=== PATIENT | female | born 1945 | race Caucasian/White ===

== ENCOUNTER 2019-03-11 14:00 | Outpatient (CLI) | payer MEDICARE, SELFPAY ==
--- NOTE | 2019-03-11 14:13 | MR_ITS ---
WS: [id number] MRI LUMBAR SPINE NONCONTRAST HISTORY: DDD COMPARISON: 08/01/2015 TECHNIQUE: Sagittal and axial multisequence imaging is submitted. Moderate increase in thoracic kyphosis and lumbar lordosis. RIGHT convex curvature of the thoracic sp ine and LEFT convex curvature of the lumbar spine. Chronic degenerative changes in the endplates of T4 and T5. Disc desiccation throughout the lumbar spine most significant at L4-5 and L5-S1. Endplate osteophytes and degenerative changes in the vertebral bodies. No marrow edema. Conus terminates normally at L1-2 disc level. L1-L2: Less than 2 mm retrolisthesis of L1. There is mild asymmetric disc bulging to the LEFT. Mild L EFT foraminal stenosis. Moderate facet arthropathy. L2-L3: Annular disc bulging and mild osteophytic ridging with moderate facet arthropathy. Degenerativ e changes are causing mild central and subarticular recess stenosis. Osteophyte encroaches upon the R IGHT lateral thecal sac from the facet. Mild bilateral foraminal narrowing. L3-L4: Moderate annular disc bulging with marked facet and ligamentum flavum arthropathy. Shallow harry tral disc protrusion. Mild central and LEFT foraminal stenosis. Moderate RIGHT subarticular recess an d foraminal stenosis. L4-L5: Annular disc bulging and a moderate size central disc protrusion and marked facet arthropathy. Deformity of the ventral thecal sac. Mild central, subarticular recess and foraminal narrowing. L5-S1: Mild annular disc bulging. No significant stenosis. Paraspinal soft tissues are negative. MR/MR lumbar spine wo con* [id number] IMPRESSION: 1. Moderate progression of degenerative facet disease and disc disease since . 2. Moderate central disc protrusion at L4-5 has increased since the prior stud y. Degenerative changes result in mild central, subarticular recess and foramin al narrowing at L4-5. 3. Moderate central and subarticular recess stenosis and foraminal stenosis at L2-3. 4. Moderate RIGHT subarticular recess and foraminal stenosis at L3-4 and mild central and LEFT foraminal stenosis at L3-4. 5. S-shaped thoracolumbar scoliosis.
== END 2019-03-11 14:01 | disposition home or self-care (01) ==
LOC: RADWPI 14:07
PROVIDERS: Family Provider Family Medicine; PCP Family Medicine; Visit Provider Nurse Practitioner
DX: M51.36 Other intervertebral disc degeneration, lumbar region (principal); M51.26 Other intervertebral disc displacement, lumbar region; M48.061 Spinal stenosis, lumbar region without neurogenic claudication; M41.86 Other forms of scoliosis, lumbar region
CPT/HCPCS: 72148

== ENCOUNTER 2019-03-17 23:12 | Emergency (ER) | payer MEDICARE, SELFPAY ==
[2019-03-17 23:20] VITALS: BP 202/76; PULSE 78; RESP 16; TEMP 36.4; O2SAT 97; BMI 43.4
[2019-03-17 23:41] VITALS: BP 152/66; PULSE 75; PULSE 81; RESP 16; O2SAT 96; O2SAT 97
--- NOTE | 2019-03-17 23:42 | W.ED.GENADLT ---
HPI - General Adult General: Chief complaint: General Medical Stated complaint: high blood sugar Time Seen by Provider: 03/17/19 23:30 History of Present Illness: HPI narrative: Patient complains of high blood sugars over last few days. Patient has put on some weight since . 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 Patient has machine that checks her blood sugar every 5 minutes that she wears. Patient is feeling better now sugar is down to 300. Was told by Dr. Toledo come into the ER and possibly get some IV fluids. Follow-up with him later. Onset (ago): day(s) Associated symptoms: Deny chest pain, dyspnea, headache(s), nausea, rash or vomiting Review of Systems Narrative: high blood sugar Const: Denies: fever, chills or body aches Eyes: Denies: change in vision or blurry vision ENMT: Denies: throat pain or nasal congestion Card: Denies: chest pain or shortness of breath on exertion Resp: Denies: shortness of breath, productive cough or non-productive cough GI: Denies: abdominal pain, nausea or vomiting Musc: Denies: extremity pain Skin/Breast: Denies: rash Neuro: Denies: headache Psych: Denies: anxiety or depression Laci/Lymph: Denies: easy bruising Physical Exam Const: COMMON NORMALS: no apparent distress, average body habitus and oriented x3 HENMT: COMMON NORMALS: normocephalic HEAD & SCALP: normal to inspection and normocephalic FACE & SINUS: normal facial exam Eye: COMMON NORMALS: conjunctivae normal GENERAL EYE: normal appearance of both eyes CONJUNCTIVA: Yes conjunctivae normal Neck/C-Spine: COMMON NORMALS: no JVD Chest: COMMONS NORMALS: inspection of chest normal Resp: COMMON NORMALS: normal respiratory effort and clear to auscultation bilaterally AUSCULTATION: clear to auscultation bilaterally Cardio: COMMON NORMALS: no JVD, regular rate and regular rhythm RATE: regular rate RHYTHM: regular rhythm GI: COMMON NORMALS: normal to inspection, nondistended, normoactive bowel sounds Extremity: COMMON NORMALS: normal to inspection and full ROM Neuro: COMMON NORMALS: oriented x3 Course Vital Signs: Vital signs: Vital Signs Temperature 97.6 F 03/17/19 23:20 Pulse Rate 75 03/17/19 23:41 Respiratory Rate 16 03/17/19 23:41 Blood Pressure 152/66 03/17/19 23:41 Pulse Oximetry 97 03/17/19 23:41 [facility] - General Adult Lab Data: Labs: Lab Results 03/17/19 03/17/19 Range/Units 23:53 23:53 WBC 7.0 (4.0-10.0) 10^3/ uL RBC 4.72 (4.1-5.3) 10^6/u L Hgb 13.7 (11.5-15.3) g/dL Hct 40.9 (37.0-47.0) % MCV 86.7 (81-99) fL MCH 29.0 (28.0-34.0) pg MCHC 33.5 (30.0-36.0) g/dL RDW 13.2 (12.1-15.1) % Plt Count 189 (130-400) 10^3/c mm MPV 10.4 (7.4-10.4) fL Neut % (Auto) 55.3 % Lymph % (Auto) 30.4 % Ward % (Auto) 10.2 % Eos % (Auto) 3.3 % Baso % (Auto) 0.7 % Neut # (Auto) 3.9 (1.8-7.7) 10^3/u L Lymph # (Auto) 2.1 (0.8-4.8) 10^3/u L Ward # (Auto) 0.7 (0.2-0.9) 10^3/u L Eos # (Auto) 0.2 (0.0-0.8) 10^3/u L Baso # (Auto) 0.1 (0.0-0.1) 10^3/u L Nucleated RBC % (a uto) 0 % Nucleated RBCs # 0.0 /100WBC Sodium 139 (136-145) mmol/L Potassium 3.8 (3.5-5.1) mmol/L Chloride 101 (98-107) mmol/L Carbon Dioxide 23 (22-29) mmol/L Anion Gap 18.8 (5-19) BUN 15 (8-23) mg/dL Creatinine 0.7 (0.5-0.9) mg/dL Glucose 273 H (74-106) mg/dL Calcium 9.9 (8.8-10.2) mg/Dl Total Bilirubin 0.3 (0.15-1.2) mg/dL AST 23 (0-32) U/L ALT 34 H (0-33) U/L Alkaline Phosphata se 54 (35-105) IU/L Total Protein 7.5 (6.6-8.7) g/dL Albumin 4.6 (3.5-5.2) g/dL Globulin 2.9 (1.3-4.6) g/dL Discharge Plan Discharge Prescriptions: No Action enalapril maleate 5 mg tablet 5 mg PO BID RF: 0 insulin lispro [Humalog KwikPen Insulin] 100 unit/mL insulin pen 10 unit SUBCUT TID RF: 0 furosemide [Lasix] 40 mg tablet 40 mg PO QAM PRN (Reason: edema) RF: 0 liothyronine 25 mcg tablet 25 mcg PO ONCE RF: 0 mupirocin 2 % ointment 1 applic TOPICAL TID RF: 0 levothyroxine [Synthroid] 200 mcg tablet 200 mcg PO ONCE RF: 0 Coding Level of Care Code ED Golf Sales Manager for Chg Fwd Exam Problem Focused
[2019-03-17] MEDS: sodium chloride 0.9% 1,000 ML 999 ML IV (23:54)
[2019-03-17 23:58] LABS: Basophils # 0.1 10^3/uL (0.0-0.1); Basophils % 0.7 %; Eosinophils # 0.2 10^3/uL (0.0-0.8); Eosinophils % 3.3 %; Hematocrit 40.9 % (37.0-47.0); Hemoglobin 13.7 g/dL (11.5-15.3); Lymphocytes # 2.1 10^3/uL (0.8-4.8); Lymphocytes % 30.4 %; Mean Corpuscular HGB Conc 33.5 g/dL (30.0-36.0); Mean Corpuscular Volume 86.7 fL (81-99); Mean Platelet Volume 10.4 fL (7.4-10.4); Monocytes # 0.7 10^3/uL (0.2-0.9); Monocytes % 10.2 %; Neutrophils # 3.9 10^3/uL (1.8-7.7); Neutrophils % 55.3 %; Nucleated Red Blood Cells % 0 %; Platelet Count 189 10^3/cmm (130-400); Red Blood Count 4.72 10^6/uL (4.1-5.3); Red Cell Distribution Width 13.2 % (12.1-15.1)
[2019-03-18 00:19] LABS: Alanine Aminotransferase 34 U/L (0-33); Albumin Level 4.6 g/dL (3.5-5.2); Alkaline Phosphatase 54 IU/L (35-105); Anion Gap 18.8 (5-19); Aspartate Amino Transferase 23 U/L (0-32); Blood Urea Nitrogen 15 mg/dL (8-23); Calcium 9.9 mg/Dl (8.8-10.2); Carbon Dioxide 23 mmol/L (22-29); Chloride 101 mmol/L (98-107); Globulin 2.9 g/dL (1.3-4.6); Glucose 273 mg/dL (74-106); Potassium 3.8 mmol/L (3.5-5.1); Sodium 139 mmol/L (136-145); Total Bilirubin 0.3 mg/dL (0.15-1.2); Total Protein 7.5 g/dL (6.6-8.7)
[2019-03-18 01:12] VITALS: BP 143/80; PULSE 70; RESP 15; TEMP 36.1; O2SAT 70
== END 2019-03-18 01:14 | disposition home or self-care (01) ==
PROVIDERS: Emergency Provider Nurse Practitioner Family; Family Provider Family Medicine; PCP Family Medicine
DX: R73.9 Hyperglycemia, unspecified (principal); Z79.4 Long term (current) use of insulin
CPT/HCPCS: 36415; 80053; 85025; 96360; 99282; J7030

== ENCOUNTER 2019-05-13 | Outpatient (RCR) | payer MEDICARE, SELFPAY | END 2019-05-18 | disposition home or self-care (01) | LOC: APT | PROVIDERS: Family Provider Family Medicine; PCP Nurse Practitioner; Referring Provider Nurse Practitioner; Visit Provider Nurse Practitioner | DX: M54.16 Radiculopathy, lumbar region (principal) | CPT/HCPCS: 97110; 97140; 97163 ==

== ENCOUNTER → 2019-05-18 09:19 | Outpatient (BNVA) | payer MEDICARE, SELFPAY | PROVIDERS: Family Provider Family Medicine; PCP Family Medicine; Visit Provider Nurse Practitioner | DX: R05 Cough (principal); E11.9 Type 2 diabetes mellitus without complications; I70.90 Unspecified atherosclerosis | CPT/HCPCS: 71046; 85025 ==

== ENCOUNTER → 2019-07-22 14:44 | Outpatient (BNVA) | payer MEDICARE, SELFPAY | PROVIDERS: Family Provider Family Medicine; PCP Family Medicine; Visit Provider Podiatrist Foot & Ankle Surgery | DX: M79.672 Pain in left foot (principal); M85.872 Other specified disorders of bone density and structure, left ankle and foot; M20.42 Other hammer toe(s) (acquired), left foot; M19.072 Primary osteoarthritis, left ankle and foot; M21.42 Flat foot [pes planus] (acquired), left foot; M77.32 Calcaneal spur, left foot | CPT/HCPCS: 73630 ==

== ENCOUNTER → 2019-08-04 14:22 | Outpatient (BNVA) | payer MEDICARE, SELFPAY | PROVIDERS: Family Provider Family Medicine; PCP Nurse Practitioner; Visit Provider Specialist | DX: F43.10 Post-traumatic stress disorder, unspecified (principal); M48.062 Spinal stenosis, lumbar region with neurogenic claudication; R41.3 Other amnesia | CPT/HCPCS: 99214 ==

== ENCOUNTER 2019-09-16 09:39 | Outpatient (CLI) | payer MEDICARE, SELFPAY ==
--- NOTE | 2019-09-16 13:03 | PFTS_ITS ---
Date of Study:09/16/19 Date of Dictation: MECHANICS: Forced vital capacity (FVC) is normal. Forced expiratory volume in one second (FEV1) is normal. FEV1/FVC is normal. FLOW VOLUME LOOP: Normal except hesitation in the beginning of the forced expiratory maneuver. LUNG VOLUMES: Total lung capacity (TLC) is normal. Residual volume (RV) is normal. DIFFUSING CAPACITY FOR CARBON MONOXIDE: Normal. INTERPRETATION: The pulmonary function tests are normal. Lung volumes are normal. Gas exchange (DLCO) is normal. MTDD
== END 2019-09-16 09:40 | disposition home or self-care (01) ==
LOC: RT 09:45
PROVIDERS: PCP Nurse Practitioner; Visit Provider Internal Medicine Critical Care Medicine
DX: R06.02 Shortness of breath (principal)
CPT/HCPCS: 94010; 94726; 94729

== ENCOUNTER 2019-09-23 11:16 | Outpatient (CLI) | payer MEDICARE, SELFPAY ==
--- NOTE | 2019-09-23 11:38 | MM_ITS ---
WS: [id number] BILATERAL DIGITAL SCREENING MAMMOGRAPHY WITH CAD CLINICAL INFORMATION: HX RT BREAST CA HISTORY: Screening mammogram. No current complaints. COMPARISON: TECHNIQUE: Bilateral CC and MLO views. FINDINGS: Scattered fibroglandular densities bilaterally. Evidence of prior lumpectomy right breast. Skin thick ening with prior treatment-related changes. Surgical clips right axilla. No suspicious focal mass, as ymmetry, calcifications, or architectural distortion. No evidence of malignancy. Incidental punctate calcifications. MM/[place] [id number] IMPRESSION: BI-RADS: 2-Benign FOLLOW UP: 1 Year Follow-up Recommend return to annual diagnostic mammography.
== END 2019-09-23 11:17 | disposition home or self-care (01) ==
LOC: RADSHAW 11:22
PROVIDERS: PCP Nurse Practitioner; Visit Provider Surgery Surgical Oncology
DX: Z85.3 Personal history of malignant neoplasm of breast (principal)
CPT/HCPCS: 77066

== ENCOUNTER 2019-10-27 11:00 | Outpatient (CLI) | payer MEDICARE, SELFPAY | END 2019-10-27 11:01 | disposition home or self-care (01) | LOC: SLEEP 10-28 10:40 | PROVIDERS: PCP Nurse Practitioner; Visit Provider Internal Medicine Critical Care Medicine | DX: R06.02 Shortness of breath (principal) | CPT/HCPCS: 73630; 94762 ==

== ENCOUNTER → 2019-11-10 09:44 | Outpatient (BNVA) | payer MEDICARE, SELFPAY | PROVIDERS: PCP Nurse Practitioner; Visit Provider Nurse Practitioner | DX: E11.65 Type 2 diabetes mellitus with hyperglycemia (principal); E03.8 Other specified hypothyroidism; Z79.4 Long term (current) use of insulin; M35.00 Sjogren syndrome, unspecified | CPT/HCPCS: 80053; 85025; 85651; 86225 ==

== ENCOUNTER → 2019-11-29 10:19 | Outpatient (BNVA) | payer MEDICARE, SELFPAY | PROVIDERS: PCP Nurse Practitioner; Visit Provider Nurse Practitioner | DX: M35.00 Sjogren syndrome, unspecified (principal); E03.9 Hypothyroidism, unspecified | CPT/HCPCS: 80069; 85651; 86038; 86140; 86225; 86235 ==

== ENCOUNTER 2019-12-11 05:39 | Emergency (ER) | payer MEDICARE, SELFPAY ==
[2019-12-11 05:55] VITALS: BP 155/69; PULSE 84; RESP 20; TEMP 36; O2SAT 98; BMI 43.7
--- NOTE | 2019-12-11 06:14 | XRR_ITS ---
PROCEDURE INFORMATION: Exam: XR Left Foot Complete Exam date and time: 12/11/2019 6:16 AM Age: 74 years old Clinical indication: Patient HX: Chronic left foot pain. History of pad and diabetes. TECHNIQUE: Imaging protocol: XR Left foot. Views: 3 or more views. COMPARISON: CR XR foot LT min 3V* [id number] 10/27/2019 9:51 AM FINDINGS: Bones/joints: Degenerative change. Small calcaneal spur. No acute bony injury or malalignment. Soft tissues: Calcification at the Achilles and peroneus tendon attachment sites. When correlating with the previous study, no significant interval changes are present. XR/XR foot LT min 3V* [id number] IMPRESSION: Degenerative change.
[2019-12-11 06:29] LABS: Basophils % 0.7 %; Eosinophils # 0.1 10^3/uL (0.0-0.8); Eosinophils % 2.6 %; Hematocrit 41.6 % (37.0-47.0); Hemoglobin 13.7 g/dL (11.5-15.3); Lymphocytes # 1.5 10^3/uL (0.8-4.8); Lymphocytes % 27.1 %; Mean Corpuscular HGB Conc 32.9 g/dL (30.0-36.0); Mean Platelet Volume 10.7 fL (7.4-10.4); Monocytes # 0.5 10^3/uL (0.2-0.9); Monocytes % 9.4 %; Neutrophils # 3.25 10^3/uL (1.8-7.7); Nucleated Red Blood Cells % 0 %; Platelet Count 172 10^3/cmm (130-400); Red Blood Count 4.57 10^6/uL (4.1-5.3); Red Cell Distribution Width 13.1 % (12.1-15.1); White Blood Count 5.4 10^3/uL (4.0-10.0)
[2019-12-11 07:01] LABS: Alanine Aminotransferase 48 U/L (0-33); Alkaline Phosphatase 44 IU/L (35-105); Anion Gap 15.9 (5-19); Aspartate Amino Transferase 42 U/L (0-32); Blood Urea Nitrogen 14 mg/dL (8-23); Calcium 9.2 mg/dL (8.5-10.5); Carbon Dioxide 23 mmol/L (22-29); Chloride 102 mmol/L (98-107); Creatinine Clr Calc Pharmacy 72.0184; Globulin 2.7 g/dL (1.3-4.6); Glucose 226 mg/dL (65-115); Osmolality Calculated 292 mOsm/kg (285-295); Potassium 3.9 mmol/L (3.5-5.1); Sodium 137 mmol/L (136-145); Total Bilirubin 0.5 mg/dL (0.15-1.2); Total Protein 6.7 g/dL (6.6-8.7)
--- NOTE | 2019-12-11 07:25 | ED_ITS ---
HPI - Extremity Problem General: Chief complaint: Extremity Problem,Nontraumatic Stated complaint: Left Foot Pain/Redness Time Seen by Provider: 12/11/19 06:07 History of Present Illness: HPI Narrative: 74-year-old female presents the emergency room complaining of left foot pain this been ongoing issue. She is opposed to any oral medications for that she has been using a topical diclofenac she is adamant at the outset not wanting to take any oral anti-inflammatories or steroids she says she is allergic to them and they cause anaphylaxis. She has been using topical diclofenac. MD Complaint: extremity pain, extremity swelling and joint pain Onset (ago): year(s) Pain Consistency: constant Location: left Quality: aching Radiation: none Relieving factors: rest Exacerbating factors: walking Associated symptoms: Reports arthralgias; Deny chest pain, fever(s), myalgias, rash or short of breath Review of Systems Const: Denies: fever(s) Card: Denies: chest pain Skin/Breast: Denies: rash PFSH ED PFSH: Medical History Adult onset hypothyroidism Chronic bilateral thoracic back pain Controlled diabetes mellitus with hyperglycemia, with long-term current use of insulin Lumbar disc disease with radiculopathy Sjogren's disease Surgical History History of lumpectomy of right breast History of total bilateral knee replacement Hx of cholecystectomy Hx of vaginal hysterectomy Family History Unknown Adopted [place] in [place] Social History Smoking and tobacco status: never smoked Second hand smoke exposure: No Smoking risk assessment/counseling performed?: No Alcohol intake: never Desire information about alcohol rehabilitation?: No Counseling given: No Desire information about substance/drug rehabilitation?: No Counseling given: No Adopted: Yes Caregiver/support person: No Lives independently: Yes Household members: spouse Marital status: Number of children: 1 service: No Current occupational status: unemployed and retired History of recent travel: No Current gender identity: Female Physical Exam Const: COMMON NORMALS: no acute distress GENERAL APPEARANCE: cooperative an d comfortable ORIENTATION/CONSCIOUSNESS: Yes awake, Yes oriented to person, Yes oriented to place and Yes oriented to time HENMT: COMMON NORMALS: normocephalic, atraumatic and hearing grossly normal bilaterally HEAD & SCALP: normocephalic and atraumatic Neck/C-Spine: COMMON NORMALS: no JVD Lymph: LYMPHATIC: no lymphadenopathy noted and no lymphedema noted Resp: COMMON NORMALS: normal respiratory effort, No retractions, No use of a ccessory muscles and clear to auscultation bilaterally AUSCULTATION: clear to auscultation bilaterally Cardio: COMMON NORMALS: no JVD, regular rate, regular rhythm and No murmurs present (Cardio) RATE: regular rate RHYTHM: regular rhythm GI: COMMON NORMALS: Soft to palpation and No hepatosplenomegaly present AUSCULTATION: Yes normoactive bowel sounds PALPATION: Yes Soft to palpation, No Tenderness to palpation present (GI), No Guarding due to palpation present (GI) and Yes No hepatosplenomegaly present Extremity: COMMON NORMALS: normal to inspection, full ROM, capillary refill normal, no joint enlargement and no calf tenderness NARRATIVE EXTREMITY EXAM: No erythema or deformity of the foot dorsum plantar flex strength 5 of 5 dorsalis pedis posterior tibialis pedis palpable. Neuro: SENSORIUM/ORIENTATION: Yes oriented to person, Yes oriented to place and Yes oriented to time Skin: COMMON NORMALS: no rashes or lesions noted GENERAL SKIN EXAM: no rashes or lesions noted Course Vital Signs: Vital signs: Vital Signs Temperature 96.8 F L 12/11/19 05:55 Pulse Rate 79 12/11/19 08:30 Respiratory Rate 18 12/11/19 08:30 Blood Pressure 145/105 12/11/19 08:30 Pulse Oximetry 95 12/11/19 08:30 MDM - Extremity (Nontraumatic) MDM Narrative: Medical decision making narrative: Reviewed the notes from Dr. Redding. I think she may have some lumbar radiculopathy given her previous imaging. She does have some arthritis of the great toe. I do not know at this point if anything regarding her complaint can be definitively diagnosed in the emergency room beyond what is already been done she has had this complaint for a year. Recommend that she follow-up with her primary care doctor to explore lumbar radiculopathy as a cause of her symptoms including possible further advanced imaging or EMG or referral to neurosurgery if felt appropriate. As far as the direct discomfort in her foot recommend that she follow-up again with Dr. Redding to see if he feels there is anything else that can be done beyond what has been done in the past. Lab Data: Labs: Lab Results 12/11/19 12/11/19 Range/Units 06:24 06:24 WBC 5.4 (4.0-10.0) 10^3/ uL RBC 4.57 (4.1-5.3) 10^6/u L Hgb 13.7 (11.5-15.3) g/dL Hct 41.6 (37.0-47.0) % MCV 91.0 (81-99) fL MCH 30.0 (28.0-34.0) pg MCHC 32.9 (30.0-36.0) g/dL RDW 13.1 (12.1-15.1) % Plt Count 172 (130-400) 10^3/c mm MPV 10.7 H (7.4-10.4) fL Neut % (Auto) 60.0 % Lymph % (Auto) 27.1 % [place] % (Auto) 9.4 % Eos % (Auto) 2.6 % Baso % (Auto) 0.7 % Neut # (Auto) 3.25 (1.8-7.7) 10^3/u L Lymph # (Auto) 1.5 (0.8-4.8) 10^3/u L [place] # (Auto) 0.5 (0.2-0.9) 10^3/u L Eos # (Auto) 0.1 (0.0-0.8) 10^3/u L Baso # (Auto) 0.0 (0.0-0.1) 10^3/u L Nucleated RBC % (a uto) 0 % Nucleated RBCs # 0.0 /100WBC Sodium 137 (136-145) mmol/L Potassium 3.9 (3.5-5.1) mmol/L Chloride 102 (98-107) mmol/L Carbon Dioxide 23 (22-29) mmol/L Anion Gap 15.9 (5-19) BUN 14 (8-23) mg/dL Creatinine 0.8 (0.5-0.9) mg/dL GFR Calculation Not Reportable Glucose 226 H (65-115) mg/dL Calculated Osmolal ity 292 (285-295) mOsm/k g Calcium 9.2 (8.5-10.5) mg/dL Total Bilirubin 0.5 (0.15-1.2) mg/dL AST 42 H (0-32) U/L ALT 48 H (0-33) U/L Alkaline Phosphata se 44 (35-105) IU/L Total Protein 6.7 (6.6-8.7) g/dL Albumin 4.0 (3.5-5.2) g/dL Globulin 2.7 (1.3-4.6) g/dL Discharge Plan Discharge Patient Disposition: Home Clinical Impression: Arthritis of big toe, Lumbar stenosis with neurogenic claudication, Lower extremity edema Condition: Stable Prescriptions: No Action furosemide [Lasix] 40 mg tablet 40 mg PO QAM PRN (Reason: edema) RF: 0 mupirocin 2 % ointment 1 applic TOPICAL TID PRNRF: 0 (DME) nebulizer accessories Kit See Rx Instructions .ROUTE .MEDSUPPLY Qty: 1 RF: 0 liothyronine 25 mcg tablet 25 mcg PO DAILY Qty: 90 RF: 1 enalapril maleate 5 mg tablet 5 mg PO BID Qty: 180 RF: 0 Levemir U-100 Insulin 100 unit/mL solution 80 unit SUBCUT BID Qty: 50 RF: 5 insulin lispro [Humalog KwikPen Insulin] 100 unit/mL insulin pen See Rx Instructions SUBCUT .COMPLEX Qty: 45 RF: 2 levothyroxine [Synthroid] 200 mcg tablet 200 mcg PO DAILY Qty: 90 RF: 0 guaifenesin 400 mg tablet 400 mg PO TID PRNRF: 0 nattokinease PO DAILY RF: 0 levalbuterol HCl [Xopenex] 1.25 mg/3 mL solution for nebulization 2.5 mg INHALATION Q4H PRN (Reason: shortness of breath or wheezing) RF: 0 montelukast 10 mg tablet 10 mg PO DAILY 90 Days Qty: 90 RF: 3 Discharge Orders: Discharge Order (Routine); Ordered 12/11/19 Ordered By: Meng Russ Referrals: Ja Redding DPM [Physician] - (continued L foot pain) Discharge Diet: Usual diet Discharge Activity: Increase activity as tolerated Activity Restrictions/Additional Instructions: Follow up with Dr. Redding as alysha as you are able, return to ER if worsens. Discharge Date/Time: 12/11/19 08:30 Coding Level of Care Code ED [employer] for Allen Llanos
[2019-12-11] MEDS: ketorolac 30 mg/mL INJ IVP (08:01)
[2019-12-11 08:30] VITALS: BP 145/105; PULSE 79; RESP 18; O2SAT 95
== END 2019-12-11 08:30 | disposition home or self-care (01) ==
PROVIDERS: Emergency Provider Family Medicine; PCP Nurse Practitioner
DX: M19.072 Primary osteoarthritis, left ankle and foot (principal); M48.062 Spinal stenosis, lumbar region with neurogenic claudication; R60.0 Localized edema; Z79.4 Long term (current) use of insulin; E11.9 Type 2 diabetes mellitus without complications
CPT/HCPCS: 12345; 73630; 80053; 85025; 96374; 96375; 99282; 99283; J1885

== ENCOUNTER → 2020-03-21 10:03 | Outpatient (BNVA) | payer MEDICARE, SELFPAY | PROVIDERS: PCP Nurse Practitioner; Visit Provider Nurse Practitioner | DX: M19.032 Primary osteoarthritis, left wrist (principal); M25.532 Pain in left wrist | CPT/HCPCS: 73110 ==

== ENCOUNTER → 2020-04-13 08:36 | Outpatient (BNVA) | payer MEDICARE, SELFPAY | PROVIDERS: PCP Nurse Practitioner; Referring Provider Nurse Practitioner; Visit Provider Specialist | DX: M25.532 Pain in left wrist (principal) | CPT/HCPCS: 73110 ==

== ENCOUNTER 2020-05-03 09:10 | Outpatient (RCR) | payer MEDICARE, SELFPAY | END 2020-05-07 23:59 | disposition home or self-care (01) | LOC: SOT 09:10 | PROVIDERS: PCP Nurse Practitioner; Referring Provider Specialist; Visit Provider Specialist | DX: S60.212D Contusion of left wrist, subsequent encounter (principal) | CPT/HCPCS: 97166 ==

== ENCOUNTER 2020-05-08 06:00 | Outpatient (RCR) | payer MEDICARE, SELFPAY | END 2020-06-07 23:59 | disposition home or self-care (01) | LOC: SOT 06:00 | PROVIDERS: PCP Nurse Practitioner; Referring Provider Specialist; Visit Provider Specialist | DX: S60.212D Contusion of left wrist, subsequent encounter (principal); X58.XXXD Exposure to other specified factors, subsequent encounter | CPT/HCPCS: 97035; 97110; 97140 ==

== ENCOUNTER → 2020-06-05 13:38 | Outpatient (BNVA) | payer MEDICARE, SELFPAY | PROVIDERS: PCP Nurse Practitioner; Visit Provider Specialist | DX: M25.532 Pain in left wrist (principal); M19.032 Primary osteoarthritis, left wrist; Z46.89 Encounter for fitting and adjustment of other specified devices | CPT/HCPCS: 73110; L3809 ==

== ENCOUNTER 2020-06-05 15:00 | Outpatient (CLI) | payer MEDICARE, SELFPAY | END 2020-06-05 15:01 | disposition home or self-care (01) | LOC: SPT 15:03 | PROVIDERS: PCP Nurse Practitioner; Visit Provider Orthopaedic Surgery | DX: Z46.89 Encounter for fitting and adjustment of other specified devices (principal); M25.532 Pain in left wrist | CPT/HCPCS: L3809 ==

== ENCOUNTER 2020-06-19 10:21 | Outpatient (CLI) | payer MEDICARE, SELFPAY ==
--- NOTE | 2020-06-19 11:32 | MR_ITS ---
WS: [id number] INDICATION: Left wrist pain TECHNIQUE: MR of the left wrist without gadolinium enhancement. Coronal T1, Coronal PD, coronal STIR, coronal 3-D FSPGR, axial PD, axial T2, sagittal T1, FINDINGS: Palpable marker over the dorsal wrist. Small amount of underlying subcutaneous edema. Edema with partial tear involving the radial collateral ligament. This is deep to the palpable marker. Edema along the adjacent superficial branch of the radial nerve and cephalic vein. Small amount of ed alexis along the extensor pollicis brevis tendon and the abductor pollicis longus tendon. Mild degenerative arthritis radiocarpal joint and DRUJ. No acute fractures. Ulna styloid is normal. N ormal radial styloid. Mild cystic degenerative changes involving the proximal and distal carpal row. Normal scapholunate interval. No evidence of avascular necrosis. Degenerative arthritis first CMC and STT. Proximal metacarpals are normal. Normal extensor compartment tendons. Normal flexor compartment tendons. Normal carpal tunnel. Normal extensor carpi ulnaris. Small amount of edema along the extensor retinaculum. Normal TFCC. MR/MR wrist LT wo con* [id number] IMPRESSION: 1. Edema with partial tear involving the radial collateral ligament along the radial styloid. This is deep to the palpable marker. 2. Soft tissue edema along theExtensor pollicis brevis and abductor pollicis l ongus tendons. 3. Associated edema along the superficial branch of the radial nerve and cepha lic vein. 4. Degenerative arthritis the first CMC and STT. 5. Normal TFCC. 6. Normal scaphoid and lunate.
== END 2020-06-19 10:22 | disposition home or self-care (01) ==
PROVIDERS: PCP Nurse Practitioner; Visit Provider Specialist
DX: M19.032 Primary osteoarthritis, left wrist (principal); R60.0 Localized edema
CPT/HCPCS: 73221

== ENCOUNTER 2020-06-29 12:26 | Outpatient (CLI) | payer MEDICARE, SELFPAY | END 2020-06-29 12:27 | disposition home or self-care (01) | LOC: SPT 12:27 | PROVIDERS: PCP Nurse Practitioner; Visit Provider Specialist | DX: Z46.89 Encounter for fitting and adjustment of other specified devices (principal); S63.502D Unspecified sprain of left wrist, subsequent encounter; X58.XXXD Exposure to other specified factors, subsequent encounter; M65.4 Radial styloid tenosynovitis [de Quervain] | CPT/HCPCS: 97760; L3807 ==

== ENCOUNTER → 2020-07-31 15:46 | Outpatient (BNVA) | payer MEDICARE, SELFPAY | PROVIDERS: PCP Nurse Practitioner; Visit Provider Nurse Practitioner | DX: R30.0 Dysuria (principal); B37.9 Candidiasis, unspecified | CPT/HCPCS: 81000 ==

== ENCOUNTER → 2020-08-08 09:45 | Outpatient (BNVA) | payer MEDICARE, SELFPAY | PROVIDERS: PCP Nurse Practitioner; Visit Provider Specialist | DX: G31.84 Mild cognitive impairment of uncertain or unknown etiology (principal) | CPT/HCPCS: 96116; 99213 ==

== ENCOUNTER → 2020-08-10 11:01 | Outpatient (BNVA) | payer MEDICARE, SELFPAY | PROVIDERS: PCP Nurse Practitioner; Visit Provider Nurse Practitioner | DX: E11.65 Type 2 diabetes mellitus with hyperglycemia (principal); R30.0 Dysuria; Z79.4 Long term (current) use of insulin | CPT/HCPCS: 81003; 87086 ==

== ENCOUNTER → 2020-09-26 09:27 | Outpatient (BNVA) | payer MEDICARE, SELFPAY | PROVIDERS: PCP Nurse Practitioner; Visit Provider Nurse Practitioner | DX: E03.9 Hypothyroidism, unspecified (principal); E11.65 Type 2 diabetes mellitus with hyperglycemia; Z79.4 Long term (current) use of insulin | CPT/HCPCS: 80053; 80061; 82043; 83036; 84439; 84443; 84481; 85025 ==

== ENCOUNTER 2020-10-19 06:00 | Outpatient (RCR) | payer MEDICARE, SELFPAY | END 2020-11-07 23:59 | disposition home or self-care (01) | LOC: SOT 06:00 | PROVIDERS: PCP Nurse Practitioner; Referring Provider Orthopaedic Surgery; Visit Provider Orthopaedic Surgery | DX: M25.532 Pain in left wrist (principal) | CPT/HCPCS: 97035; 97110; 97112; 97166; 97530 ==

== ENCOUNTER → 2020-10-26 11:03 | Outpatient (BNVA) | payer MEDICARE, SELFPAY | PROVIDERS: PCP Nurse Practitioner; Visit Provider Nurse Practitioner Family | DX: Z20.822 Contact with and (suspected) exposure to COVID-19 (principal); Z11.52 Encounter for screening for COVID-19 | CPT/HCPCS: 87635 ==

== ENCOUNTER 2020-11-08 06:00 | Outpatient (RCR) | payer MEDICARE, SELFPAY | END 2020-12-07 23:59 | disposition home or self-care (01) | LOC: SOT 06:00 | PROVIDERS: PCP Nurse Practitioner; Referring Provider Orthopaedic Surgery; Visit Provider Orthopaedic Surgery | DX: M25.532 Pain in left wrist (principal) | CPT/HCPCS: 97110; 97112 ==

== ENCOUNTER → 2020-11-14 12:05 | Outpatient (BNVA) | payer MEDICARE, SELFPAY | PROVIDERS: PCP Nurse Practitioner; Visit Provider Specialist | DX: G31.9 Degenerative disease of nervous system, unspecified (principal) | CPT/HCPCS: 99214 ==

== ENCOUNTER 2020-11-23 08:13 | Outpatient (CLI) | payer MEDICARE, SELFPAY ==
--- NOTE | 2020-11-23 08:27 | CT_ITS ---
WS: [id number] CT HEAD TECHNIQUE: Noncontrast CT of the head obtained from the skullbase to the vertex. CLINICAL INFORMATION: I63.9 - Cerebral infarction, unspecified COMPARISON: CT March 30, 2018 DLP: 992.[address] scans at [facility] use at least one of these dose optimization techniques: automated e xposure control; mA and/or kV adjustment per patient size (includes targeted exams where dose is matc hed to clinical indication); or iterative reconstruction. FINDINGS: No evidence of intracranial hemorrhage or mass effect. Ventricular system and basal cisterns are little nt. Mild small vessel changes with moderate parenchymal volume loss. Cavernous carotid calcification. No extra-axial fluid collections. No evidence of mass or mass effect. Normal dumont-white differentiat ion. Paranasal sinuses and mastoid air cells are well aerated. .Normal visualized soft tissues. CT/CT head wo con* [id number] IMPRESSION: 1. No evidence of intracranial hemorrhage or mass effect. 2. Mild small vessel changes moderate parenchymal volume loss unchanged from p revious. 3. Paranasal sinuses and mastoid air cells are well aerated. 4. Overall no significant changes since March 30, 2018. 5. If concern for ischemia, MRI could be performed for further evaluation.
== END 2020-11-23 08:14 | disposition home or self-care (01) ==
PROVIDERS: PCP Nurse Practitioner; Visit Provider Specialist
DX: I63.9 Cerebral infarction, unspecified (principal)
CPT/HCPCS: 70450

== ENCOUNTER 2020-12-14 10:46 | Outpatient (CLI) | payer MEDICARE, SELFPAY ==
--- NOTE | 2020-12-14 11:00 | USCV_ITS ---
Alisha Hernandez Age: 75 Gender: F : 1945 Exam Date: 12/14/2020 11:23 Ordering Phys: Corrie Husain MD Technologist: KRISTIN [place] [facility] [place]: CAROTID STENOSIS Risk Factors: Previous Vascular Surgery: Right Brachial BP: / Left Brachial BP: / Right Left Velocity (cm/s) Spectral Plaque Velocity (cm/s) Spectral Plaque Syst/Diast Broadening Syst/Diast Broadening 108.00/14.80 Prox CCA 121.20/ 24.90 87.20/ 14.50 Mid CCA 84.90 / 19.80 78.60/ 15.40 Distal CCA 81.60 / 13.20 80.80/ 13.10 Prox ICA 20.90 / 20.90 70.30/ 15.10 Mid ICA 79.40 / 24.30 100.00/26.50 Distal ICA 93.70 / 27.60 125.70 ECA 118.00 0.81 ICA/CCA 0.94 Antegrade Vertebral Antegrade 69.10/ 17.10 cm/s 58.40/ 15.40 cm/s Tri Subclavian Tri 174.0 214.4 0 0 CONCLUSIONS Right ICA stenosis <50%. Mild atheromatous plaque right carotid bulb/ICA. Left ICA stenosis <50%. Mild atheromatous plaque left carotid bulb/ICA. Normal antegrade Doppler flow noted in the right vertebral artery. Normal antegrade Doppler flow noted in the left vertebral artery. Nick Vilchis MD (Electronically Signed) Final Date: 14 December 2020 16:39 S
== END 2020-12-14 10:47 | disposition home or self-care (01) ==
LOC: RAD 10:47
PROVIDERS: PCP Nurse Practitioner; Visit Provider Specialist
DX: I65.23 Occlusion and stenosis of bilateral carotid arteries (principal); R00.2 Palpitations
CPT/HCPCS: 93880

== ENCOUNTER → 2020-12-19 09:04 | Outpatient (BNVA) | payer MEDICARE, SELFPAY | PROVIDERS: PCP Nurse Practitioner; Referring Provider Nurse Practitioner; Visit Provider Internal Medicine | DX: E06.3 Autoimmune thyroiditis (principal); E11.65 Type 2 diabetes mellitus with hyperglycemia; Z79.4 Long term (current) use of insulin | CPT/HCPCS: 99204 ==

== ENCOUNTER → 2020-12-21 10:31 | Outpatient (BNVA) | payer MEDICARE, SELFPAY | PROVIDERS: PCP Nurse Practitioner; Visit Provider Nurse Practitioner | DX: E11.65 Type 2 diabetes mellitus with hyperglycemia (principal); Z79.4 Long term (current) use of insulin; E06.3 Autoimmune thyroiditis; Z23 Encounter for immunization | CPT/HCPCS: 81000; 83036; 84439; 84443; 84480 ==

== ENCOUNTER → 2021-01-09 10:18 | Outpatient (BNVA) | payer MEDICARE, SELFPAY | PROVIDERS: PCP Nurse Practitioner; Visit Provider Internal Medicine | DX: E06.3 Autoimmune thyroiditis (principal); E11.65 Type 2 diabetes mellitus with hyperglycemia; Z79.4 Long term (current) use of insulin | CPT/HCPCS: 84439; 84443; 84480 ==

== ENCOUNTER → 2021-01-31 10:35 | Outpatient (BNVA) | payer MEDICARE, SELFPAY | PROVIDERS: PCP Nurse Practitioner; Visit Provider Internal Medicine | DX: E06.3 Autoimmune thyroiditis (principal); E11.65 Type 2 diabetes mellitus with hyperglycemia; Z79.4 Long term (current) use of insulin | CPT/HCPCS: 99214 ==

== ENCOUNTER → 2021-02-06 11:03 | Outpatient (BNVA) | payer MEDICARE, SELFPAY | PROVIDERS: PCP Nurse Practitioner; Visit Provider Specialist | DX: F25.9 Schizoaffective disorder, unspecified (principal); F43.10 Post-traumatic stress disorder, unspecified | CPT/HCPCS: 99215 ==

== ENCOUNTER → 2021-05-01 09:43 | Outpatient (BNVA) | payer MEDICARE, SELFPAY | PROVIDERS: PCP Nurse Practitioner; Visit Provider Internal Medicine | DX: E06.3 Autoimmune thyroiditis (principal); E11.65 Type 2 diabetes mellitus with hyperglycemia; Z79.4 Long term (current) use of insulin | CPT/HCPCS: 99214 ==

== ENCOUNTER → 2021-06-18 09:17 | Outpatient (BNVA) | payer MEDICARE, OTHER, SELFPAY | PROVIDERS: PCP Nurse Practitioner; Visit Provider Internal Medicine | DX: E06.3 Autoimmune thyroiditis (principal); E11.65 Type 2 diabetes mellitus with hyperglycemia; Z79.4 Long term (current) use of insulin; I10 Essential (primary) hypertension | CPT/HCPCS: 80053; 80061; 84439; 84443 ==

== ENCOUNTER → 2021-07-16 10:43 | Outpatient (BNVA) | payer MEDICARE, OTHER, SELFPAY | PROVIDERS: PCP Nurse Practitioner; Visit Provider Specialist | DX: F44.81 Dissociative identity disorder (principal); I73.9 Peripheral vascular disease, unspecified; M48.062 Spinal stenosis, lumbar region with neurogenic claudication; F43.10 Post-traumatic stress disorder, unspecified | CPT/HCPCS: 99213; 99214 ==

== ENCOUNTER → 2021-07-25 08:24 | Outpatient (BNVA) | payer MEDICARE, OTHER, SELFPAY | PROVIDERS: PCP Nurse Practitioner; Visit Provider Internal Medicine | DX: E06.3 Autoimmune thyroiditis (principal); E11.65 Type 2 diabetes mellitus with hyperglycemia; M35.00 Sjogren syndrome, unspecified; Z79.4 Long term (current) use of insulin | CPT/HCPCS: 83036; 84439; 84443 ==

== ENCOUNTER → 2021-08-17 11:05 | Outpatient (BNVA) | payer MEDICARE, OTHER, SELFPAY | PROVIDERS: PCP Nurse Practitioner; Visit Provider Internal Medicine | DX: E11.65 Type 2 diabetes mellitus with hyperglycemia (principal); E06.3 Autoimmune thyroiditis; Z79.4 Long term (current) use of insulin | CPT/HCPCS: 99214 ==

== ENCOUNTER 2021-09-04 21:59 | Emergency (ER) | payer MEDICARE, SELFPAY ==
[2021-09-04 22:02] VITALS: BP 187/80; PULSE 81; RESP 17; TEMP 36.4; O2SAT 97; BMI 44.2
--- NOTE | 2021-09-04 22:10 | XRR_ITS ---
PROCEDURE INFORMATION: Exam: XR Left Foot Exam date and time: 09/04/2021 10:15 PM Age: 76 years old Clinical indication: Pain; Toes; Patient HX: Swelling and redness to left great toe. Patient has diabetic neuropathy and says she has fractured her toe before. ; Additional info: Injury, great toe injury TECHNIQUE: Imaging protocol: Radiologic exam of the Left foot. Views: 3 or more views. COMPARISON: No relevant prior studies available. FINDINGS: Bones/joints: No bone destruction or periosteal elevation. No fracture. Soft tissues: Normal. XR/XR foot LT min 3V* [id number] IMPRESSION: 1. No evidence of osteomyelitis. 2. No fracture.
--- NOTE | 2021-09-04 22:11 | ED_ITS ---
HPI - Extremity Problem General: Chief complaint: Extremity Injury, Lower Stated complaint: LT Toe pain Time Seen by Provider: 09/04/21 22:11 History of Present Illness: 76-year-old female comes in today with left foot pain. Patient reports that her left great toe has been aching. Patient reports that she has in the past had a fracture took about 3 months before it was decided that that was what was wrong with her foot. Patient denies any recent injury. Patient does have a history of diabetes and neuropathy. Review of Systems General: Reports: 10 or more systems reviewed and unremarkable except in HPI and below Musc: Reports: extremity pain PFSH ED PFSH: Medical History AB (asthmatic bronchitis) Chronic bilateral thoracic back pain Delusional disorder Diabetes mellitus with hyperglycemia, with long-term current use of insulin Essential (primary) hypertension Grief Cyrus's thyroiditis (~06/2020) Lumbar disc disease with radiculopathy Multiple personality disorder Psychiatric care Sjogren's disease Surgical History History of lumpectomy of right breast History of total bilateral knee replacement Hx of cholecystectomy Hx of vaginal hysterectomy Family History Unknown Adopted [place] in [place] Social History Smoking and tobacco status: never smoked Second hand smoke exposure: No Smoking risk assessment/counseling performed?: No Alcohol intake: never Desire information about alcohol rehabilitation?: No Counseling given: No Desire information about substance/drug rehabilitation?: No Counseling given: No Adopted: Yes Caregiver/support person: No Lives independently: Yes Marital status: / Number of children: 1 service: No Current occupational status: unemployed and retired History of recent travel: No Current gender identity: Female Physical Exam Const: COMMON NORMALS: alert HENMT: COMMON NORMALS: normocephalic HEAD & SCALP: normocephalic Neck/C-Spine: COMMON NORMALS: full ROM Resp: COMMON NORMALS: normal respiratory effort Cardio: COMMON NORMALS: regular rate RATE: regular rate Extremity: LEFT LOWER EXTREMITY: Yes foot & digits (No swelling or bruising, prompt capillary refill, decreased nerve sensation) Left foot and digits: Yes inspection, Yes palpation, Yes ROM and Yes neurovascular exam Neuro: SENSORIUM/ORIENTATION: Yes alert Course Vital Signs: Vital signs: Vital Signs Temperature 97.6 F 09/04/21 22:02 Pulse Rate 81 09/04/21 22:02 Respiratory Rate 17 09/04/21 22:02 Blood Pressure 187/80 09/04/21 22:02 Pulse Oximetry 97 09/04/21 22:02 MDM - Extremity (Nontraumatic) Medical Decision Making 76-year-old female comes in today with complaints of left foot pain without injury. On exam there is no obvious swelling or ecchymosis to the foot. Patient does have some tenderness of the MTP joint of the great toe. Differential diagnosis includes osteoarthritis, fracture, diabetic neuropathy. X-ray noted no fracture or acute abnormality. Patient may have some neuropathy versus osteoarthritis foot pain. Recommended patient follow-up with her buffer copper for further evaluation. Patient reported understanding. Lab Data Radiology Impressions Foot X-Ray 09/04/21 22:10 IMPRESSION: 1. No evidence of osteomyelitis. 2. No fracture. Discharge Plan Discharge Patient Disposition: Home Clinical Impression: Foot pain, left Condition: Stable Prescriptions: No Action (DME) Fast form thumb spica See Rx Instructions .Route .MEDSUPPLY Qty: 1 0RF Rx Instructions: As directed (DME) Omnipod Dash Pods (Gen 4) Cartridge See Rx Instructions .Route Qty: 30 3RF Rx Instructions: As directed levothyroxine [Synthroid] 200 mcg tablet 200 mcg PO DAILY Qty: 30 2RF triamcinolone acetonide 0.1 % ointment 1 applic topical TID Qty: 30 0RF Rx Instructions: large area lower legs enalapril maleate 10 mg tablet 10 mg PO DAILY Qty: 30 5RF furosemide [Lasix] 40 mg tablet 40 mg PO QAM PRN (Reason: edema) Qty: 30 5RF levalbuterol HCl [Xopenex] 1.25 mg/3 mL solution for nebulization 1.25 mg INHALATION Q4H PRN (Reason: shortness of breath or wheezing) 30 Days Qty: 300 2RF liothyronine 5 mcg tablet 10 mcg PO DAILY Qty: 180 3RF Rx Instructions: Take two tablets by mouth daily at noon. (DME) Omnipod 5 G6 Pods (Gen 5) Cartridge See Rx Instructions .Route Qty: 30 3RF Rx Instructions: Change every 72 hours. (DME) Omnipod 5 G6 Intro Kit (Gen 5) Cartridge See Rx Instructions .Route Qty: 1 0RF Rx Instructions: As directed Discharge Orders: Discharge ED (Routine); Ordered 09/04/21 Ordered By: Andrae Ramos Referrals: Leila Smith, ROTARY RIG ENGINE OPERATOR-C [Primary Care Provider] - Discharge Diet: Usual diet Discharge Activity: Increase activity as tolerated Patient Instructions: Musculoskeletal Pain (ED) Activity Restrictions/Additional Instructions: Activity as tolerated. Follow-up with primary care for recommendations for pain medication. Elevate foot and monitor for signs of infection. Increase activity as tolerated. Return to ER for new concerns. Coding Level of Care Code ED Paper Products Inspector for Allen Llanos
== END 2021-09-04 22:46 | disposition home or self-care (01) ==
PROVIDERS: Emergency Provider Nurse Practitioner Family; PCP Nurse Practitioner
DX: M79.672 Pain in left foot (principal); E11.9 Type 2 diabetes mellitus without complications; I10 Essential (primary) hypertension
CPT/HCPCS: 73630; 99283

== ENCOUNTER → 2021-09-06 10:27 | Outpatient (BNVA) | payer MEDICARE, SELFPAY | PROVIDERS: PCP Nurse Practitioner; Visit Provider Internal Medicine | DX: E11.65 Type 2 diabetes mellitus with hyperglycemia (principal); G47.33 Obstructive sleep apnea (adult) (pediatric); E06.3 Autoimmune thyroiditis; Z79.4 Long term (current) use of insulin | CPT/HCPCS: 99214 ==

== ENCOUNTER → 2021-09-25 12:31 | Outpatient (BNVA) | payer MEDICARE, SELFPAY | PROVIDERS: PCP Nurse Practitioner; Visit Provider Internal Medicine | DX: E11.65 Type 2 diabetes mellitus with hyperglycemia (principal); E06.3 Autoimmune thyroiditis; G47.33 Obstructive sleep apnea (adult) (pediatric); Z79.4 Long term (current) use of insulin | CPT/HCPCS: 99214 ==

== ENCOUNTER → 2021-10-09 10:08 | Outpatient (BNVA) | payer MEDICARE, SELFPAY | PROVIDERS: PCP Nurse Practitioner; Visit Provider Internal Medicine | DX: E06.3 Autoimmune thyroiditis (principal); M35.00 Sjogren syndrome, unspecified; I10 Essential (primary) hypertension; G47.33 Obstructive sleep apnea (adult) (pediatric); Z79.4 Long term (current) use of insulin; E11.65 Type 2 diabetes mellitus with hyperglycemia | CPT/HCPCS: 99214 ==

== ENCOUNTER 2021-10-24 20:51 | Emergency (ER) | payer MEDICARE, SELFPAY ==
[2021-10-24 21:21] VITALS: BP 140/67; PULSE 79; RESP 18; TEMP 36.8; O2SAT 96; BMI 44.2
--- NOTE | 2021-10-24 21:46 | ED_ITS ---
HPI - URI/Sore Throat General: Chief Complaint: Upper Respiratory Infection Stated Complaint: Sore throat/earache Time Seen by Provider: 10/24/21 21:34 Source: patient Mode of arrival: ambulatory Limitations: no limitations History of Present Illness: Patient is a 76-year-old female presents to ED today with a complaint of ear pressure, head pressure, nasal congestion/rhinorrhea, and sore throat. Patient states she has a history of sinusitis. She states her symptoms started yesterday. She not having any cough, shortness of breath, or difficulty breathing. No fevers. MD elicited complaint: sore throat, rhinorrhea, nasal congestion and sinus pain Onset (ago): day(s) Consistency: constant Severity: moderate Description of mucous: clear Able to tolerate fluids by mouth: Yes Exacerbating factors: changing head position (lying flat) Relieving factors: nothing Associated symptoms: Reports chills, ear or mastoid pain, nasal congestion and sinus pain; Deny abdominal pain, chest pain, diarrhea, fever(s), headache(s), nausea or vomiting Treatments prior to arrival: none Review of Systems Const: Reports: chills; Denies: fever(s), body aches, fatigue or malaise Eyes: Denies: change in vision, blurry vision or photophobia ENMT: Reports: throat pain, odynophagia, ear or mastoid pain, nasal discharge, nasal congestion, post nasal drip and sinus pain; Denies: ear discharge, change in hearing, tinnitus or disequilibrium Card: Denies: chest pain Resp: Denies: dyspnea, productive cough, non-productive cough, wheezing, pain on inspiration, hemoptysis or chest congestion GI: Denies: abdominal pain, nausea, vomiting or diarrhea Musc: Denies: neck pain Skin/Breast: Denies: rash Neuro: Denies: headache(s) or dizziness PFS ED PFSH: Medical History AB (asthmatic bronchitis) Chronic bilateral thoracic back pain Delusional disorder Diabetes mellitus with hyperglycemia, with long-term current use of insulin Essential (primary) hypertension Grief Cyrus's thyroiditis (~06/2020) Lumbar disc disease with radiculopathy Multiple personality disorder Psychiatric care Sjogren's disease Surgical History History of lumpectomy of right breast History of total bilateral knee replacement Hx of cholecystectomy Hx of vaginal hysterectomy Family History Unknown Adopted [place] in [place] Social History Smoking and tobacco status: never smoked Second hand smoke exposure: No Smoking risk assessment/counseling performed?: No Alcohol intake: never Desire information about alcohol rehabilitation?: No Counseling given: No Desire information about substance/drug rehabilitation?: No Counseling given: No Adopted: Yes Caregiver/support person: No Lives independently: Yes Marital status: / Number of children: 1 service: No Current occupational status: unemployed and retired History of recent travel: No Current gender identity: Female Physical Exam Const: COMMON NORMALS: no acute distress, patient oriented x3, no limitations and alert NUTRITIONAL APPEARANCE: obese morbidly obese ORIENTATION/CONSCIOUSNESS: Yes awake, Yes oriented to person, Yes oriented to place and Yes oriented to time HENMT: COMMON NORMALS: normocephalic, atraumatic, hearing grossly normal bilaterally, external ears normal, EAC's normal, TM's normal bilaterally, Normal external nose present, Normal nasal mucous membranes and turbinates present, oropharynx normal and gingiva normal HEAD & SCALP: normal to inspection, normocephalic and atraumatic FACE & SINUS: normal facial exam and sinus tenderness maxillary NOSE: Normal external nose present and Normal nasal mucous membranes and turbinates present EXTERNAL EAR: Yes external ears normal EXTERNAL AUDITORY CANAL: EAC's normal TYMPANIC MEMBRANE: TM's normal bilaterally MOUTH: Normal oral and palatal mucosa present, lip normal and tongue normal THROAT: posterior oropharynx normal, tonsils normal and uvula midline Eye: GENERAL EYE: appearance normal, both eyes and all related structures Neck/C-Spine: COMMON NORMALS: full ROM, no lymphadenopathy and no meningeal signs Resp: COMMON NORMALS: normal respiratory effort and clear to auscultation bilaterally AUSCULTATION: clear to auscultation bilaterally Cardio: COMMON NORMALS: regular rate and regular rhythm RATE: regular rate RHYTHM: regular rhythm Neuro: JOSE GUADALUPE COMA SCALE: document GCS findings Jose Guadalupe coma scale eye opening: Spontaneous [place] coma scale verbal response: Orientated [place] coma scale motor response: Obey commands [place] coma scale total score: 15 COMMON NORMALS: patient oriented x3 and CN's II-XII intact bilaterally SENSORIUM/ORIENTATION: Yes alert, Yes oriented to person, Yes oriented to place and Yes oriented to time MENINGEAL SIGNS: Yes no meningeal signs Skin: COMMON NORMALS: no rashes or lesions noted GENERAL SKIN EXAM: no rashes or lesions noted Course Vital Signs: Vital signs: Vital Signs Temperature 98.3 F 10/24/21 21:21 Pulse Rate 79 10/24/21 21:21 Respiratory Rate 18 10/24/21 21:21 Blood Pressure 140/67 10/24/21 21:21 Pulse Oximetry 96 10/24/21 21:21 MDM - URI/Sore Throat Medical Decision Making Recommend PCP follow up in 3-5 days for non-improvement. Discharge Plan Discharge Patient Disposition: Home Clinical Impression: Upper respiratory infection Qualifiers: URI type: unspecified viral URI Qualified Code(s): J06.9 - Acute upper respiratory infection, unspecified Condition: Stable Prescriptions: New levofloxacin 500 mg tablet 500 mg PO DAILY 5 Days Qty: 5 0RF benzonatate 100 mg capsule 100 mg PO TID PRN (Reason: cough) Qty: 20 0RF No Action (DME) Fast form thumb spica See Rx Instructions .Route .MEDSUPPLY Qty: 1 0RF Rx Instructions: As directed (DME) Omnipod Dash Pods (Gen 4) Cartridge See Rx Instructions .Route Qty: 30 3RF Rx Instructions: As directed triamcinolone acetonide 0.1 % ointment 1 applic topical TID Qty: 30 0RF Rx Instructions: large area lower legs enalapril maleate 10 mg tablet 10 mg PO DAILY Qty: 30 5RF furosemide [Lasix] 40 mg tablet 40 mg PO QAM PRN (Reason: edema) Qty: 30 5RF levalbuterol HCl [Xopenex] 1.25 mg/3 mL solution for nebulization 1.25 mg INHALATION Q4H PRN (Reason: shortness of breath or wheezing) 30 Days Qty: 300 2RF insulin glargine [Lantus U-100 Insulin] 100 unit/mL solution 50 unit SUBCUT DAILY 30 Days Qty: 15 0RF (DME) Omnipod 5 G6 Intro Kit (Gen 5) Cartridge See Rx Instructions .Route Qty: 1 0RF Rx Instructions: As directed insulin lispro [Humalog U-100 Insulin] 100 unit/mL solution See Rx Instructions continuous subcutaneous infusion TID Qty: 10 3RF Rx Instructions: 150 max dose/day via pump. continuous subcutaneous infusion three times daily; change pod every 24-30 hours (DME) Omnipod 5 G6 Pods (Gen 5) Cartridge See Rx Instructions .Route Qty: 30 3RF Rx Instructions: Change every 24 hours. levothyroxine [Synthroid] 200 mcg tablet 200 mcg PO DAILY Qty: 90 3RF liothyronine 5 mcg tablet 10 mcg PO DAILY Qty: 180 3RF Rx Instructions: Take two tablets by mouth daily at noon. Discharge Orders: Discharge ED (Routine); Ordered 10/24/21 Ordered By: Ella Thakur Referrals: Leila Smith, AIRCRAFT ELECTRONICS TECHNICAL OFFICER-C [Primary Care Provider] - Coding Level of Care Code ED Body Technician for Allen Llanos
== END 2021-10-24 23:38 | disposition home or self-care (01) ==
PROVIDERS: Emergency Provider Physician Assistant; PCP Nurse Practitioner
DX: J06.9 Acute upper respiratory infection, unspecified (principal); Z79.4 Long term (current) use of insulin; E11.9 Type 2 diabetes mellitus without complications; I10 Essential (primary) hypertension
CPT/HCPCS: 99283

== ENCOUNTER → 2021-10-30 10:33 | Outpatient (BNVA) | payer MEDICARE, SELFPAY | PROVIDERS: PCP Nurse Practitioner; Visit Provider Nurse Practitioner Family | DX: J22 Unspecified acute lower respiratory infection (principal) | CPT/HCPCS: 71046; 85025 ==

== ENCOUNTER → 2021-12-11 10:17 | Outpatient (BNVA) | payer MEDICARE, SELFPAY | PROVIDERS: PCP Nurse Practitioner; Visit Provider Internal Medicine | DX: E06.3 Autoimmune thyroiditis (principal) | CPT/HCPCS: 84439; 84443 ==

== ENCOUNTER 2021-12-26 12:21 | Outpatient (CLI) | payer MEDICARE, SELFPAY ==
--- NOTE | 2021-12-26 12:50 | CT_ITS ---
WS: [id number] CT NECK TECHNIQUE: Noncontrast CT of the neck with coronal and sagittal reformatted images. CLINICAL INFORMATION: ACUTE UPPER RESP INFECTION, CHRONIC MAXILLARY SINUSITIS COMPARISON: CT neck 9 24,018 DLP: 327.[address] scans at [facility] use at least one of these dose optimization techniques: automated e xposure control; mA and/or kV adjustment per patient size (includes targeted exams where dose is matc hed to clinical indication); or iterative reconstruction. FINDINGS: Partially visualized paranasal sinuses are well aerated. Mastoid air cells are well aerated. Lung api javed are well aerated. Dental artifact degrades images at the tongue base. Normal parapharyngeal fat. Parotid glands are normal. Normal submandibular glands. Tiny calcification/calculus RIGHT submandibul ar gland. No evidence of supraglottic or glottic mass. Normal subglottic airway. Partially visualized thyroid g land appears normal. Advanced anterior hypertrophic changes cervical and thoracic spine. No cervical lymphadenopathy. Partially visualized intracranial contents appear normal. CT/CT neck [place] con [id number] IMPRESSION: 1. No evidence of supraglottic or glottic mass. 2. Normal posterior nasopharynx. Normal parapharyngeal fat. 3. Normal salivary glands. 4. No cervical lymphadenopathy. 5. Partially visualized paranasal sinuses are well aerated. Frontal sinuses no t included on this examination. Mastoid air cells are well aerated. 6. Advanced anterior hypertrophic changes cervical and thoracic spine.
== END 2021-12-26 12:22 | disposition home or self-care (01) ==
PROVIDERS: PCP Nurse Practitioner; Visit Provider Specialist
DX: J06.9 Acute upper respiratory infection, unspecified (principal); J32.0 Chronic maxillary sinusitis
CPT/HCPCS: 70490

== ENCOUNTER → 2022-01-28 11:04 | Outpatient (BNVA) | payer MEDICARE, SELFPAY | PROVIDERS: PCP Nurse Practitioner; Visit Provider Internal Medicine | DX: E11.65 Type 2 diabetes mellitus with hyperglycemia (principal); E06.3 Autoimmune thyroiditis; G47.33 Obstructive sleep apnea (adult) (pediatric); Z79.4 Long term (current) use of insulin | CPT/HCPCS: 99214 ==

== ENCOUNTER → 2022-02-25 09:33 | Outpatient (BNVA) | payer MEDICARE, SELFPAY | PROVIDERS: PCP Nurse Practitioner; Visit Provider Specialist | DX: F44.81 Dissociative identity disorder (principal); G31.84 Mild cognitive impairment of uncertain or unknown etiology; M48.062 Spinal stenosis, lumbar region with neurogenic claudication; F43.10 Post-traumatic stress disorder, unspecified | CPT/HCPCS: 99213 ==

== ENCOUNTER → 2022-03-25 11:12 | Outpatient (BNVA) | payer MEDICARE, SELFPAY | PROVIDERS: PCP Nurse Practitioner; Visit Provider Podiatrist Foot & Ankle Surgery | DX: S91.202A Unspecified open wound of left great toe with damage to nail, initial encounter (principal); X58.XXXA Exposure to other specified factors, initial encounter; R56.9 Unspecified convulsions | CPT/HCPCS: 95812; 95816; 99213 ==

== ENCOUNTER → 2022-04-02 10:59 | Outpatient (BNVA) | payer MEDICARE, SELFPAY | PROVIDERS: PCP Nurse Practitioner; Visit Provider Nurse Practitioner Family | DX: Z20.822 Contact with and (suspected) exposure to COVID-19 (principal); R56.9 Unspecified convulsions; R51.9 Headache, unspecified; Z86.73 Personal history of transient ischemic attack (TIA), and cerebral infarction without residual deficits; F22 Delusional disorders; F25.9 Schizoaffective disorder, unspecified | CPT/HCPCS: 87426 ==

== ENCOUNTER 2022-04-06 10:47 | Emergency (ER) | payer MEDICARE, SELFPAY ==
[2022-04-06 10:58] VITALS: BP 149/70; PULSE 87; RESP 19; TEMP 36.9; O2SAT 96; BMI 45.3
--- NOTE | 2022-04-06 11:02 | XRR_ITS ---
PROCEDURE INFORMATION: Exam: XR Chest Exam date and time: 04/06/2022 11:09 AM Age: 76 years old Clinical indication: Shortness of breath; Additional info: SOB TECHNIQUE: Imaging protocol: Radiologic exam of the chest. Views: 1 view. COMPARISON: CR XR chest 2V* [id number] 10/30/2021 10:33 AM FINDINGS: Lungs: Unremarkable. No consolidation. Pleural spaces: No pleural effusions. No pneumothorax. Heart/Mediastinum: Cardiac silhouette appears borderline enlarged on this portable chest, unchanged. There is persistent right cardiophrenic angle opacity unchanged believed to represent incidental up cardial fat pad. Bones/joints: Unremarkable for age. XR/XR chest 1V portable [id number] IMPRESSION: Stable chest. No active disease.
--- NOTE | 2022-04-06 11:03 | W.ED.SOB ---
HPI - SOB/Dyspnea General: Chief Complaint: Shortness of Breath/Dyspnea Stated Complaint: SOB,congestion Time Seen by Provider: 04/06/22 10:59 Source: patient Mode of arrival: ambulatory Limitations: no limitations History of Present Illness: HPI Narrative: 76-year-old female states over the last 4 days she has been having nasal congestion for like she getting sinus infection as she has had some cough with slight dyspnea. States she does wear CPAP at night but has not worn it the last 4 days because she has not had any power. She denies any chest pain denies any fever she denies any worsening proving factors she is in no distress here. Associated symptoms: Deny abdominal pain, chest pain, fever(s), nausea or vomiting Review of Systems Const: Denies: fever(s), chills, body aches or change in appetite Eyes: Denies: blurry vision or eye discomfort ENMT: Reports: nasal congestion Card: Denies: chest pain Resp: Reports: dyspnea GI: Denies: abdominal pain, nausea, vomiting or diarrhea : Denies: dysuria Musc: Denies: neck pain or back pain Skin/Breast: Denies: rash Neuro: Denies: headache(s) Psych: Denies: depression Laci/Lymph: Denies: easy bruising All/Imm: Denies: urticaria PFSH ED PFSH: Medical History AB (asthmatic bronchitis) Chronic bilateral thoracic back pain Delusional disorder Diabetes mellitus with hyperglycemia, with long-term current use of insulin Essential (primary) hypertension Grief Cyrus's thyroiditis (~06/2020) Lumbar disc disease with radiculopathy Multiple personality disorder Psychiatric care Sjogren's disease Surgical History History of lumpectomy of right breast History of total bilateral knee replacement Hx of cholecystectomy Hx of vaginal hysterectomy Family History Unknown Adopted [place] in [place] Social History Smoking and tobacco status: never smoked Second hand smoke exposure: No Smoking risk assessment/counseling performed?: No Alcohol intake: never Desire information about alcohol rehabilitation?: No Counseling given: No Desire information about substance/drug rehabilitation?: No Counseling given: No Adopted: Yes Caregiver/support person: No Lives independently: Yes Marital status: / Number of children: 1 service: No Current occupational status: unemployed and retired History of recent travel: No Current gender identity: Female Physical Exam Const: COMMON NORMALS: no acute distress, patient oriented x3 and healthy appearing HENMT: COMMON NORMALS: normocephalic and atraumatic HEAD & SCALP: normocephalic and atraumatic Eye: COMMON NORMALS: Equal, round and reactive pupils present and EOMs intact bilaterally PUPIL: Yes Equal, round and reactive pupils present Neck/C-Spine: COMMON NORMALS: full ROM and supple Chest: COMMONS NORMALS: normal inspection of the chest and normal palpation of entire chest wall Resp: COMMON NORMALS: normal respiratory effort, No retractions, No use of accessory muscles and clear to auscultation bilaterally AUSCULTATION: clear to auscultation bilaterally Cardio: COMMON NORMALS: regular rate, regular rhythm and No murmurs present (Cardio) RATE: regular rate RHYTHM: regular rhythm GI: COMMON NORMALS: Normal to inspection, nondistended, normoactive bowel sounds present, Soft to palpation, non-tender and no masses PALPATION: Yes Soft to palpation Extremity: COMMON NORMALS: normal to inspection and full ROM Neuro: COMMON NORMALS: patient oriented x3, moves all extremities and no focal motor deficits Psych: COMMON NORMALS: mental status grossly normal, Normal thought process present and cooperative THOUGHT PROCESS: Normal thought process present Skin: COMMON NORMALS: no rashes or lesions noted and no wounds GENERAL SKIN EXAM: no rashes or lesions noted Course Vital Signs: Vital signs: Vital Signs Temperature 98.4 F 04/06/22 10:58 Pulse Rate 82 04/06/22 12:36 Respiratory Rate 16 04/06/22 12:36 Blood Pressure 149/70 04/06/22 10:58 Pulse Oximetry 96 04/06/22 12:36 Oxygen Delivery Me thod 04/06/22 12:31 MDM - SOB/Dyspnea Medical Decision Making Patient presents here with nasal congestion and some sinus pain slight cough likely sinusitis we will place her on doxycycline she is stable for discharge blood work x-ray here normal she is to follow-up with PCP and return if worsening. Lab Data 04/06/22 11:59 04/06/22 11:59 Labs/Radiology: Radiology Impressions Chest X-Ray 04/06/22 11:02 IMPRESSION: Stable chest. No active disease. Laboratory Results WBC 8.3 10^3/uL (4.0-10.0) 04/06/22 11:59 RBC 4.69 10^6/uL (4.1-5.3) 04/06/22 11:59 Hgb 13.9 g/dL (11.5-15.3) 04/06/22 11:59 Hct 42.7 % (37.0-47.0) 04/06/22 11:59 MCV 91.0 fl (81-99) 04/06/22 11:59 MCH 29.6 pg (28.0-34.0) 04/06/22 11:59 MCHC 32.6 g/dL (30.0-36.0) 04/06/22 11:59 RDW 13.2 % (12.1-15.1) 04/06/22 11:59 Plt Count 198 10^3/cmm (130-400) 04/06/22 11:59 MPV 10.5 fL (7.4-10.4) H 04/06/22 11:59 Neut % (Auto) 61.3 % 04/06/22 11:59 Lymph % (Auto) 26.1 % 04/06/22 11:59 [place] % (Auto) 8.0 % 04/06/22 11:59 Eos % (Auto) 3.4 % 04/06/22 11:59 Baso % (Auto) 1.0 % 04/06/22 11:59 Neut # (Auto) 5.09 10^3/uL (1.8-7.7) 04/06/22 11:59 Lymph # (Auto) 2.2 10^3/uL (0.8-4.8) 04/06/22 11:59 [place] # (Auto) 0.7 10^3/uL (0.2-0.9) 04/06/22 11:59 Eos # (Auto) 0.3 10^3/uL (0.0-0.8) 04/06/22 11:59 Baso # (Auto) 0.1 10^3/uL (0.0-0.1) 04/06/22 11:59 Nucleated RBC % (auto) 0 % 04/06/22 11:59 Nucleated RBCs # 0.0 /100WBC 04/06/22 11:59 Sodium 137 mmol/L (136-145) 04/06/22 11:59 Chloride 102 mmol/L (98-107) 04/06/22 11:59 Carbon Dioxide 25 mmol/L (22-29) 04/06/22 11:59 BUN 16 mg/dL (8-23) 04/06/22 11:59 Creatinine 0.7 mg/dL (0.5-0.9) 04/06/22 11:59 GFR Calculation Not Reportable 04/06/22 11:59 Calculated Osmolality 294 mOsm/kg (285-295) 04/06/22 11:59 Calcium 8.7 mg/dL (8.5-10.5) 04/06/22 11:59 Total Bilirubin 0.3 mg/dL (0.15-1.2) 04/06/22 11:59 AST 28 U/L (0-32) 04/06/22 11:59 Alkaline Phosphatase 48 U/L (35-105) 04/06/22 11:59 NT-Pro-B Natriuret Pep 150 pg/mL (0-450) 04/06/22 11:59 Total Protein 7.1 g/dL (6.6-8.7) 04/06/22 11:59 Albumin 4.2 g/dL (3.5-5.2) 04/06/22 11:59 Globulin 2.9 g/dL (1.3-4.6) 04/06/22 11:59 Discharge Plan Discharge Patient Disposition: Home Clinical Impression: Sinus infection Condition: Stable Prescriptions: New doxycycline hyclate 100 mg tablet 100 mg PO BID 7 Days Qty: 14 0RF No Action enalapril maleate 20 mg tablet 20 mg PO DAILY Qty: 90 1RF furosemide [Lasix] 40 mg tablet 40 mg PO QAM PRN (Reason: edema) Qty: 90 1RF levalbuterol HCl [Xopenex] 1.25 mg/3 mL solution for nebulization 1.25 mg INHALATION Q4H PRN (Reason: shortness of breath or wheezing) 30 Days Qty: 300 2RF Rx Instructions: She will call for refill triamcinolone acetonide 0.1 % ointment 1 applic topical BID PRN (Reason: itching skin) Qty: 80 0RF Rx Instructions: large area arms mupirocin 2 % ointment 1 applic topical BID Qty: 15 0RF (DME) Disposable nebulizer circuit See Rx Instructions .ROUTE .MEDSUPPLY Qty: 1 2RF Rx Instructions: As directed mupirocin 2 % ointment 1 applic topical BID PRN (Reason: abrasion) Qty: 22 0RF Rx Instructions: apply arms and legs (DME) Omnipod 5 G6 Intro Kit (Gen 5) Cartridge See Rx Instructions .Route Qty: 1 0RF Rx Instructions: As directed levothyroxine [Synthroid] 200 mcg tablet 200 mcg PO DAILY Qty: 90 3RF liothyronine 5 mcg tablet 10 mcg PO DAILY Qty: 180 3RF Rx Instructions: Take two tablets by mouth daily at noon. (DME) Omnipod Dash Pods (Gen 4) Cartridge See Rx Instructions .Route Qty: 30 3RF Rx Instructions: Change every 24 hours. levothyroxine [Synthroid] 25 mcg tablet 25 mcg PO DAILY Qty: 90 3RF Rx Instructions: Take 1 tablet in addition to the 200mcg tablet daily for a total of 225mcg daily insulin lispro [Humalog U-100 Insulin] 100 unit/mL solution See Rx Instructions .ROUTE .COMPLEX Qty: 60 3RF Dose Instruction: USE 150 UNITS VIA PUMP CONTINOUS THREE TIMES DAILY Rx Instructions: USE 150 UNITS VIA PUMP CONTINOUS THREE TIMES DAILY (DME) Omnipod 5 G6 Pods (Gen 5) Cartridge See Rx Instructions .Route Qty: 90 3RF Rx Instructions: Change every 24 hours. Discharge Orders: Discharge ED (Routine); Ordered 04/06/22 Ordered By: aDrby Santo Referrals: Leila Smith, INVESTOR RELATIONS MANAGER-C [Primary Care Provider] - Discharge Diet: Advance as tolerated Discharge Activity: Resume usual activity Patient Instructions: Sinusitis (ED) Coding Level of Care Code ED Aircraft Instrument Tester for Chg Fwd Exam Comprehensive
--- NOTE | 2022-04-06 11:18 | ECG_ITS ---
[facility] Test Date: 2022-04-06 Pat Name: Alisha Hernandez Department: Room: Gender: Female Fish Rod Maker: : 1945 Requested By: Darby Santo Order Number: [id number] Micheline MD: Bola Reynolds M.D. Measurements Intervals [place] Rate: 88 P: 29 ID: [id number] QRS: 39 QRSD: 85 T: 81 QT: 357 QTc: 434 Interpretive Statements SINUS RHYTHM Compared to ECG 06/27/2017 20:40:44 T-wave abnormality no longer present Electronically Signed On 04-07-2022 11:23:37 SEED SERVICE ADVISOR by Bola Reynolds M.D. [email or web address] [email or web address] [id number]
[2022-04-06 12:06] LABS: Basophils # 0.1 10^3/uL (0.0-0.1); Eosinophils # 0.3 10^3/uL (0.0-0.8); Eosinophils % 3.4 %; Hematocrit 42.7 % (37.0-47.0); Hemoglobin 13.9 g/dL (11.5-15.3); Lymphocytes # 2.2 10^3/uL (0.8-4.8); Lymphocytes % 26.1 %; Mean Corpuscular HGB Conc 32.6 g/dL (30.0-36.0); Mean Corpuscular Hemoglobin 29.6 pg (28.0-34.0); Mean Platelet Volume 10.5 fL (7.4-10.4); Monocytes # 0.7 10^3/uL (0.2-0.9); Neutrophils # 5.09 10^3/uL (1.8-7.7); Neutrophils % 61.3 %; Nucleated Red Blood Cells % 0 %; Platelet Count 198 10^3/cmm (130-400); Red Blood Count 4.69 10^6/uL (4.1-5.3); Red Cell Distribution Width 13.2 % (12.1-15.1); White Blood Count 8.3 10^3/uL (4.0-10.0)
[2022-04-06] MEDS: levalbuterol 1.25 mg/3 mL Neb INHALATION (12:28)
[2022-04-06 12:31] VITALS: PULSE 82; RESP 16; O2SAT 96
[2022-04-06 12:36] VITALS: PULSE 82; RESP 16; O2SAT 96
[2022-04-06 12:41] LABS: Alanine Aminotransferase 35 U/L (0-33); Albumin Level 4.2 g/dL (3.5-5.2); Alkaline Phosphatase 48 U/L (35-105); Aspartate Amino Transferase 28 U/L (0-32); Blood Urea Nitrogen 16 mg/dL (8-23); Calcium 8.7 mg/dL (8.5-10.5); Carbon Dioxide 25 mmol/L (22-29); Chloride 102 mmol/L (98-107); Globulin 2.9 g/dL (1.3-4.6); Glucose 258 mg/dL (65-115); NT Pro B Type Natriuretic Pept 150 pg/mL (0-450); Osmolality Calculated 294 mOsm/kg (285-295); Sodium 137 mmol/L (136-145); Total Bilirubin 0.3 mg/dL (0.15-1.2); Total Protein 7.1 g/dL (6.6-8.7)
[2022-04-06 13:10] LABS: Anion Gap 14.5 (5-19); Potassium 4.5 mmol/L (3.5-5.1)
== END 2022-04-06 12:58 | disposition home or self-care (01) ==
PROVIDERS: Emergency Provider Emergency Medicine; PCP Nurse Practitioner
DX: J32.9 Chronic sinusitis, unspecified (principal); Z79.4 Long term (current) use of insulin; E11.9 Type 2 diabetes mellitus without complications; I10 Essential (primary) hypertension
CPT/HCPCS: 71045; 80053; 83880; 85025; 93005; 94640; 99285; J7614

== ENCOUNTER → 2022-04-29 11:24 | Outpatient (BNVA) | payer MEDICARE, SELFPAY | PROVIDERS: PCP Nurse Practitioner; Visit Provider Nurse Practitioner | DX: E11.65 Type 2 diabetes mellitus with hyperglycemia (principal); Z79.4 Long term (current) use of insulin; E06.3 Autoimmune thyroiditis; M35.00 Sjogren syndrome, unspecified | CPT/HCPCS: 80053; 80061; 83036; 84439; 84443 ==

== ENCOUNTER → 2022-04-30 08:55 | Outpatient (BNVA) | payer MEDICARE, SELFPAY | PROVIDERS: PCP Nurse Practitioner; Visit Provider Internal Medicine | DX: E11.65 Type 2 diabetes mellitus with hyperglycemia (principal); Z79.4 Long term (current) use of insulin; E06.3 Autoimmune thyroiditis; G47.33 Obstructive sleep apnea (adult) (pediatric) | CPT/HCPCS: 99214 ==

== ENCOUNTER → 2022-05-20 08:50 | Outpatient (BNVA) | payer MEDICARE, SELFPAY | PROVIDERS: PCP Nurse Practitioner; Visit Provider Internal Medicine | DX: E11.65 Type 2 diabetes mellitus with hyperglycemia (principal); Z79.4 Long term (current) use of insulin; E06.3 Autoimmune thyroiditis | CPT/HCPCS: 80053; 80061; 82043; 83036; 84439; 84443; 84480 ==

== ENCOUNTER → 2022-07-22 07:56 | Outpatient (BNVA) | payer MEDICARE, SELFPAY | PROVIDERS: PCP Nurse Practitioner; Visit Provider Family Medicine | DX: E11.65 Type 2 diabetes mellitus with hyperglycemia (principal); Z79.4 Long term (current) use of insulin; E06.3 Autoimmune thyroiditis | CPT/HCPCS: 80053; 80061; 83036; 84439; 84443; 84480 ==

== ENCOUNTER 2022-07-24 20:00 | Outpatient (CLI) | payer MEDICARE, SELFPAY | END 2022-07-24 20:01 | disposition home or self-care (01) | LOC: SLEEP 07-25 05:29 | PROVIDERS: PCP Nurse Practitioner; Visit Provider Specialist | DX: G47.33 Obstructive sleep apnea (adult) (pediatric) (principal) | CPT/HCPCS: 95811 ==

== ENCOUNTER → 2022-08-08 13:07 | Outpatient (BNVA) | payer MEDICARE, SELFPAY | PROVIDERS: PCP Family Medicine; Visit Provider Internal Medicine | DX: R07.9 Chest pain, unspecified (principal) | CPT/HCPCS: 93005; 99204 ==

== ENCOUNTER → 2022-08-23 08:43 | Outpatient (BNVA) | payer MEDICARE, SELFPAY | PROVIDERS: PCP Family Medicine; Visit Provider Internal Medicine | DX: E11.65 Type 2 diabetes mellitus with hyperglycemia (principal); E06.3 Autoimmune thyroiditis; G47.33 Obstructive sleep apnea (adult) (pediatric); Z79.4 Long term (current) use of insulin; Z79.890 Hormone replacement therapy | CPT/HCPCS: 99214 ==

== ENCOUNTER 2022-08-26 11:52 | Outpatient (CLI) | payer MEDICARE, SELFPAY ==
--- NOTE | 2022-08-26 12:09 | MM_ITS ---
WS: [id number] DIAGNOSTIC BILATERAL DIGITAL BREAST TOMOSYNTHESIS MAMMOGRAPHY WITH CAD HISTORY: HX BR CA COMPARISON: 09/23/2019, 08/11/2018 TECHNIQUE: Bilateral craniocaudad, mediolateral oblique, and mediolateral views are submitted with to mosirvin and SM. Computer aided detection utilized. Breast composition: There are scattered areas of fibroglandular density. Postsurgical changes and vol ume loss in the RIGHT breast. Lumpectomy site upper outer quadrant. The entire lumpectomy site is not included due to patient's clinical condition. Patient was not very cooperative for this examination and refused additional imaging attempts. MM/[place] [id number] IMPRESSION: BI-RADS: 2-Benign FOLLOW UP: 1 Year Follow-up
== END 2022-08-26 11:53 | disposition home or self-care (01) ==
LOC: RAD 11:55
PROVIDERS: PCP Family Medicine; Visit Provider Family Medicine
DX: Z85.3 Personal history of malignant neoplasm of breast (principal); Z98.890 Other specified postprocedural states; F44.5 Conversion disorder with seizures or convulsions; F41.1 Generalized anxiety disorder; F44.81 Dissociative identity disorder
CPT/HCPCS: 77062; 99214; G0279

== ENCOUNTER 2022-08-27 10:03 | Outpatient (CLI) | payer MEDICARE, SELFPAY ==
--- NOTE | 2022-08-27 | ECG_ITS ---
[facility] Test Date: 2022-08-27 Pat Name: Alisha Hernandez Department: Room: Gender: Female Principal Architect: : 1945 Requested By: Bola Reynolds Order Number: [id number] Micheline MD: Bola Reynolds M.D. Interpretive Statements NAME OF STUDY: LEXISCAN SESTAMIBI STRESS TEST INDICATION: [Chest Pain; Shortness of Breath, ] Procedure: At the baseline, the blood pressure was 134/80 mmHg with a heart rate of 73 bpm. The electrocardiogram showed normal sinus rhythm, normal axis with normal ST and T's. The Lexiscan was infused over a period of 20 seconds. A total of 0.4 mg of Lexiscan was infused. The stress phase was continued for a total of 5 minutes. Heart rate was at the end of stress phase was 89 bpm and a blood pressure of 140/74 mmHg. The EKG at the peak infusion revealed normal sinus rhythm with no significant ST-T wave changes. Sestamibi was injected 20 seconds after the Lexiscan infusion. Blood pressure at the end of recovery phase was 123/74 mmHg with a heart rate of 91 bpm. Conclusion: 1. Normal EKG response to Lexiscan infusion 2. No Lexiscan induced chest pain or cardiac arrhythmia. 3. Normal blood pressure and heart rate response. 4. Sestamibi/sestamibi perfusion scan pending; see separate report. Electronically Signed On 08-27-2022 17:50:19 CDT by Bola Reynolds M.D. [id number]
[2022-08-27 10:23] VITALS: BMI 46.4
--- NOTE | 2022-08-27 10:26 | NMCV_ITS ---
NM dominik perf SPECT r/s* [id number] Alisha Hernandez Age: 77 Gender: F : 1945 Exam Date: 08/27/2022 11:04 Ordering Phys: Bola Reynolds M.D ([email or web address]) Technologist: YADI Cotto Exam Location: [facility] Indications: SOB STRESS TEST [facility] IMAGE PROTOCOL Rest/Stress 1 Lexiscan Day Radiopharmaceutical Dose (mCi) Administration Site Administered by Rest: Tc-99m 10.8 IV YADI Cotto Sestamibi Stress:Tc-99m 32.8 IV Milan Gavin, YADI Sestamibi Rest: 27-Aug-2022 60 Discovery 630 Stress: 27-Aug-2022 30 Discovery 630 0.4mg Lexiscan. Supine position only as patient was unable to lay prone. SPECT RESULTS Technical Quality: Excellent Raw Data Analysis: Adequate, Breast attenuation Image Corrections: No attenuation or motion correction applied Summed Stress Score: 0 Summed Rest Score: 0 Summed Difference Score: 0 PERFUSION FINDINGS SPECT images demonstrate homogeneous tracer distribution throughout the myocardium. FUNCTIONAL RESULTS (calculated via Gated SPECT) Stress Image LV EF (%): 75 Stress EDV (mL):73 TID: 1.11 Stress ESV (mL):18 FUNCTIONAL FINDINGS: There is normal left ventricular systolic function. IMPRESSIONS 1. Normal myocardial perfusion imaging with no evidence of ischemia 2. LV systolic function is normal Bola Reynolds MD (Electronically Signed) Final Date: 27 August 2022 13:17 S
[2022-08-27] MEDS: regadenoson 0.4 Mg/5 ml Syringe IVP (11:49)
[2022-08-27 12:14] VITALS: BP 123/74; PULSE 89
== END 2022-08-27 10:04 | disposition home or self-care (01) ==
LOC: CDL 10:03
PROVIDERS: PCP Family Medicine; Visit Provider Internal Medicine
DX: R07.9 Chest pain, unspecified (principal); R06.02 Shortness of breath
CPT/HCPCS: 36415; 78452; 93017; 96374; A9500; J2785

== ENCOUNTER 2022-08-30 10:42 | Outpatient (CLI) | payer MEDICARE, SELFPAY ==
--- NOTE | 2022-08-30 11:15 | USCV_ITS ---
Alisha Hernandez Age: 77 Gender: F : 1945 Exam Date: 08/30/2022 11:09 Ordering Phys: Bola Reynolds M.D ([email or web address]) Technologist: CT [place] [facility] [place]: sob BP: 170 / 62 HR: 74 Rhythm: Sinus Technical Quality: Technically difficult study MEASUREMENTS (Male / Female) Normal Values 2D ECHO LVOT Diameter 2.2 cm LV Ejection Fraction MOD 2C 59.7 % LV Ejection Fraction 2C AL 58.4 % LA Diameter 3.7 cm Aorta at Sinotubular Diameter 2.8 cm M-MODE Aortic Annulus Diameter 2.4 cm LA Ao Ratio MM 1.6 MV E Point Septal Separation 1.1 cm DOPPLER AV Peak Velocity 155.0 cm/s LVOT Peak Velocity 107.0 cm/s AV Area Cont Eq vti 2.6 cm squared AV Area Cont Eq pk 2.5 cm squared MV Area PHT 5.0 cm squared Mitral E to A Ratio 0.8 MV E' Velocity 95.0 cm/s TR Peak Velocity 135.7 cm/s TR Peak Gradient 7.4 mmHg TV Peak E Velocity 61.0 cm/s Right Atrial Pressure 3.0 mmHg Pulmonary Artery Systolic Pressu 10.4 mmHg RV Acceleration Time 0.1 s FINDINGS Left Ventricle Left ventricle is normal in size. LV systolic function is normal with EF 55 to 60%. No regional wall motion abnormalities are seen. Grade 1 diastolic dysfunction Right Ventricle Grossly normal Right Atrium Not well visualized Left Atrium Not well visualized Mitral Valve Not well visualized Aortic Valve Not well visualized Tricuspid Valve Mild tricuspid regurgitation. Insufficient TR jet to evaluate RVSP Pulmonic Valve Not well-visualized Pericardium Grossly normal Aorta Normal in size IVC Not well-visualized. CONCLUSIONS Technically very limited quality echocardiogram because of poor ultrasonic windows. LV systolic function is normal with EF of 55 to 60%. Grade 1 diastolic dysfunction Mild tricuspid regurgitation Valvular structures are not well-visualized. Accurate comparison with prior echocardiograms not possible because of poor ultrasonic windows. Bola Reynolds MD (Electronically Signed) Final Date: 08 September 2022 12:27 S
[2022-08-30] MEDS: perflutren protein-a microsphr 0.22 mg/mL SDV 3 mL IV (13:49)
== END 2022-08-30 10:43 | disposition home or self-care (01) ==
LOC: RAD 10:43
PROVIDERS: PCP Family Medicine; Visit Provider Internal Medicine
DX: R07.9 Chest pain, unspecified (principal); R06.02 Shortness of breath; I07.1 Rheumatic tricuspid insufficiency
CPT/HCPCS: 93306; Q9956

== ENCOUNTER 2022-09-02 00:32 | Emergency (ER) | payer MEDICARE, SELFPAY ==
[2022-09-02 00:32] VITALS: BP 139/78; PULSE 91; RESP 16; TEMP 37; O2SAT 93
--- NOTE | 2022-09-02 00:36 | ECG_ITS ---
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 Measurements Intervals [place] Rate: 84 P: 62 OK: 222 QRS: 7 QRSD: 79 T: 82 QT: 352 QTc: 418 Interpretive Statements SINUS RHYTHM WITH FIRST DEGREE AV BLOCK LOW QRS VOLTAGE IN PRECORDIAL LEADS [QRS DEFLECTION < 1.0 mV IN CHEST LEADS] SEPTAL MYOCARDIAL INFARCTION , OF INDETERMINATE AGE [40+ ms Q WAVE IN V1/V2] Compared to ECG 08/08/2022 13:20:14 First degree AV block now present Low QRS voltage now present Myocardial infarct finding now present T-wave abnormality no longer present Electronically Signed On 09-02-2022 17:24:11 CDT by Bola Reynolds M.D. [id number]
--- NOTE | 2022-09-02 00:42 | XRR_ITS ---
PROCEDURE INFORMATION: Exam: XR Chest Exam date and time: 09/02/2022 12:44 AM Age: 77 years old Clinical indication: Chest pressure; Prior surgery; Surgery date: 6+ months; Surgery type: RT breast lumpectomy. Gb; Patient HX: C/O chest pain. Breast cancer. ; Additional info: Cp TECHNIQUE: Imaging protocol: Radiologic exam of the chest. Views: 1 view. COMPARISON: CR XR chest 1V portable [id number] 04/06/2022 11:09 AM FINDINGS: Lungs: Right lower lobe atelectasis versus infiltrate. Pleural spaces: Unremarkable. No pleural effusion. No pneumothorax. Heart/Mediastinum: Cardiomegaly. Bones/joints: Unremarkable. XR/XR chest 1V portable [id number] IMPRESSION: 1. Right lower lobe atelectasis versus infiltrate. 2. Cardiomegaly.
[2022-09-02 00:47] VITALS: BP 118/57; PULSE 81; RESP 19; O2SAT 96
[2022-09-02 00:56] LABS: Basophils # 0.1 10^3/uL (0.0-0.1); Basophils % 0.8 %; Eosinophils # 0.2 10^3/uL (0.0-0.8); Eosinophils % 2.5 %; Hemoglobin 13.6 g/dL (11.5-15.3); Lymphocytes # 1.8 10^3/uL (0.8-4.8); Lymphocytes % 22.6 %; Mean Corpuscular HGB Conc 33.2 g/dL (30.0-36.0); Mean Corpuscular Hemoglobin 29.4 pg (28.0-34.0); Mean Corpuscular Volume 88.7 fl (81-99); Mean Platelet Volume 10.6 fL (7.4-10.4); Monocytes # 0.9 10^3/uL (0.2-0.9); Monocytes % 10.8 %; Nucleated Red Blood Cells % 0 %; Platelet Count 185 10^3/cmm (130-400); Red Blood Count 4.62 10^6/uL (4.1-5.3); Red Cell Distribution Width 13.2 % (12.1-15.1); White Blood Count 7.9 10^3/uL (4.0-10.0)
[2022-09-02 01:13] LABS: Troponin(5th) Baseline 10 ng/L (0-10)
[2022-09-02 01:23] LABS: Alanine Aminotransferase 26 U/L (0-33); Albumin Level 3.8 g/dL (3.5-5.2); Alkaline Phosphatase 44 U/L (35-105); Anion Gap 14.5 (5-19); Aspartate Amino Transferase 19 U/L (0-32); Blood Urea Nitrogen 18 mg/dL (8-23); Calcium 8.9 mg/dL (8.5-10.5); Carbon Dioxide 25 mmol/L (22-29); Chloride 102 mmol/L (98-107); Globulin 2.8 g/dL (1.3-4.6); Glucose 127 mg/dL (65-115); NT Pro B Type Natriuretic Pept 57 pg/mL (0-450); Osmolality Calculated 289 mOsm/kg (285-295); Potassium 3.5 mmol/L (3.5-5.1); Sodium 138 mmol/L (136-145); Total Bilirubin 0.3 mg/dL (0.15-1.2); Total Protein 6.6 g/dL (6.6-8.7)
[2022-09-02 01:36] VITALS: BP 136/78; PULSE 84; RESP 16; O2SAT 97
[2022-09-02] MEDS: lidocaine 2% viscous 15 ML, aluminum-mag hydrox-simethicon 30 ML, sucralfate oral liq 1 GM PO (01:59)
[2022-09-02 02:00] VITALS: BP 151/62; PULSE 85; RESP 18; O2SAT 96
--- NOTE | 2022-09-02 02:51 | W.ED.CHESTPA ---
HPI - Chest Pain General: Chief Complaint: Chest Pain Stated Complaint: CP Time Seen by Provider: 09/02/22 01:15 Source: patient History of Present Illness: 77-year-old female with no prior history of coronary disease. She presents with chest discomfort that woke her. She was nauseated as well. Pain did not seem to radiate. Patient is short of breath, although she states she is always short of breath because she has intrinsic asthma. complaint: chest pain Onset (ago): hour(s) Timing of current episode: constant Prior episodes: Yes Onset: during rest and awoke with symptoms Pain location: substernal Quality: heaviness Relieving factors: nothing Exacerbating factors: nothing Associated symptoms: Reports dyspnea, leg edema (Chronic) and nausea; Deny abdominal pain, diaphoresis, fever(s) or vomiting Review of Systems Const: Denies: fever(s) or diaphoresis ENMT: Denies: throat pain Card: Reports: chest pain Resp: Reports: dyspnea; Denies: productive cough or non-productive cough GI: Reports: nausea; Denies: abdominal pain or vomiting : Denies: flank pain Skin/Breast: Reports: rash (Bilateral lower extremities) PFSH ED PFSH: Medical History AB (asthmatic bronchitis) Chronic bilateral thoracic back pain Delusional disorder Diabetes mellitus with hyperglycemia, with long-term current use of insulin Essential (primary) hypertension Grief Cyrus's thyroiditis (~06/2020) Lumbar disc disease with radiculopathy Multiple personality disorder Sjogren's disease Surgical History History of lumpectomy of right breast History of total bilateral knee replacement Hx of cholecystectomy Hx of vaginal hysterectomy Family History Unknown Adopted [place] in [place] Social History Smoking and tobacco status: never smoked Second hand smoke exposure: No Smoking risk assessment/counseling performed?: No Alcohol intake: never Desire information about alcohol rehabilitation?: No Counseling given: No Substance/Drug Use: never Desire information about substance/drug rehabilitation?: No Counseling given: No Adopted: Yes Caregiver/support person: No Lives independently: Yes Marital status: / Number of children: 1 service: No Current occupational status: unemployed and retired Do you think of yourself as: Straight/Heterosexual Current gender identity: Female Physical Exam Const: COMMON NORMALS: no acute distress GENERAL APPEARANCE: cooperative; not ill appearing and not frail appearing HENMT: COMMON NORMALS: normocephalic, atraumatic and Normal external nose present HEAD & SCALP: normocephalic and atraumatic FACE & SINUS: normal facial exam and face symmetric NOSE: Normal external nose present Eye: COMMON NORMALS: Equal, round and reactive pupils present and EOMs intact bilaterally PUPIL: Yes Equal, round and reactive pupils present Neck/C-Spine: GENERAL: Yes trachea midline Chest: CHEST: Yes Symmetrical chest wall rise Resp: COMMON NORMALS: normal respiratory effort, No retractions, No use of accessory muscles and clear to auscultation bilaterally AUSCULTATION: clear to auscultation bilaterally Cardio: COMMON NORMALS: regular rate and regular rhythm RATE: regular rate RHYTHM: regular rhythm GI: COMMON NORMALS: Normal to inspection, nondistended, normoactive bowel sounds present Extremity: GENERAL: Yes edema Neuro: JOSE GUADALUPE COMA SCALE: document GCS findings [place] coma scale eye opening: Spontaneous [place] coma scale verbal response: Orientated [place] coma scale motor response: Obey commands Jose Guadalupe coma scale total score: 15 SENSORY EXAM: Yes extremities (intact) Psych: COMMON NORMALS: speech normal SPEECH: Yes normal speech Skin: NARRATIVE SKIN EXAM: Stasis dermatitis bilateral lower extremity Course Vital Signs: Vital signs: Vital Signs Temperature 98.6 F 09/02/22 00:32 Pulse Rate 86 09/02/22 03:38 Respiratory Rate 18 09/02/22 03:38 Blood Pressure 149/80 09/02/22 03:38 Pulse Oximetry 97 09/02/22 03:38 Oxygen Delivery Me thod Room Air 09/02/22 03:00 MDM - Chest Pain Medical Decision Making 77-year-old female. Chest discomfort. Improved with GI cocktail. Chest x-ray shows right lower lobe atelectasis. CBC is normal. BMP is normal. BNP is normal at 57. First troponin is 10. Second is pending. EKG shows sinus rhythm with a rate of 85. [place] is normal. Intervals are normal. No acute ST changes. Patient had a normal myocardial perfusion stress on 08/27. If no change on 2-hour troponin, she will be allowed home. Outpatient follow-up. Lab Data 09/02/22 00:50 09/02/22 00:50 Radiology Impressions Chest X-Ray 09/02/22 00:42 IMPRESSION: 1. Right lower lobe atelectasis versus infiltrate. 2. Cardiomegaly. Laboratory Results WBC 7.9 10^3/uL (4.0-10.0) 09/02/22 00:50 RBC 4.62 10^6/uL (4.1-5.3) 09/02/22 00:50 Hgb 13.6 g/dL (11.5-15.3) 09/02/22 00:50 Hct 41.0 % (37.0-47.0) 09/02/22 00:50 MCV 88.7 fl (81-99) 09/02/22 00:50 MCH 29.4 pg (28.0-34.0) 09/02/22 00:50 MCHC 33.2 g/dL (30.0-36.0) 09/02/22 00:50 RDW 13.2 % (12.1-15.1) 09/02/22 00:50 Plt Count 185 10^3/cmm (130-400) 09/02/22 00:50 MPV 10.6 fL (7.4-10.4) H 09/02/22 00:50 Neut % (Auto) 63.0 % 09/02/22 00:50 Lymph % (Auto) 22.6 % 09/02/22 00:50 [place] % (Auto) 10.8 % 09/02/22 00:50 Eos % (Auto) 2.5 % 09/02/22 00:50 Baso % (Auto) 0.8 % 09/02/22 00:50 Neut # (Auto) 5.00 10^3/uL (1.8-7.7) 09/02/22 00:50 Lymph # (Auto) 1.8 10^3/uL (0.8-4.8) 09/02/22 00:50 [place] # (Auto) 0.9 10^3/uL (0.2-0.9) 09/02/22 00:50 Eos # (Auto) 0.2 10^3/uL (0.0-0.8) 09/02/22 00:50 Baso # (Auto) 0.1 10^3/uL (0.0-0.1) 09/02/22 00:50 Nucleated RBC % (auto) 0 % 09/02/22 00:50 Nucleated RBCs # 0.0 /100WBC 09/02/22 00:50 Sodium 138 mmol/L (136-145) 09/02/22 00:50 Potassium 3.5 mmol/L (3.5-5.1) 09/02/22 00:50 Chloride 102 mmol/L (98-107) 09/02/22 00:50 Carbon Dioxide 25 mmol/L (22-29) 09/02/22 00:50 Anion Gap 14.5 (5-19) 09/02/22 00:50 BUN 18 mg/dL (8-23) 09/02/22 00:50 Creatinine 0.7 mg/dL (0.5-0.9) 09/02/22 00:50 GFR Calculation Not Reportable 09/02/22 00:50 Glucose 127 mg/dL (65-115) H 09/02/22 00:50 Calculated Osmolality 289 mOsm/kg (285-295) 09/02/22 00:50 Calcium 8.9 mg/dL (8.5-10.5) 09/02/22 00:50 Total Bilirubin 0.3 mg/dL (0.15-1.2) 09/02/22 00:50 AST 19 U/L (0-32) 09/02/22 00:50 ALT 26 U/L (0-33) 09/02/22 00:50 Alkaline Phosphatase 44 U/L (35-105) 09/02/22 00:50 Troponin T Baseline 10 ng/L (0-10) 09/02/22 00:50 Troponin T 120 Minute 8.97 ng/L (0-10) 09/02/22 02:50 Delta Troponin T -1.03 ABS# (0-10) L 09/02/22 02:50 NT-Pro-B Natriuret Pep 57 pg/mL (0-450) 09/02/22 00:50 Total Protein 6.6 g/dL (6.6-8.7) 09/02/22 00:50 Albumin 3.8 g/dL (3.5-5.2) 09/02/22 00:50 Globulin 2.8 g/dL (1.3-4.6) 09/02/22 00:50 Discharge Plan Discharge Patient Disposition: Home Clinical Impression: Chest pain Condition: Stable Prescriptions: No Action furosemide [Lasix] 40 mg tablet 40 mg PO QAM PRN (Reason: edema) Qty: 90 1RF permethrin [Elimite] 5 % cream 1 applic topical ONCE Qty: 60 0RF mupirocin 2 % ointment 1 applic topical BID PRN (Reason: abrasion) Qty: 22 0RF Rx Instructions: apply arms and legs (DME) Disposable nebulizer circuit See Rx Instructions .ROUTE .MEDSUPPLY Qty: 1 2RF Rx Instructions: As directed triamcinolone acetonide 0.1 % ointment 1 applic topical BID PRN (Reason: itching skin) Qty: 80 0RF Rx Instructions: large area arms enalapril maleate 20 mg tablet 20 mg PO DAILY Qty: 90 1RF (DME) Omnipod 5 G6 Intro Kit (Gen 5) Cartridge See Rx Instructions .Route Qty: 1 0RF Rx Instructions: As directed levothyroxine [Synthroid] 200 mcg tablet 200 mcg PO DAILY Qty: 90 3RF liothyronine 5 mcg tablet 10 mcg PO DAILY Qty: 180 3RF Rx Instructions: Take two tablets by mouth daily at noon. levothyroxine [Synthroid] 25 mcg tablet 25 mcg PO DAILY Qty: 90 3RF Rx Instructions: Take 1 tablet in addition to the 200mcg tablet daily for a total of 225mcg daily (DME) Omnipod 5 G6 Pods (Gen 5) Cartridge See Rx Instructions .Route Qty: 90 3RF Rx Instructions: Change every 24 hours. insulin lispro [Humalog U-100 Insulin] 100 unit/mL solution See Rx Instructions .ROUTE .COMPLEX Qty: 1300 2RF Dose Instruction: USE 150 UNITS VIA PUMP CONTINOUS THREE TIMES DAILY Rx Instructions: USE 150 UNITS VIA PUMP CONTINOUS THREE TIMES DAILY erythromycin 500 mg tablet 500 mg PO ONCE Qty: 3 0RF Rx Instructions: Take 1 tablet the night before procedure. Take 2 tablets one hour prior to procedure Discharge Orders: Discharge ED (Routine); Ordered 09/02/22 Ordered By: Oscar Corona Referrals: Tomasz Drummond, [Primary Care Provider] - 4-7 days Patient Instructions: Chest Pain (ED), Esophageal Spasm (ED) Activity Restrictions/Additional Instructions: No definite cause was found for your chest pain this morning. Your heart attack enzymes remain normal. Your stress test on 08/27 was normal as well. Pain could have been due to esophageal spasm, although there is no emergency department test for this. See your doctor this coming week. Return for repeated episodes of chest pain, other concerning symptoms Coding Level of Care Code ED Assistant Branch Manager for Allen Llanos
--- NOTE | 2022-09-02 02:58 | ECG_ITS ---
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 Measurements Intervals [place] Rate: 82 P: 52 AR: 211 QRS: -11 QRSD: 82 T: 86 QT: 369 QTc: 432 Interpretive Statements SINUS RHYTHM WITH FIRST DEGREE AV BLOCK NONSPECIFIC T-WAVE ABNORMALITY Compared to ECG 08/08/2022 13:20:14 First degree AV block now present T-wave abnormality still present Electronically Signed On 09-02-2022 9:38:24 CDT by Bola Reynolds M.D. [id number]
[2022-09-02 03:00] VITALS: BP 133/69; PULSE 85; RESP 15; O2SAT 95
[2022-09-02 03:16] LABS: Troponin 5 2HR 8.97 ng/L (0-10)
[2022-09-02 03:23] LABS: Troponin 5 2HR Delta -1.03 ABS# (0-10)
[2022-09-02 03:38] VITALS: BP 149/80; PULSE 86; RESP 18; O2SAT 97
== END 2022-09-02 03:44 | disposition home or self-care (01) ==
PROVIDERS: Emergency Provider Emergency Medicine; PCP Family Medicine
DX: R07.9 Chest pain, unspecified (principal); Z79.4 Long term (current) use of insulin; E11.9 Type 2 diabetes mellitus without complications; I10 Essential (primary) hypertension
CPT/HCPCS: 71045; 80053; 83880; 84484; 85025; 93005; 99285

== ENCOUNTER 2022-09-04 08:08 | Outpatient (CLI) | payer MEDICARE, SELFPAY ==
--- NOTE | 2022-09-04 08:10 | CTR_ITS ---
PROCEDURE INFORMATION: Exam: CT Lumbar Spine Without Contrast Exam date and time: 09/04/2022 8:20 AM Age: 77 years old Clinical indication: Prior surgery; Surgery date: 6+ months; Surgery type: Hyst, gb; Patient HX: Chronic low back pain; Additional info: M51.16 - intervertebral disc disorders with radiculopathy. . . TECHNIQUE: Imaging protocol: Computed tomography of the lumbar spine without contrast. Radiation optimization: All CT scans at this facility use at least one of these dose optimization techniques: automated exposure control; mA and/or kV adjustment per patient size (includes targeted exams where dose is matched to clinical indication); or iterative reconstruction. REPORTING DATA: Count of CT and Cardiac NM exams in prior 12 months: This patient has received 2 known CTs and 0 known cardiac nuclear medicine studies in the 12 months prior to the current study. COMPARISON: MR lumbar spine wo con* [id number] 03/11/2019 3:02 PM RADIATION DOSE METRICS: Total DLP (mGy-cm): 1038.38 FINDINGS: Bones/joints: Negative for fracture or dislocation. Lumbar spine levoscoliosis. L1-L2: L1-L2 broad-based disc bulge with minimal spinal canal narrowing. L2-L3: No significant disc bulge or herniation. No severe spinal canal stenosis. No significant neural foraminal narrowing. L3-L4: L3-L4 broad-based disc bulge with moderate to severe spinal canal and bilateral foraminal narrowing. L4-L5: L4-L5 calcified disc bulge and productive degenerative endplate changes resulting in moderate spinal canal and mild bilateral foraminal narrowing. L5-S1: L5/S1 productive degenerative changes with moderate bilateral foraminal narrowing. Soft tissues: Unremarkable. CT/CT lumbar spine wo con* [id number] IMPRESSION: 1. L1-L2 broad-based disc bulge with minimal spinal canal narrowing. 2. L3-L4 broad-based disc bulge with moderate to severe spinal canal and bilateral foraminal narrowing. 3. L4-L5 calcified disc bulge and productive degenerative endplate changes resulting in moderate spinal canal and mild bilateral foraminal narrowing. 4. L5/S1 productive degenerative changes with moderate bilateral foraminal narrowing.
== END 2022-09-04 08:09 | disposition home or self-care (01) ==
LOC: RAD 08:09
PROVIDERS: PCP Family Medicine; Visit Provider Family Medicine
DX: M51.26 Other intervertebral disc displacement, lumbar region (principal); M48.061 Spinal stenosis, lumbar region without neurogenic claudication; M48.07 Spinal stenosis, lumbosacral region
CPT/HCPCS: 72131

== ENCOUNTER → 2022-12-02 08:12 | Outpatient (BNVA) | payer MEDICARE, SELFPAY | PROVIDERS: PCP Family Medicine; Visit Provider Specialist | DX: R29.90 Unspecified symptoms and signs involving the nervous system (principal); F44.5 Conversion disorder with seizures or convulsions; F22 Delusional disorders; F25.9 Schizoaffective disorder, unspecified | CPT/HCPCS: 99212; 99213 ==

== ENCOUNTER → 2023-01-03 11:34 | Outpatient (BNVA) | payer MEDICARE, SELFPAY | PROVIDERS: PCP Family Medicine; Visit Provider Internal Medicine | DX: E11.65 Type 2 diabetes mellitus with hyperglycemia (principal); Z79.4 Long term (current) use of insulin; E06.3 Autoimmune thyroiditis; Z79.890 Hormone replacement therapy | CPT/HCPCS: 99214 ==

== ENCOUNTER → 2023-02-03 10:25 | Outpatient (BNVA) | payer MEDICARE, SELFPAY | PROVIDERS: PCP Family Medicine; Visit Provider Nurse Practitioner Family | DX: E06.3 Autoimmune thyroiditis (principal); E11.65 Type 2 diabetes mellitus with hyperglycemia; Z79.4 Long term (current) use of insulin; I10 Essential (primary) hypertension; J32.9 Chronic sinusitis, unspecified | CPT/HCPCS: 80053; 80061; 82043; 83036; 84439; 84443 ==

== ENCOUNTER → 2023-04-09 12:11 | Outpatient (BNVA) | payer MEDICARE, SELFPAY | PROVIDERS: PCP Family Medicine; Visit Provider Specialist | DX: R29.90 Unspecified symptoms and signs involving the nervous system (principal); F41.1 Generalized anxiety disorder; F44.81 Dissociative identity disorder; F44.5 Conversion disorder with seizures or convulsions; M51.16 Intervertebral disc disorders with radiculopathy, lumbar region | CPT/HCPCS: 99214 ==

== ENCOUNTER → 2023-04-16 10:24 | Outpatient (BNVA) | payer MEDICARE, SELFPAY | PROVIDERS: PCP Family Medicine; Visit Provider Family Medicine | DX: E11.65 Type 2 diabetes mellitus with hyperglycemia (principal); Z79.4 Long term (current) use of insulin; E06.3 Autoimmune thyroiditis | CPT/HCPCS: 80053; 80061; 83036; 84439; 84443 ==

== ENCOUNTER → 2023-05-08 08:44 | Outpatient (BNVA) | payer MEDICARE, SELFPAY | PROVIDERS: PCP Family Medicine; Visit Provider Internal Medicine | DX: E11.65 Type 2 diabetes mellitus with hyperglycemia (principal); Z79.4 Long term (current) use of insulin; E06.3 Autoimmune thyroiditis; G47.33 Obstructive sleep apnea (adult) (pediatric); Z79.890 Hormone replacement therapy | CPT/HCPCS: 99214 ==

== ENCOUNTER 2023-07-14 09:52 | Outpatient (CLI) | payer MEDICARE, SELFPAY ==
--- NOTE | 2023-07-14 10:00 | US_ITS ---
WS: [id number] DIAGNOSTIC BILATERAL DIGITAL BREAST TOMOSYNTHESIS MAMMOGRAPHY WITH CAD HISTORY: UNSPECIFIED LEFT BREAST LUMP, history of RIGHT breast cancer. COMPARISON: 08/26/2022, 09/23/2019 TECHNIQUE: Bilateral craniocaudad, mediolateral oblique, and mediolateral views are submitted with to mosynthesis and SM. Spot compression LEFT MLO. Computer aided detection utilized. Breast composition: There are scattered areas of fibroglandular density. Small caliber RIGHT breast f rom prior lumpectomy. Dystrophic calcifications and surgical clips are reidentified in the RIGHT sil[address]. No abnormality is noted in the LEFT breast at the site of the palpable marker near the areola. Th ere are few calcifications present which appear benign but will need additional imaging. LEFT breast ultrasound, limited. Ultrasound is directed to the palpable area and around the areola. No abnormality is identified. No s hadowing. US/US breast LT limited* [id number] IMPRESSION: BI-RADS: 3-Probably Benign FOLLOW UP: 6 Month Follow-up Recommend 6-month reevaluation of the new but probably benign calcifications in the anterior LEFT breast. No mass identified in the palpable area near the areola.
--- NOTE | 2023-07-14 10:06 | MM_ITS ---
WS: [id number] DIAGNOSTIC BILATERAL DIGITAL BREAST TOMOSYNTHESIS MAMMOGRAPHY WITH CAD HISTORY: UNSPECIFIED LEFT BREAST LUMP, history of RIGHT breast cancer. COMPARISON: 08/26/2022, 09/23/2019 TECHNIQUE: Bilateral craniocaudad, mediolateral oblique, and mediolateral views are submitted with to mosynthesis and SM. Spot compression LEFT MLO. Computer aided detection utilized. Breast composition: There are scattered areas of fibroglandular density. Small caliber RIGHT breast f rom prior lumpectomy. Dystrophic calcifications and surgical clips are reidentified in the RIGHT sil[address]. No abnormality is noted in the LEFT breast at the site of the palpable marker near the areola. Th ere are few calcifications present which appear benign but will need additional imaging. LEFT breast ultrasound, limited. Ultrasound is directed to the palpable area and around the areola. No abnormality is identified. No s hadowing. MM/[place] [id number] IMPRESSION: BI-RADS: 3-Probably Benign FOLLOW UP: 6 Month Follow-up Recommend 6-month reevaluation of the new but probably benign calcifications in the anterior LEFT breast. No mass identified in the palpable area near the areola.
== END 2023-07-14 09:53 | disposition home or self-care (01) ==
LOC: RAD 09:53
PROVIDERS: PCP Family Medicine; Visit Provider Family Medicine
DX: N63.20 Unspecified lump in the left breast, unspecified quadrant (principal); Z85.3 Personal history of malignant neoplasm of breast; R92.322 Mammographic fibroglandular density, left breast
CPT/HCPCS: 76642; 77062; G0279

== ENCOUNTER → 2023-07-21 10:34 | Outpatient (BNVA) | payer MEDICARE, SELFPAY | PROVIDERS: PCP Family Medicine; Visit Provider Internal Medicine Rheumatology | DX: Z79.899 Other long term (current) drug therapy (principal); Z11.59 Encounter for screening for other viral diseases; Z11.1 Encounter for screening for respiratory tuberculosis; M19.042 Primary osteoarthritis, left hand; I70.0 Atherosclerosis of aorta; M25.50 Pain in unspecified joint; M54.50 Low back pain, unspecified; G89.29 Other chronic pain; E06.3 Autoimmune thyroiditis; E11.65 Type 2 diabetes mellitus with hyperglycemia; Z79.4 Long term (current) use of insulin | CPT/HCPCS: 36415; 71046; 73130; 73630; 80076; 82565; 85025; 85651; 86038; 86140; 86235; 86431; 86480; 86704; 86803; 87340; 99204 ==

== ENCOUNTER → 2023-07-25 11:45 | Outpatient (BNVA) | payer MEDICARE, SELFPAY | PROVIDERS: PCP Family Medicine; Visit Provider Internal Medicine | DX: E06.3 Autoimmune thyroiditis (principal); E03.9 Hypothyroidism, unspecified | CPT/HCPCS: 84439; 84443 ==

== ENCOUNTER 2023-09-09 14:09 | Oncology outpatient (recurring) (ONCR) | payer MEDICARE, SELFPAY | END 2023-10-08 23:59 | disposition home or self-care (01) | PROVIDERS: PCP Family Medicine; Visit Provider Internal Medicine Medical Oncology | DX: N63.42 Unspecified lump in left breast, subareolar (principal); Z85.3 Personal history of malignant neoplasm of breast; Z92.3 Personal history of irradiation; Z92.25 Personal history of immunosuppression therapy | CPT/HCPCS: 99205 ==

== ENCOUNTER → 2023-10-01 11:52 | Outpatient (BNVA) | payer MEDICARE, SELFPAY | PROVIDERS: PCP Family Medicine; Visit Provider Specialist | DX: R29.90 Unspecified symptoms and signs involving the nervous system (principal); F41.1 Generalized anxiety disorder; F44.81 Dissociative identity disorder; F44.5 Conversion disorder with seizures or convulsions; M51.16 Intervertebral disc disorders with radiculopathy, lumbar region; F25.9 Schizoaffective disorder, unspecified | CPT/HCPCS: 99213; 99214 ==

== ENCOUNTER → 2023-10-02 08:37 | Outpatient (BNVA) | payer MEDICARE, SELFPAY | PROVIDERS: PCP Family Medicine; Visit Provider Internal Medicine | DX: E11.65 Type 2 diabetes mellitus with hyperglycemia (principal); Z79.4 Long term (current) use of insulin; E06.3 Autoimmune thyroiditis | CPT/HCPCS: 80053; 80061; 83036; 84439; 84443; 84480 ==

== ENCOUNTER → 2023-10-07 11:49 | Outpatient (BNVA) | payer MEDICARE, SELFPAY | PROVIDERS: PCP Family Medicine; Visit Provider Internal Medicine | DX: E11.65 Type 2 diabetes mellitus with hyperglycemia (principal); Z79.4 Long term (current) use of insulin; E06.3 Autoimmune thyroiditis; G47.33 Obstructive sleep apnea (adult) (pediatric); Z79.890 Hormone replacement therapy | CPT/HCPCS: 99214 ==

== ENCOUNTER → 2023-10-15 10:01 | Outpatient (BNVA) | payer MEDICARE, SELFPAY | PROVIDERS: PCP Family Medicine; Visit Provider Surgery | DX: N64.59 Other signs and symptoms in breast (principal) | CPT/HCPCS: 99204 ==

== ENCOUNTER 2023-10-20 07:22 | Day surgery (SDC) | payer MEDICARE, SELFPAY ==
[2023-10-20] VITALS (10 sets, daily range): BP systolic 151–170; BP diastolic 71–96; PULSE 80–99; RESP 12–20; TEMP 36.3–36.9; O2SAT 96–98; BMI 46.4
--- NOTE | 2023-10-20 08:10 | P.HPUD_ITS ---
Surgery/Procedure H&P Update DATE OF PROCEDURE: October 20, 2023 DATE H&P PERFORMED: 10/15/23 H&P UPDATE INFORMATION: I have reviewed H&P completed within last 30 days, I have examined patient prior to procedure, No changes to prior documentation and H[place] is in [facility] date indicated PREOP DIAGNOSIS: left breast nodule PLANNED PROCEDURE: Operation Date: 10/20/23 09:05 Proposed Procedures p Excision of Breast Mass Breast Lumpectomy 245026, N63.42(Left) - Reed Mathew MD
[2023-10-20] MEDS: sodium chloride 0.9% 1,000 ML 30 ML IV (08:19)
[2023-10-20 08:37] LABS: Glucose Point of Care 205 mg/dL (70-110)
[2023-10-20 08:39] LABS: Anion Gap 18.4 (5-19); Blood Urea Nitrogen 22 mg/dL (8-23); Calcium 8.9 mg/dL (8.5-10.5); Carbon Dioxide 21 mmol/L (22-29); Chloride 102 mmol/L (98-107); Creatinine Clr Calc Pharmacy 62.1574; Glucose 217 mg/dL (65-115); Osmolality Calculated 294 mOsm/kg (285-295); Potassium 4.4 mmol/L (3.5-5.1); Sodium 137 mmol/L (136-145)
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
[2023-10-20] MEDS: vancomycin 1,000 MG in sodium chloride 0.9% 250 ML 250 MG IV (09:54)
[2023-10-20 09:55] LABS: Glucose Point of Care 195 mg/dL (70-110)
[2023-10-20] MEDS: lidocaine-epi 1% 20 mL INJ INJECTION (11:00)
[2023-10-20] MEDS: BUPivacaine 0.25% INJ 10 mL INJECTION (11:00)
--- NOTE | 2023-10-20 11:18 | PM.OP ---
Operative Report Date of procedure: October 20, 2023 Pre-op diagnosis: Left breast mass Post-op diagnosis: Same Post-op findings: There was a small 2 x 1 x 1 cm palpable left breast mass in a subareolar location of the inner upper quadrant Procedure done: Left breast lumpectomy Specimens removed/disposition: Left breast mass, marked short superior and long lateral Surgeon: Reed Mathew MD Robotic Welding Operator: MONICA OR Staff Estimated blood loss: 5 Brief History: 78-year-old female with history of right breast cancer who presented to my clinic for evaluation of a left breast mass, was not seen in imaging but it was palpable under the areola therefore we decided to proceed with excision, since the probability of cancer is very low as it does not show any evidence of mammographic or ultrasound abnormality suicide to proceed just with lumpectomy without need for sentinel node biopsy. Procedure: Patient was brought into the OR, she was placed in a supine position, general anesthesia was given. The left breast was prepped and draped in the usual sterile fashion. Timeout was conducted. I proceeded to identify the lesion by palpation, I made a 4 cm incision following the lining of the areola of the inner upper quadrant of the left breast. The incision was deepened with electrocautery and the superficial breast fascia was opened, was immediately able to identify the lesion which appeared a hard nodule measuring about 1 x 2 cm. The lesion was elevated with the Allis clamp and circumferentially dissected with electrocautery, the lesion was completely circumferentially dissected and excised from the surrounding tissue, the specimen was then marked with a long lateral suture and a short superior suture to allow for pathological description. I then proceeded to check the cavity for any residual induration and none was found. The wound was irrigated with saline hemostasis was achieved and local anesthesia was infiltrated. The wound was then closed in layers using #3-0 Vicryl for the deep tissue, superficial breast fascia. And 4 Monocryl for the skin. Dermabond was applied. At the end of the procedure all counts were correct, the patient tolerated well the procedure and was transferred to the PACU in stable condition
--- NOTE | 2023-10-20 12:50 | ANE.PACU2 ---
Inpatient post-anesthesia follow up: Airway intact: Yes Vital signs: Temperature 97.5 F Pulse Rate 86 Respiratory Rate 18 Blood Pressure 156/82 Pulse Oximetry 96 Oxygen Delivery Me thod Room Air Oxygen Flow Rate Fraction of Inspir ed Oxygen Hydration adequate: Yes Nausea and vomiting: No Pain level: 1 Mental status: Baseline
== END 2023-10-20 10:53 | disposition home or self-care (01) ==
PROVIDERS: Anesthesiology; PCP Family Medicine; Visit Provider Surgery
PROC: (CPT 19120; principal; 2023-10-20 08:55)
DX: D05.92 Unspecified type of carcinoma in situ of left breast (principal); G47.30 Sleep apnea, unspecified; I10 Essential (primary) hypertension; E11.9 Type 2 diabetes mellitus without complications; E66.01 Morbid (severe) obesity due to excess calories; Z68.42 Body mass index [BMI] 45.0-49.9, adult; F20.9 Schizophrenia, unspecified; Z79.4 Long term (current) use of insulin; M79.7 Fibromyalgia; E11.65 Type 2 diabetes mellitus with hyperglycemia
CPT/HCPCS: 36415; 36416; 80048; 82962; 88305; 88307; 88342; 88361; 88374; J1100; J2405; J2704; J3010; J3370; J3490; J7030; J7050

== ENCOUNTER → 2023-10-24 09:50 | Outpatient (BNVA) | payer MEDICARE, SELFPAY | PROVIDERS: PCP Family Medicine; Visit Provider Surgery | DX: N63.0 Unspecified lump in unspecified breast (principal); N64.4 Mastodynia; N63.20 Unspecified lump in the left breast, unspecified quadrant | CPT/HCPCS: 99213 ==

== ENCOUNTER 2023-11-03 06:05 | Day surgery (SDC) | payer MEDICARE, SELFPAY ==
[2023-11-03] VITALS (13 sets, daily range): BP systolic 160–181; BP diastolic 60–93; PULSE 80–94; RESP 12–18; TEMP 36.3–37.5; O2SAT 96–100; BMI 46.4
--- NOTE | 2023-11-03 05:49 | P.HPUD_ITS ---
Surgery/Procedure H&P Update DATE OF PROCEDURE: November 03, 2023 DATE H&P PERFORMED: 10/15/23 H&P UPDATE INFORMATION: I have reviewed H&P completed within last 30 days, I have examined patient prior to procedure, No changes to prior documentation and H&P is in [facility] [facility] EMR on date indicated PLANNED PROCEDURE: Operation Date: 11/03/23 08:00 Proposed Procedures p Excision of Breast Mass Breast Lumpectomy(Left) - Reed Mathew MD
[2023-11-03 07:00] LABS: Glucose Point of Care 182 mg/dL (70-110)
[2023-11-03] MEDS: sodium chloride 0.9% 1,000 ML 30 ML IV (07:15)
[2023-11-03] MEDS: vancomycin 1,000 MG in sodium chloride 0.9% 250 ML 250 MG IV (08:11)
--- NOTE | 2023-11-03 08:12 | ANES.PREANE2 ---
Pre-Anesthetic Assessment Height/Weight: Height 5 ft 3 in Weight 262 lb Temp Pulse Resp BP Pulse Ox O2 Del Method 97.3 F L 80 18 171/63 98 Room Air 11/03/23 06:30 11/03/23 06:30 11/03/23 06:30 11/03/23 06:30 11/03/23 06:30 11/03/23 07:05 Operation Date: 11/03/23 08:00 Proposed Procedures p Excision of Breast Mass Breast Lumpectomy(Left) - Reed Mathew MD Last intake: Intake Last Liquid Date 11/02/23 Last Liquid Time 22:30 Last Solid Date 11/02/23 Last Solid Time 22:30 Social No alcohol and No tobacco Exam alert, oriented x 3 and clear to auscultation bilaterally Airway Submandibular: within normal limits Cervical ROM: within normal limits Mallampati: Class III Dentition: full Anesthetic Plan ASA status: 3 Anesthesia: General Other: Patient has reported history of cardiac arrest under GA during a cholecystectomy. Also notes awareness under anesthesia during that same procedure due to beginning procedure before she was asleep. NPO since midnight Similar procedure on 10/19 at this facility without issues, LMA size 4 used at that time Patient has a history of delusional disorder, PTSD. She states she gets seizures when she switches from different personalities too quickly. No antiepileptic epileptic medications. Most recent seizure was years ago Labs reviewed Patient is on high doses of insulin(over 200 units daily), a.m. glucose 182 TOMI, BiPAP use 23/12 Hypertension controlled with enalapril Plan for general anesthesia Medications/Allergies Home Medications Medication Instructions Recorded Confirmed Last Taken Type insulin pump cartridge,automated #1 ea 08/23/21 10/24/23 10/31/23 Rx dose,BT with controller subcutaneous (Omnipod 5 G6 Intro Kit (Gen 5) subcutaneous cartridge with controller) Disposable nebulizer circuit #1 ea 11/06/21 10/24/23 10/31/23 Rx liothyronine 5 mcg tablet 10 mcg (2 x 5 mcg) PO DAILY #180 12/20/22 10/31/23 11/02/23 Rx tabs sodium chloride 0.65 % nasal spray 2 spray intranasal Q4H PRN dry 04/08/23 10/31/23 10/31/23 Rx aerosol (Saline Mist) nasal passages/infection #44 mL furosemide 40 mg tablet (Lasix) 40 mg PO QAM PRN edema #90 tabs 05/14/23 10/31/23 11/02/23 Rx insulin pump cart,automated,BT #90 ea 06/16/23 10/24/23 10/31/23 Rx (Omnipod 5 G6 Pods (Gen 5) subcutaneous cartridge) walker with seat/brakes #1 ea 08/27/23 10/24/23 10/31/23 Rx lidocaine 3 % topical cream 1 applic topical BID PRN Pain 09/09/23 10/31/23 11/02/23 History mecobalamin (vitamin B12) 500 mcg 500 mcg PO DAILY 09/09/23 10/31/23 11/02/23 History chewable tablet itajofwy-awh-sjom 18 mg-FA 400 1 tab PO DAILY 09/09/23 10/31/23 11/02/23 History mcg-calcium 500 mg-vit K 50 mcg tablet (Women's Multivitamin) insulin lispro 100 unit/mL 25 unit (0.25 mL) SUBCUT TID #67.5 09/16/23 10/31/23 11/01/23 Rx subcutaneous pen (Humalog KwikPen mL (U-100) Insulin) insulin glargine 100 unit/mL (3 40 unit (0.4 mL) SUBCUT BID #72 mL 09/30/23 10/31/23 11/01/23 Rx mL) subcutaneous pen (Lantus Solostar U-100 Insulin) pen needle, diabetic 32 gauge x #100 ea 09/30/23 10/24/23 10/31/23 Rx /32 (UltiCare Pen Needle) levothyroxine 200 mcg tablet 200 mcg PO DAILY 10/20/23 10/31/23 11/02/23 History enalapril maleate 5 mg tablet 30 mg PO BEDTIME 10/31/23 10/31/23 11/02/23 History hydromorphone 2 mg tablet 2 mg PO TID PRN Pain 10/31/23 10/31/23 11/02/23 History Allergies Allergy/AdvReac Type Severity Reaction Status Date / Time tizanidine [From Zanaflex] Allergy Intermediate ADR-Itching Verified 10/24/23 09:50 amoxicillin Allergy na Verified 10/24/23 09:50 aspirin Allergy na Verified 10/24/23 09:50 codeine Allergy na Verified 10/24/23 09:50 gluten Allergy inflamatory Verified 10/24/23 09:50 response metformin Allergy na Verified 10/24/23 09:50 pineapple Allergy na Verified 10/24/23 09:50 psyllium Allergy sick, Verified 10/24/23 09:50 diarrhea, bloody stools sulfamethoxazole Allergy na Verified 10/24/23 09:50 [From Bactrim] trimethoprim [From Bactrim] Allergy na Verified 10/24/23 09:50 red color Allergy ADR-Hyperte Uncoded 10/24/23 09:50 nsion Current Medications Generic Name Dose Route Start Last Admin Trade Name Freq PRN Reason Stop Dose Admin Sodium Chloride 1,000 mls @ 30 mls/hr 11/03/23 06:45 11/03/23 07:15 Sodium Chloride 0.9% IV 11/04/23 06:44 30 mls/hr .Q24H AMIRA Administration PFSH Anesthesia Medical History Chronic low back pain Breast cancer treated with lumpectomy and radiation Fibromyalgia Polyarthralgia Grief Delusional disorder Multiple personality disorder Cyrus's thyroiditis (~06/2020) Diabetes mellitus with hyperglycemia, with long-term current use of insulin AB (asthmatic bronchitis) Essential (primary) hypertension Chronic bilateral thoracic back pain Lumbar disc disease with radiculopathy Surgical History History of lumpectomy of right breast (08/30/16) Right breast lumpectomy with axillary sentinel lymph node biopsy History of total bilateral knee replacement Hx of cholecystectomy Hx of vaginal hysterectomy Family History Unknown Adopted [place] in [place] Social History Smoking and tobacco/nicotine status: never used tobacco/nicotine Second hand smoke exposure: No Alcohol intake: never Substance/Drug Use: never Adopted: Yes Caregiver/support person: No Lives independently: Yes Marital status: / Number of children: 1 service: No Current occupational status: unemployed and retired Do you think of yourself as: Straight/Heterosexual Current gender identity: Female Data Anesthesia Cardiac Studies: Echocardiogram 08/30/22 Sestamibi Stress Test (Cardiology) 08/27/22
[2023-11-03] MEDS: BUPivacaine 0.25% INJ 10 mL INJECTION (09:06)
[2023-11-03] MEDS: lidocaine-epi 1% 20 mL INJ INJECTION (09:06)
--- NOTE | 2023-11-03 09:36 | P.OP_ITS ---
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 Post-op diagnosis: Same Post-op findings: Normal breast tissue on the left side, appropriate wound healing with some induration of the wound edges from previous surgery Procedure done: Left breast lumpectomy Specimens removed/disposition: Left breast tissue medial margin, left breast tissue lateral margin, left breast tissue superior margin Surgeon: Reed Mathew MD Industrial Yard Brake Coupler: MONICA OR Staff Estimated blood loss: 5 Brief History: This is a 78-year-old female with history of a left breast lesion, she underwent excision, pathology showed evidence of DCIS with a positive lateral margin, we decided to return to the OR for additional excision to obtain 2 mm margins all around. Procedure: Patient was brought into the OR, she was placed in a supine position. General anesthesia was given. The left breast was prepped and draped in the usual sterile fashion. Timeout was conducted. I proceeded to open the previous surgical incision with a 15 blade, I opened all the layers of the tissue, adequate wound healing was noted. Once the breast pocket was completely open I proceeded with excision. First grasped a portion of the medial aspect of the wound and proceeded to remove piece of tissue measuring about 1 x 1 cm with electrocautery. This was marked with a short superior silk and a long lateral silk and sent to pathology as a medial margin, I then put my attention on the lateral aspect of the wound I grasped the breast tissue with an Allis clamp and proceeded to excise 1 x 1 cm specimen of breast, this was marked with a short s uperior and long lateral silk and was labeled lateral margin. Finally I placed my attention on the superior aspect of the wound there was a small amount of induration in that area so I decided to proceed with resection I grabs the area with an Allis clamp and proceeded to excise it from the surrounding tissue using electrocautery, this specimen was labeled superior margin. The wound was irrigated with saline, local anesthesia was infiltrated. Hemostasis was obtained with electrocautery and verified. Before closing I proceeded to freshen up the borders of the skin by excising the superior and inferior margins with a fresh blade. The wound was then closed in layers using #2 Vicryl for the deep breast tissue, #3-0 Vicryl for the superficial breast fascia and #4 Monocryl for the skin. Dermabond was applied and a compressive dressing was applied on top. At the end of the procedure all counts were correct, the patient tolerated well the procedure and was transferred to the PACU in stable condition.
[2023-11-03] MEDS: HYDROmorphone 1 mg/mL INJ 1 mL 0.5 MG IVP (09:39)
--- NOTE | 2023-11-03 11:25 | ANE.PACU2 ---
Inpatient post-anesthesia follow up: Airway intact: Yes Vital signs: Temperature 99.2 F Pulse Rate 84 Respiratory Rate 18 Blood Pressure 173/82 Pulse Oximetry 97 Oxygen Delivery Me thod Room Air Oxygen Flow Rate 1 Fraction of Inspir ed Oxygen Hydration adequate: Yes Nausea and vomiting: No Pain level: 1 Mental status: Baseline
[2023-11-03 11:37] LABS: Glucose Point of Care 243 mg/dL (70-110)
== END 2023-11-03 11:25 | disposition home or self-care (01) ==
PROVIDERS: PCP Family Medicine; Visit Provider Surgery
PROC: (CPT 19120; principal; 2023-11-03 07:50)
DX: D05.12 Intraductal carcinoma in situ of left breast (principal); G47.33 Obstructive sleep apnea (adult) (pediatric); Z99.89 Dependence on other enabling machines and devices; Z79.4 Long term (current) use of insulin; M79.7 Fibromyalgia; E11.65 Type 2 diabetes mellitus with hyperglycemia
CPT/HCPCS: 19301; 36416; 82962; 88307; 88361; 88374; J1100; J1170; J2405; J2704; J3010; J3370; J3490; J7030; J7050

== ENCOUNTER 2023-11-13 12:35 | Oncology outpatient (recurring) (ONCR) | payer MEDICARE, SELFPAY | END 2023-12-08 23:59 | disposition home or self-care (01) | LOC: ONCMED 12:36 | PROVIDERS: PCP Family Medicine; Visit Provider Internal Medicine Medical Oncology | DX: D05.12 Intraductal carcinoma in situ of left breast (principal) | CPT/HCPCS: 99214 ==

== ENCOUNTER → 2023-11-26 10:34 | Outpatient (BNVA) | payer MEDICARE, SELFPAY | PROVIDERS: PCP Family Medicine; Visit Provider Surgery | DX: D05.12 Intraductal carcinoma in situ of left breast (principal); Z85.3 Personal history of malignant neoplasm of breast | CPT/HCPCS: 99214 ==

== ENCOUNTER 2023-12-01 15:27 | Inpatient (IN) | payer MEDICARE, SELFPAY ==
[2023-12-01] VITALS (18 sets, daily range): BP systolic 112–176; BP diastolic 58–82; PULSE 68–85; RESP 12–18; TEMP 36.3–37; O2SAT 94–99; BMI 46.4
[2023-12-01] MEDS: sodium chloride 0.9% 1,000 ML 30 ML IV (07:39)
--- NOTE | 2023-12-01 07:41 | NM_ITS ---
WS: [id number] NUCLEAR MEDICINE SENTINEL LYMPH NODE IMAGING HISTORY: Left sentinel node biopsy and possible axillary dissection COMPARISON: Prior mammogram and ultrasound 07/14/2023 reviewed. TECHNIQUE: The patient was injected with 1.07 mCi of Lymphoseek. Injection is intradermal in a periar eolar location. Single injection site. Mild massage after injection for approximately 30 seconds. At approximately 90 minutes after the injection a lymph node is identified towards the axillary tail. At the nearly 2 hours to lymph nodes are identified. First visualized lymph node will be localized. Lymph node is localized and skin is marked with a permanent marker. Physician initials on skin. NM/NM sentinel node inject [id number] IMPRESSION: LEFT [place] lymph node injection with sentinel node marked prior to surgery.
[2023-12-01 07:43] LABS: Glucose Point of Care 206 mg/dL (70-110)
[2023-12-01 07:57] LABS: Basophils % 0.6 %; Eosinophils # 0.2 10^3/uL (0.0-0.8); Eosinophils % 2.3 %; Hematocrit 39.2 % (36-47); Lymphocytes # 1.5 10^3/uL (0.8-4.8); Lymphocytes % 22.2 %; Mean Corpuscular HGB Conc 33.7 g/dL (30-55); Mean Corpuscular Hemoglobin 30.6 pg (27-33); Mean Corpuscular Volume 90.7 fl (85-98); Mean Platelet Volume 10.6 fL (7.4-10.4); Monocytes # 0.7 10^3/uL (0.2-0.9); Neutrophils # 4.27 10^3/uL (1.8-7.7); Neutrophils % 64.6 %; Nucleated Red Blood Cells % 0 %; Platelet Count 174 10^3/cmm (157-399); Red Blood Count 4.32 10^6/uL (3.85-5.65); White Blood Count 6.61 10^3/uL (3.29-11.43)
[2023-12-01 08:28] LABS: Anion Gap 17.6 (5-19); Blood Urea Nitrogen 26 mg/dL (8-23); Calcium 9.2 mg/dL (8.5-10.5); Carbon Dioxide 22 mmol/L (22-29); Chloride 104 mmol/L (98-107); Creatinine Clr Calc Pharmacy 62.1574; Glucose 197 mg/dL (65-115); Osmolality Calculated 298 mOsm/kg (285-295); Potassium 4.6 mmol/L (3.5-5.1); Sodium 139 mmol/L (136-145)
--- NOTE | 2023-12-01 09:10 | P.HPUD_ITS ---
Surgery/Procedure H&P Update DATE OF PROCEDURE: December 01, 2023 DATE H&P PERFORMED: 11/26/23 H&P UPDATE INFORMATION: I have reviewed H&P completed within last 30 days, I have examined patient prior to procedure, No changes to prior documentation and H&P is in [facility] [place] [facility] EMR on date indicated PLANNED PROCEDURE: Operation Date: 12/01/23 11:30 Proposed Procedures p Mastectomy Simple 93060, 26101, 43060, 71564, 87499, DO5.12(Left) - Reed Mathew MD s Sentinal Lymph Node Biopsy with lymphoscintigraphy with lymph node localization(Left) - Reed Mathew MD
--- NOTE | 2023-12-01 11:26 | ANES.PAUD2 ---
Pre-Anesthetic Update Pre-Anesthetic Assessment: Date of Surgery/Procedure: 12/01/23 Proposed Procedure: Operation Date: 12/01/23 11:30 Proposed Procedures p Mastectomy Simple 73826, 28818, 23945, 87885, 63856, DO5.12(Left) - Reed Mathew MD s Sentinal Lymph Node Biopsy with lymphoscintigraphy with lymph node localization(Left) - Reed Mathew MD Any changes to Pre-Anesthetic Assessment?: No Last Intake: Intake Last Liquid Date 11/30/23 Last Liquid Time 23:30 Last Solid Date 11/30/23 Last Solid Time 23:30 Labs Last 48hrs: Short CBC 12/01/23 Range/Units 07:38 WBC 6.61 (3.29-11.43) 10^ 3/uL Hgb 13.20 (11.27-16.99) g/ dL Hct 39.2 (36-47) % MCV 90.7 (85-98) fl Plt Count 174 (157-399) 10^3/c mm Neut % (Auto) 64.6 % Neut # (Auto) 4.27 (1.8-7.7) 10^3/u L BMP 12/01/23 07:38 Sodium 139 Potassium 4.6 Chloride 104 Carbon Dioxide 22 BUN 26 H Creatinine 0.9 Glucose 197 H Calcium 9.2 Vitals: Temperature 97.4 F L 12/01/23 07:24 Temperature Source Temporal Artery S can 12/01/23 07:24 Pulse Rate 83 12/01/23 07:24 Pulse Rhythm Regular 12/01/23 07:24 Pulse Strength 3+ Normal 12/01/23 07:24 Respiratory Rate 18 12/01/23 07:24 Blood Pressure 154/64 12/01/23 07:24 Blood Pressure Domonique n 94 12/01/23 07:24 Pulse Oximetry 95 12/01/23 07:24 Oxygen Delivery Me thod Room Air 12/01/23 07:24 Exam: Pre-Anes Outpt Exam: alert, oriented x 3, clear to auscultation bilaterally and regular rate & rhythm Other Pertinent Information: Other Pertinent Information: states fentanyl made her feel drunk for 3 days afterwards and would prefer to minimize use of this drug perioperatively Cardiac Studies: Echocardiogram 08/30/22 Sestamibi Stress Test (Cardiology) 08/27/22
[2023-12-01] MEDS: vancomycin 1,500 MG/300 ML PIGGYBACK 200 MG IV (11:57)
[2023-12-01] MEDS: isosulfan blue 10 mg/mL SDV 5mL XX (12:25)
[2023-12-01] MEDS: BUPivacaine 0.25% INJ 10 mL 20 ML INJECTION (14:41)
[2023-12-01] MEDS: lidocaine-epi 1% 20 mL INJ INJECTION (14:41)
--- NOTE | 2023-12-01 15:23 | P.OP_ITS ---
Operative Report Date of procedure: December 01, 2023 Pre-op diagnosis: Breast cancer Post-op diagnosis: Same Post-op findings: On the left axilla: Large nodes were noted to, both had the radiotracer and were excised as sentinel nodes. Left breast anatomy was unremarkable Procedure done: Left breast mastectomy, left axillary sentinel node biopsy Implants: None Specimens removed/disposition: 1. Left axillary sentinel node 2. Left breast marked short superior and long lateral 3. Left breast tail marked short superior long lateral 4. Deep margin of the left breast 5. Left breast skin Surgeon: Reed Mathew MD Coding Specialist: MONICA OR STaff Estimated blood loss: 75 Brief History: 78-year-old female with history of left breast palpable mass which was excised showing evidence of DCIS, patient underwent reexcision and apparent excision of the superior margin it was identified that she had a microinvasive component and extensive DCIS. We offered the patient a mastectomy with sentinel node biopsy. After discussion we will resume benefits patient decided to proceed. Procedure: Patient presented to the hospital in the morning and went to radiology department for lymphoscintigraphy, lymph node was identified and marked by radiology. Patient was brought into the OR. She was placed in a supine position and general anesthesia was given. Left breast was infiltrated with 1 cc of isosulfan blue. The left breast and axilla were prepped and draped in the usual sterile fashion. I then proceeded to use the gamma probe on the left axilla localized area of maximal intensity. Local anesthesia was infiltrated in the skin and a 4 cm incision was made at this level. Incision was deepened to subcutaneous tissue until the axillary fascia was identified. The gamma probe was then used once again to identify the area of villous intensity, I then sharply opened the axillary fascia revealing the axillary fat. Blue dye was noted at this level and the gamma probe identified a sentinel node, abdominal inspection of the axillary fossa all nodes were palpable, I then decided to proceed with excision of these 2 nodes, the lymph nodes were elevated using an Allis clamp and circumferentially dissected and using blunt dissection, I use electrocautery only for ligation of the vascular pedicle. Once the specimens were taken out of the body the gamma probe was used and these were identified to be sentinel nodes with both of them and had significant radiotracer and then. No residual radiotracer was noted in the axilla. No other positive clinical nodes were identified. Hemostasis was achieved. The wound was irrigated and subsequently closed in layers using #2 oh for the axillary fascia #3-0 Vicryl for the subcutaneous tissue #4-0 Monocryl for the skin. I then placed my attention on the left breast. An elliptical marking was made including the left areola. I then proceeded to make an incision using a 10 blade following this markings, total length of the incision was about 15 cm. Incision was deepened until the superficial breast fascia was opened. Hemostasis was achieved. I then proceeded to create flaps in the superior inferior medial and lateral directions using electrocautery. With the help of the skin hooks I tented the skin superiorly and then I proceeded to create the flap posterior to the superficial breast fascia. On the superior aspect of the flap was carried until was 2 cm from the level of the clavicle and no more breast tissue was then divided, on the inferior aspect I carried the flap to the level of the inframammary fold in the medial aspect to the level of the sternum and the lateral aspect to the level of the lateral edge of the pectoralis muscle. Careful consideration was taken in maintaining adequate thickness of the flap to prevent wound complications. Once all the breast tissue was in close I then proceeded to deepen the resection margins until the fascia of the pectoralis muscle was identified, I then proceeded to excise the breast tissue having the fascia of the pectoralis muscle as my deep margin. Once the breast tissue was excised it was marked with a short superior and long lateral sutures to identify orientation. The cavity was inspected, I did notice some residual breast tissue on the lateral aspect corresponding with the tail of the breast going into the axilla, this tissue was grasped with Allis clamps and was excised with electrocautery, the tissue was marked with a long lateral and short superior silk sutures. Small amount of residual breast tissue was also noted overlying the fascia of the pectoralis muscle, this was excised and sent to pathology. The wound was irrigated and hemostasis was achieved. I then placed a SHANTA drain and delivered at the level of the anterior axillary line just inferior to the breast. The SHANTA drain was fixed to the skin with #2-0 nylon. Hemostasis was once again verified, before proceeding with closure of the wound I realized that the superior flap has excessive amount of the skin that will result in very large amount of that the space, I therefore decided to resect about 1 cm of the superior edge of the wound to provide a better closure. The skin was sent with the specimen. I then closed the wound in layers using #2-0 Vicryl for the deep tissue, I took careful consideration not to include the SHANTA drain and the closure. The subcutaneous tissue tissue was closed with #3-0 Vicryl and the skin was closed with #4-0 Monocryl. Sterile dressing was applied in both the left axilla and left breast. At the end of the procedure all counts were correct, the patient tolerated well the procedure and was transferred to the PACU in stable condition.
--- NOTE | 2023-12-01 15:50 | ANE.PACU2 ---
Inpatient post-anesthesia follow up: Airway intact: Yes Vital signs: Temperature 97.7 F Pulse Rate 73 Respiratory Rate 17 Blood Pressure 158/78 Pulse Oximetry 94 Oxygen Delivery Me thod Room Air Oxygen Flow Rate 6 Fraction of Inspir ed Oxygen Hydration adequate: Yes Nausea and vomiting: No Pain level: 1 Mental status: Baseline
--- NOTE | 2023-12-01 16:00 | P.CONIM_ITS ---
Providers/Reason For Consult 2 Consulting Physician/Specialty*: Internal medicine Reason for Consult*: Medical management Attending Physician: Reed Mathew MD Primary Care Provider: Tomasz Drummond DO History of Present Illness History of Present Illness Alisha Hernandez is a 78 year old female with a past medical history significant for breast cancer, type 2 diabetes mellitus on insulin, hypertension, hypothyroidism, and multiple other comorbidities who is currently admitted postoperatively from left breast mastectomy with left axillary sentinel node biopsy. Internal medicine consulted for medical management. Patient seen and evaluated in OB room 12. She currently endorses back pain as well as postop pain. She feels like her back pain is actually worse than her surgical pain. She denies fevers, chills, nausea or emesis. Denies other new complaints. We discussed continuing most of her home medications while inpatient. Did discuss with her that we will reduce her insulin dosing as to try to avoid hypoglycemia. Will add a sliding scale correction to also try to avoid marked hyperglycemia in the setting of the postop state. Patient is agreeable. Review of Systems 2 Narrative: A complete review of systems was obtained and is negative except as stated in HPI. Medications/Allergies Home Medications Medication Instructions Recorded Confirmed Last Taken Type Disposable nebulizer circuit #1 ea 11/06/21 11/28/23 11/28/23 Rx liothyronine 5 mcg tablet 10 mcg (2 x 5 mcg) PO DAILY #180 12/20/22 11/28/23 11/30/23 Rx tabs sodium chloride 0.65 % nasal spray 2 spray intranasal Q4H PRN dry 04/08/23 11/28/23 11/28/23 Rx aerosol (Saline Mist) nasal passages/infection #44 mL furosemide 40 mg tablet (Lasix) 40 mg PO QAM PRN edema #90 tabs 05/14/23 11/28/23 11/30/23 Rx walker with seat/brakes #1 ea 08/27/23 11/28/23 11/28/23 Rx lidocaine 3 % topical cream 1 applic topical BID PRN Pain 09/09/23 11/28/23 11/28/23 History mecobalamin (vitamin B12) 500 mcg 500 mcg PO DAILY 09/09/23 11/28/23 11/28/23 History chewable tablet wmcyyfhf-sye-pcsg 18 mg-FA 400 1 tab PO DAILY 09/09/23 11/28/23 11/28/23 History mcg-calcium 500 mg-vit K 50 mcg tablet (Women's Multivitamin) pen needle, diabetic 32 gauge x #100 ea 09/30/23 11/28/23 11/28/23 Rx (UltiCare Pen Needle) levothyroxine 200 mcg tablet 200 mcg PO DAILY 10/20/23 11/28/23 11/30/23 History docusate sodium 100 mg capsule 100 mg PO BID #10 caps 11/03/23 11/28/23 11/30/23 Rx hydromorphone 2 mg tablet 2 mg PO Q6H PRN pain #20 tabs 11/03/23 11/28/23 11/30/23 Rx enalapril maleate 20 mg tablet 30 mg (1.5 x 20 mg) PO BEDTIME 30 11/05/23 11/28/23 11/30/23 Rx days #45 tabs insulin glargine 100 unit/mL (3 40 unit (0.4 mL) SUBCUT BID #72 mL 11/12/23 11/28/23 11/30/23 Rx mL) subcutaneous pen (Lantus Solostar U-100 Insulin) insulin lispro 100 unit/mL 45 unit (0.45 mL) SUBCUT TID #120 11/12/23 11/28/23 11/30/23 Rx subcutaneous pen (Humalog KwikPen mL (U-100) Insulin) neb tubing, mouth piece, hardware #1 ea 11/30/23 Unknown Rx Allergies Allergy/AdvReac Type Severity Reaction Status Date / Time tizanidine [From Zanaflex] Allergy Intermediate ADR-Itching Verified 11/26/23 10:37 albuterol Allergy ADR/ALGY-Pa Verified 12/01/23 08:35 lpitations amoxicillin Allergy na Verified 11/26/23 10:37 aspirin Allergy na Verified 11/26/23 10:37 codeine Allergy na Verified 11/26/23 10:37 fentanyl Allergy ADR-Confusi Verified 11/28/23 13:45 on gluten Allergy inflamatory Verified 11/26/23 10:37 response metformin Allergy na Verified 11/26/23 10:37 pineapple Allergy na Verified 11/26/23 10:37 psyllium Allergy sick, Verified 11/26/23 10:37 diarrhea, bloody stools sulfamethoxazole Allergy na Verified 11/26/23 10:37 [From Bactrim] trimethoprim [From Bactrim] Allergy na Verified 11/26/23 10:37 red color Allergy ADR-Hyperte Uncoded 11/26/23 10:37 nsion Current Medications Generic Name Dose Route Start Last Admin Trade Name Marvinq PRN Reason Stop Dose Admin Sodium Chloride 1,000 mls @ 30 mls/hr 12/01/23 07:30 12/01/23 07:39 Sodium Chloride 0.9% IV 12/02/23 07:29 30 mls/hr .Q24H AMIRA Administration PFSH Acute 2 PFSH: Medical History Chronic low back pain Breast cancer treated with lumpectomy and radiation Fibromyalgia Polyarthralgia Grief Multiple personality disorder Cyrus's thyroiditis (~06/2020) Diabetes mellitus with hyperglycemia, with long-term current use of insulin AB (asthmatic bronchitis) Essential (primary) hypertension Chronic bilateral thoracic back pain Lumbar disc disease with radiculopathy Surgical History History of lumpectomy of right breast (08/30/16) Right breast lumpectomy with axillary sentinel lymph node biopsy History of total bilateral knee replacement Hx of cholecystectomy Hx of vaginal hysterectomy Family History Unknown Adopted [place] in [place] Social History Smoking and tobacco/nicotine status: never used tobacco/nicotine Second hand smoke exposure: No Alcohol intake: never Substance/Drug Use: never Adopted: Yes Caregiver/support person: No Lives independently: Yes Marital status: / Number of children: 1 service: No Current occupational status: unemployed and retired Do you think of yourself as: Straight/Heterosexual Current gender identity: Female Vitals/I&O/Wt Last Vital Signs Temp 98.3 F 12/01/23 15:57 Pulse 72 12/01/23 15:57 Resp 17 12/01/23 15:57 BP 145/58 12/01/23 15:57 Pulse Ox 95 12/01/23 15:57 O2 Del Method Room Air 12/01/23 15:57 O2 Flow Rate 6 12/01/23 15:27 12/01/23 12/01/23 12/01/23 06:59 14:59 22:59 Intake Total 300 / 300 0 / 300 Output Total 75 / 75 Balance 300 / 300 -75 / 225 Weight last 48 hrs Weight 118.841 kg Physical Exam 2 Narrative: General: Patient is awake. Very pleasant. Appears fatigued. Head: Normocephalic. Atraumatic. EOM intact. Neck: No JVD. Cardiovascular: RRR. No gallops. No murmurs. Lungs: Clear to auscultation, no use of accessory muscles, no crackles or wheezes. Skin: No jaundice. No rashes. Abdomen: Normal bowel sounds, abdomen soft and nontender. Genito Urinary: Genital exam not performed since complaints not related. Rectal: Rectal exam not performed since no symptoms indicated blood loss. Extremities: No cyanosis or clubbing. Musculoskeletal: No swollen or erythematous joints. Neurological: Moves all 4 extremities. No myoclonus. 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: Patient is postop from left mastectomy with sentinel lymph node biopsy Defer postop management to general surgery (2) Diabetes mellitus with hyperglycemia, with long-term current use of insulin: Continue insulin at reduced rates while inpatient Lantus 32 units twice daily Lispro 30 units 3 times daily AC Sliding-scale insulin correction high dose Avoid hyper and hyperglycemia to promote healing Qualifiers: Diabetes mellitus type: type 2 Qualified Code(s): E11.65 - Type 2 diabetes mellitus with hyperglycemia; Z79.4 - care home (current) use of insulin (3) Hypertension: Continue home enalapril if okay with pharmacy-patient has home medications (4) Hypothyroidism: Continue home thyroid medications Plan Thank you for this consultation. Internal medicine service will follow while patient is in the hospital. 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
[2023-12-01] MEDS: insulin lispro 100 unit/1 mL 30 UNIT SUBCUT (17:24)
[2023-12-01] MEDS: docusate sodium 100 mg Capsule PO (17:25)
[2023-12-01] MEDS: insulin glargine 100 units/1 mL 32 UNIT SUBCUT (17:25)
[2023-12-01 17:33] LABS: Glucose Point of Care 264 mg/dL (70-110)
[2023-12-01] MEDS: ENALAPRIL MALEATE 5 MG 30 EACH PO (21:21)
[2023-12-01 21:29] LABS: Glucose Point of Care 410 mg/dL (70-110)
[2023-12-01] MEDS: insulin lispro 100 unit/1 mL SUBCUT (22:00)
[2023-12-02] VITALS: BP 163/75; PULSE 85; RESP 16; TEMP 36.8; O2SAT 97
[2023-12-02 03:06] VITALS: BP 178/80; PULSE 73; RESP 17; TEMP 36.7; O2SAT 98
[2023-12-02 04:00] VITALS: TEMP 36.7
[2023-12-02 05:37] LABS: Basophils % 0.2 %; Eosinophils % 0.1 %; Hematocrit 38.1 % (36-47); Lymphocytes # 1.1 10^3/uL (0.8-4.8); Lymphocytes % 8.4 %; Mean Corpuscular HGB Conc 33.9 g/dL (30-55); Mean Corpuscular Hemoglobin 30.9 pg (27-33); Mean Corpuscular Volume 91.1 fl (85-98); Mean Platelet Volume 10.4 fL (7.4-10.4); Monocytes # 1.1 10^3/uL (0.2-0.9); Monocytes % 8.4 %; Neutrophils # 10.87 10^3/uL (1.8-7.7); Neutrophils % 82.5 %; Nucleated Red Blood Cells % 0 %; Platelet Count 187 10^3/cmm (157-399); Red Blood Count 4.18 10^6/uL (3.85-5.65); Red Cell Distribution Width 13.2 % (12.1-15.1); White Blood Count 13.16 10^3/uL (3.29-11.43)
[2023-12-02 05:56] LABS: Anion Gap 17.3 (5-19); Blood Urea Nitrogen 26 mg/dL (8-23); Calcium 8.6 mg/dL (8.5-10.5); Carbon Dioxide 22 mmol/L (22-29); Chloride 101 mmol/L (98-107); Creatinine Clr Calc Pharmacy 62.1574; Glucose 229 mg/dL (65-115); Magnesium 2.2 mg/dL (1.7-2.3); Osmolality Calculated 294 mOsm/kg (285-295); Phosphorus 3.2 mg/dL (2.5-4.5); Potassium 4.3 mmol/L (3.5-5.1); Sodium 136 mmol/L (136-145)
[2023-12-02 06:05] LABS: Glucose Point of Care 146 mg/dL (70-110)
[2023-12-02] MEDS: insulin lispro 100 unit/1 mL 30 UNIT SUBCUT (07:46)
[2023-12-02 07:55] LABS: Glucose Point of Care 327 mg/dL (70-110)
[2023-12-02] MEDS: insulin lispro 100 unit/1 mL SUBCUT (08:00)
--- OUTSIDE RECORDS SUMMARY | 2023-12-02 08:04 | XMS_ITS ---
Author Name Unknown Organization [facility] Address [address] [place] [address] Care Team Providers Care Director [employer] Name Role Phone Stas Fulton MD Primary Care Provider Iván Wong [phone] Results Component Value Reference Range Notes Lumbosacral Spine AP/Lat-721 00 (Not yet reviewed by provider) Interpretation: Performing Lab: Notes/Report: [id number] [email or web address] te REASON FOR VISIT Fall Encounters Encounter Location Date Provider Diagnosis [facility] [place] [address] [place] [address] 10/22/2023 Iván Irizarry Lumbar radiculopathy M54.16 ; Lumbar pain M54.50 and Fall W19.XXXA Assessments Encounter Date Diagnosis (ICD Code) Assessment Notes Treat ment Notes Treatment Clinical Notes 10/22/2023 Lumbar radiculopathy (ICD-10 - M54.16) 10/22/2023 Lumbar pain (ICD-10 - M54.50) 10/22/2023 Fall (ICD-10 - W19.XXXA) Plan Of Treatment Pending Test Test Name Order Date Lumbosacral Spine AP/Lat-07967 Progress Notes * JULES KHOURY VDOB:[birth year] (78 yo F)Acc No.[id number]:10/22/2023 Patient:?JULES KHOURY V :1945???Age:78 Y???Sex:Female Address:[address] [place] [address] [place] [address] Subjective: * Chief Complaints: * ???Fall * Medical History:? * Surgical History:? * Hospitalization/Major Diagno stic Procedure:? * Medications:? Objective: * Vitals:? * Physical Examination:? Assessment: * Assessment: 1.?Lumbar radiculopathy - M5 4.16???2.?Lumbar pain - M54.50???3.?Fall - W19.XXXA??? Plan: * Treatment: 2.?Lumbar pain?Imaging: Lumbosacral Spine AP/Lat-79444 3.?Fall?Imaging: Lumbosacral Spine AP/Lat-85998 * Procedure Codes:? * true * Date:? Generated for Ngoc hanks/Nash/Tamyitting on:?12/02/2023 08:04 AM CDT
--- OUTSIDE RECORDS SUMMARY | 2023-12-02 08:04 | XMS_ITS ---
Author Name Unknown Organization [facility] Address [address] [place] [address] Care Team Providers Care Photonics Engineer Name Role Phone Stas Fulton MD Primary Care Provider Iván Wong Unavailable [phone] REASON FOR VISIT f/u after MRI Medications Medication SIG (Take, Route, Frequency, Duration) Notes Start Date End Date Status Omnipod DASH Pods (Gen 4) Active Lasix 40 MG 1 tablet Orally Once a day Active Vasotec 5 MG 1 tablet Orally Once a day Active Liothyronine Sodium Active Flonase Active Levemir 100 UNIT/ML as directed Subcutaneous Active Synthroid 200 MCG 1 tablet in the morn ing on an empty stomach Orally Once a day 225mcg Active Synthroid 25 MCG 1 tablet in the morn ing on an empty stomach Orally Once a day 225mcg Active HumaLOG 100 UNIT/ML as directed Subcutaneous Active Social History Tobacco Use: Social History Observation Description Date Details (start date - stop date) Never Smoker NA - NA xTobacco Use/Smoking Question Answer Notes Are you a nonsmoker Problems Problem Type SNOMED Code ICD Code Onset Dates Problem Status W/U Status Risk Notes Problem Scoliosis (047919554) Scoliosis (M41.9) Active confirmed Problem Degeneration of lumbar intervertebral disc (95227217) Disc degeneration, lumbar (M51.36) Active confirmed Vital Signs Temperature 97.6 degrees Fahrenheit 10/23/19 24 Blood pressure systolic 132 mm Hg 10/23/19 24 Blood pressure diastolic 74 mm Hg 024 Heart Rate 92 /min 10/23/2023 Respiratory Rate 18 /min 10/23/2023 Height 65 in 10/23/2023 Weight 262 lbs 10/23/2023 BMI 43.59 kg/m2 10/23/2023 Oximetry 97 % 10/23/2023 Height-cm 165.1 cm 10/23/2023 Weight-kg 118.84 kg 10/23/2023 Encounters Encounter Location Date Provider Diagnosis [facility] [place] [address] [address] 10/23/2023 Iván Irizarry Lumbar radiculopathy M54.16 ; Scoliosis M41.9 ; Disc degeneration, lumbar M51.36 and Lumbar stenosis M48.061 Assessments Encounter Date Diagnosis (ICD Code) Assessment Notes Treat ment Notes Treatment Clinical Notes 10/23/2023 Lumbar radiculopathy (ICD-10 - M54.16) 10/23/2023 Scoliosis (ICD-10 - M41.9) 10/23/2023 Disc degeneration, lumbar (ICD-10 - M51.36) 10/23/2023 Lumbar stenosis (ICD-10 - M48.061) 10/23/2023 Other The lumbar imaging was reviewed and discussed with the patient. She was reassured there is nothing on the imaging to justify surgery at this time. Her symptoms are most likely irritation of existing issues. The patient was offered a referral for more physical therapy to see if therapy can get her to a more comfortable place. She says that she has home exercise equipment and will do home exercise, heat application and topical ointments. If her pain increases she will call and return for another discussion. SOPHIA reviewed I Suki Redding LPN am scribing for, and in the presence of Iván Irizarry MD. I, Iván Irizarry, personally performed the services described in this documentation, as scribed by Suki Redding LPN in my presence, and it is both accurate and complete. Plan Of Treatment Treatment Notes Assessment Notes Other The lumbar imaging was reviewed and discussed with the patient. She was reassured there is nothing on the imaging to justify surgery at this time. Her symptoms are most likely irritation of existing issues. The patient was offered a referral for more physical therapy to see if therapy can get her to a more comfortable place. She says that she has home exercise equipment and will do home exercise, heat application and topical ointments. If her pain increases she will call and return for another discussion. SOPHIA reviewed I Suki Redding LPN am scribing for, and in the presence of Iván Irizarry MD. I, Iván Irizarry, personally performed the services described in this documentation, as scribed by Suki Redding LPN in my presence, and it is both accurate and complete. 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 f/u after MRI. * HPI: ???Provider Note:? Pleasant patient presents to discuss the results of imaging previously ordered. She was seen last month and had an MRI of the lumbar spine ordered for complaints of back pain. The patient says she had a fall in August of this year. She says she fell forward while bending over and heard a tearing and then a pop in her back. She went to her PCP who prescribed Dilaudid 2 mg every 8 hours as needed and also recommended physical therapy. The patient says she was only able to do hot and cold packs. She also had chiropractor visits and massage therapy. The patient says her symptoms did improve, however the patient states she had another fall a couple of days before today's appointment, She says she fell in her shower and is now having increased low back pain and weakness in her legs. She called the clinic after the fall and an x-ray of the lumbar spine was ordered to review with the MR imaging today. The MRI of the lumbar spine shows the same degenerative changes, bony spurring and mild stenosis as previous imaging in 2021. No significant changes. The x-ray of the lumbar spine appears stable. There is scoliosis centered at the L2-3 level that is unchanged from previous imaging. * ROS:?General/Constitutional:?Denies?Chills.?Denies?Fatigue/Tiredness.?Denies?Fever.?Denies?Headache.?Respiratory:?Denies?Breathing problems.?Denies?Cough.?Denies?Shortness of breath.?Denies?Wheezing.?Cardiovascular:?Denies?Chest pain.?Denies?Cyanosis.?Denies?Dizziness.?Denies?Palpitations.?Denies?Swelling in hands/feet.?Gastrointestinal:?Denies?Abdominal pain.?Denies?Change in bowel habits.?Denies?Nausea.?Genitourinary:?Urinary Incontinence?denies.?Musculoskeletal:?Comments?See HPI for details.?Neurologic:?Comments?See HPI for details.? * Medical History:?Measles, Mu mps, Chicken Pox, Whooping Cough, Pneumonia, Heart Disease, Arthritis, Blood/ Plasma Transfusion, Back trouble, High Blood pressure, Asthma, Hives, Bronchitis, Mitral Valve Prolaspe, Sjogren syndrome, Diabetes mellitus, Fibromyalgia, Myofascial pain syndrome, Osteoarthritis. * Surgical History:?Left Shoul noel x 2 , Cholecystectomy 1972, SIDNEY 1976, Knee 2009, Total Knee Replacement , Right Breast . * Family History:? Patient does not know. * Social History:?Tobacco Use:?xTobacco Use/Smoking?Are you a?nonsmoker.? * Medications:?Taking Synthroi d 25 MCG Tablet 1 tablet in the morning on an empty stomach Orally Once a day , Notes to Pharmacist: 225mcg, Taking Synthroid 200 MCG Tablet 1 tablet in the morning on an empty stomach Orally Once a day , Notes to Pharmacist: 225mcg, Taking Levemir 100 UNIT/ML Solution as directed Subcutaneous , Taking HumaLOG 100 UNIT/ML Solution as directed Subcutaneous , Taking Vasotec 5 MG Tablet 1 tablet Orally Once a day , Taking Lasix 40 MG Tablet 1 tablet Orally Once a day , Taking Flonase , Taking Liothyronine Sodium , Taking Omnipod DASH Pods (Gen 4) , Medication List reviewed and reconciled with the patient Objective: * Vitals:?Ht: 65 in, Wt:262lbs , Wt-k.84 kg, BMI:43.59Index, Temp:97.6F, BP:132/74mm Hg, HR:92/min, RR:18/min, Oxygen sat %:97%, Ht-cm: 165.1 cm. * Examination: ???General Examination: ?GENERAL APPEARANCE:?alert, well hydrated, in no distress.?EYES:?normal conjunctiva.?SKIN:?warm and dry.?HEART:?normal heart rate.?LUNGS:?normal respirations.?MUSCULOSKELETAL:?range of motion not assessed, no focal strength deficits, patchy sensation changes in the bilateral lower extremities.?EXTREMITIES:?moves all extremities well, patient is in a wheelchair.?NEUROLOGIC:?alert and oriented, cerebellar function normal, cognitive exam grossly normal.?PSYCH:?alert, oriented, cognitive function intact, cooperative with exam, good eye contact, mood/affect full range, speech clear.? Assessment: * Assessment: 1.?Lumbar radiculopathy - M5 4.16 (Primary)???2.?Scoliosis - M41.9???3.?Disc degeneration, lumbar - M51.36???4.?Lumbar stenosis - M48.061??? Plan: * Treatment: * Procedure Codes:?3078F DIAST BP < 80 MM HG, 3075F SYST BP GE 130 - 139MM HG * Follow Up:?Pt will call * Billing Information: * Visit Code:? * Procedure Codes:? 3078F DIAST BP < 80 MM HG. 3075F SYST BP GE 130 - 139MM HG. Care Plan Details* * Sign off status: Completed true * Provider:?Iván Irizarry MD Date:?2023 Generated for Ngoc hanks/Nash/eTransmitting on:?12/02/2023 08:03 AM CDT History and Physical Notes * Examination Category Sub-Category Detail Notes General Examination GENERAL APPEARANCE: alert, w ell hydrated, in no distress EYES: normal conjunctiva HEART: normal heart rate LUNGS: normal respirations NEUROLOGIC: alert and oriented, cerebellar function normal, cognitive exam grossly normal SKIN: warm and dry EXTREMITIES: moves all extremitie s well, patient is in a wheelchair MUSCULOSKELETAL: range of motion not assessed, no focal strength deficits, patchy sensation changes in the bilateral lower extremities PSYCH: alert, oriented, cog nitive function intact, cooperative with exam, good eye contact, mood/affect full range, speech clear
--- OUTSIDE RECORDS SUMMARY | 2023-12-02 08:04 | XMS_ITS ---
Author Name Unknown Organization [facility] Address [address], [place] [id number] Care Team Providers Care Classifier Tender Name Role Phone Terrence Patel Unavailable [phone] Gail HATFIELD, Evan Unavailable Unavailable ALLERGIES Allergen (clinical drug ingredient) Drug/Non Drug Allergy documented on EMR Reaction Allergy Type Onset Date Status aspirin Aspirin Unknown Drug Allergy Active metformin Metformin Unknown Drug Allergy Active Penicillin Unknown Drug Allergy Active REASON FOR VISIT Bariatric surgery consult, Medical weight loss SOCIAL HISTORY Tobacco Use: Social History Observation Description Date Details (start date - stop date) Never Smoker NA - NA Sex Assigned At : Social History Observation Description Sex Assigned At Unknown Tobacco Use/Smoking Question Answer Notes Smoking Status: nonsmoker Alcohol Screen Question Answer Notes Did you have a drink containing alcohol in the p ast year? 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) Active confirmed 622557581 Problem High cholesterol (E78.00) Active confirmed 82071068 Problem High triglycerides (E78.1) Active confirmed 857584065 Problem TOMI (obstructive sleep apnea) (G47.33) Active confirmed 90255797 Problem 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) Active confirmed 650696244 Problem Gastroesophageal reflux disease, unspecified whether esophagitis present (K21.9) Active confirmed 291143387 Problem Acute arthritis (M19.90) Active confirmed 63209447 Problem History of depression (Z86.59) Active confirmed 488433269 Problem Morbid obesity (E66.01) Active confirmed 016507081 VITAL SIGNS Blood pressure systolic 152 mm Hg 11/22/19 23 Blood pressure diastolic 83 mm Hg 023 Height 62.50 in 11/21/2022 Weight 266.6 lbs 11/21/2022 BMI 47.98 kg/m2 11/21/2022 Oximetry 97 % 11/21/2022 Encounters Encounter Location Date Provider Diagnosis [facility] [place] [address] [place] [address] 11/21/2022 Terrence Patel Morbid obesity E66.0 1 ; BMI 45.0-49.9, adult Z68.42 ; Hypertension, unspecified type I10 ; Type 2 diabetes mellitus without complications E11.9 ; marine oil terminal superintendent (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9, adult (ICD-10 - Z68.42) 11/21/2022 Hypertension, unspecified type (ICD-10 - I10) 11/21/2022 Type 2 diabetes mellitus without complications (ICD-10 - E11.9) 11/21/2022 marine oil terminal superintendent (current) use of insulin (ICD-10 - Z79.4) 11/21/2022 High cholesterol (ICD-10 - E78.00) 11/21/2022 High triglycerides (ICD-10 - E78.1) 11/21/2022 TOMI (obstructive sle ep apnea) (ICD-10 - G47.33) 11/21/2022 Hx of varicose veins (ICD-10 - Z86.79) 11/21/2022 Low back derangement syndrome (ICD-10 - M53.86) 11/21/2022 Lumbar discogenic pa in syndrome (ICD-10 - M51.26) 11/21/2022 Gastroesophageal ref lux disease, unspecified whether esophagitis present (ICD-10 - K21.9) 11/21/2022 Acute arthritis (ICD -10 - M19.90) 11/21/2022 History of irregular menstrual bleeding (ICD-10 - Z87.42) 11/21/2022 History of depressio n (ICD-10 - Z86.59) 11/21/2022 Abnormal LFTs (ICD-1 0 - R79.89) PLAN OF TREATMENT Medication Information is temporarily u navailable. Future Test Test Name Order Date Comprehensive Metabolic Panel 11/21/2022 CBC 11/21/2022 H.PYLORI 11/21/2022 Next Appt Details Follow Up: prn, Reason: Progress Notes * Examination Category Sub-Category Detail Notes General Examination GENERAL APPEARANCE: well dev eloped, well nourished, in no acute distress. She is in a wheelchair today. HEENT normocephalic, atrau matic EYES: sclera non-icteric EARS: hearing grossly inta ct NOSE: nares patent, no dis charge NECK/THYROID: no visible masses or obvious thryromegaly CARDIOVASCULAR EXAM: hemodynamically sta ble, good global perfusion CHEST: no obvious deformity RESPIRATORY: normal respiratory e ffort, no increased work of breathing ABDOMEN: non-distended, no vi sible hernia. Moderate central obesity. Large RUQ scar. Lower midline scar. NEUROLOGIC: grossly intact, move s all extremeties SKIN: no suspicious lesion s or visible rashes EXTREMITY no significant edema or deformity MUSCULOSKELETAL: no obvious swelling or deformity PSYCH: alert, oriented, moo d appropriate, normal attention span, normal concentration ORAL CAVITY: good dentition History and Physical Notes * HPI (History of Present Illness) Category Sub-Category Detail Notes Bariatric Diet History: Type of Weight L oss Program: Weight Watchers, Physician Supervised Diet, Prescription Diet Pills, Behavior Modification, Unsupervised Diets & Other Patient Profile: Procedure of Interest: Gastric Bypass, Gastric Sleeve Present Age:: 77 Age first overweight:: 27 Current Weight:: 266.6 Main reason for wanting to l ose weight:: Improved quality of life, Improve health, improve diabetes Exercise: How many times per week do you e xercise?: 2 days per week What kind of exercise?: Bike What limits your exercising?: Joint Pain Physical Limitations Associa iris With Obesity: Which activities do you have difficulty with?: Climbing Stairs, Caring for Personal Needs, Tying Shoelaces, Lifting Objects from Floor Eating Habits: Do you snack often ( or binge) on sweets, candies or sugary beverages?: No Do you eat larger portions than normal w eight people eating the same meal?: No Do you have any other bad eating habits? : No Psychological History: Have you ever or are you now under treatment for alchol abuse or addiction?: No Have you ever or are you now under treat ment for drug abuse or addiction?: No Have you ever or are you now under treat ment for psychological disorders?: Yes ?Psychological disorders:: Depression, O ther PTSD Sleep Issues: [place] Sleepiness Score:: 3 Likley to fall asleep in the following situations:: Sitting down to rest in the afternoon Have you ever been diagnosed with sleep apnea?: Yes ?Do you use a CPAP machine?: Yes Does your partner say you quit breathing at night?: Yes Do you wake up in the morning with a hea dache?: Yes Do you have coronary artery disease (CAD )?: No Do you snore at night?: Yes Do you wake up daily with a dry mouth or sore throat?: Yes Are you excessively forgetful?: Yes
--- OUTSIDE RECORDS SUMMARY | 2023-12-02 08:04 | XMS_ITS | Patient Health Record ---
Author Name Unknown Organization [facility] Address [address] [place] [address] Care Team Providers Care Asbestos Removal Supervisor Name Role Phone Stas Fulton MD Primary Care Provider Iván Wong Unavailable [phone] Andrae Cabrera Unavailable [phone] Reason For Referral Reason Eval and Treat BIW-T IW x 6-8 weeks PT for strengthening, mobility and improvement of discomfort Diagnosis 1 Lumbar radiculopathy (M54.16) Diagnosis 2 Thoracic radiculopat hy (M54.14) Diagnosis 3 Kyphosis (M40.209) Diagnosis 4 Hip pain (M25.559) Referral Organization [facility] [place] Referring Provider First Name Andrae Referring Provider Last Name Rick Referring Provider Speciality Neurosurge Referred Provider Physical Therapy Neil Ramirezs Referred Provider Specialty Physical The rapist Referral Priority Routine Medications Medication SIG (Take, Route, Frequency, Duration) Notes Start Date End Date Status Levemir 100 UNIT/ML as directed Subcutaneous Active Synthroid 200 MCG 1 tablet in the morn ing on an empty stomach Orally Once a day 225mcg Active Synthroid 25 MCG 1 tablet in the morn ing on an empty stomach Orally Once a day 225mcg Active Omnipod DASH Pods (Gen 4) Active Lasix 40 MG 1 tablet Orally Once a day Active Vasotec 5 MG 1 tablet Orally Once a day Active HumaLOG 100 UNIT/ML as directed Subcutaneous Active Liothyronine Sodium Active Flonase Active Social History Tobacco Use: Social History Observation Description Date Details (start date - stop date) Never Smoker NA - NA xTobacco Use/Smoking Question Answer Notes Are you a nonsmoker Alcohol Screen (Audit-C) Question Answer Notes Did you have a drink containing alcohol in the p ast year? No Points 0 Interpretation Negative PHQ-9 Question Answer Notes Little interest or pleasure in doing things Not at all Feeling down, depressed, or hopeless Nearly ever y day Trouble falling or staying asleep, or sleeping t oo much Nearly every day Feeling tired or having little energy Nearly stefania ry day Poor appetite or overeating Not at all Feeling bad about yourself, or that you are a failure, or have let yourself or your family down Several days Trouble concentrating on thi ngs, such as reading the newspaper or watching television Several days Moving or speaking so slowly that other people could have noticed. Or the opposite ? being so fidgety or restless that you have been moving around a lot more than usual Several days Thoughts that you would be b donald off , or of hurting yourself in some way Not at all Total Score 12 Interpretation Moderate Depression Problems Problem Type SNOMED Code ICD Code Onset Dates Problem Status W/U Status Risk Notes Problem 06244706 Other chronic pain (G89.29) Active confirmed Problem Lumbar radiculopathy (803724893) Lumbar radiculopathy (M54.16) Active confirmed Problem Kyphosis (985346490) Kyphosis (M40.209) Active confirmed Problem Scoliosis (921977309) Scoliosis (M41.9) Active confirmed Problem Hip pain (42664198) Hip pain (M25.559) Active confirmed Problem Degeneration of lumbar intervertebral disc (43940854) Degenerative disc disease, lumbar (M51.36) Active confirmed Problem Degeneration of lumbar intervertebral disc (51849415) Disc degeneration, lumbar (M51.36) Active confirmed Vital Signs Heart Rate 92 /min 10/23/2023 Temperature 97.6 degrees Fahrenheit 10/23/2023 Respiratory Rate 18 /min 10/23/2023 Oximetry 97 % 10/23/2023 Height-cm 165.1 cm 10/23/2023 Blood pressure diastolic 74 mm Hg 10/23/2023 Weight-kg 118.84 kg 10/23/2023 Height 65 in 10/23/2023 Blood pressure systolic 132 mm Hg 10/23/2023 Weight 262 lbs 10/23/2023 BMI 43.59 kg/m2 10/23/2023 Encounters Encounter Location Date Provider Diagnosis [facility] [place] [address] [place] [address] 07/24/2023 Andrae Cabrera Lumbar radiculopathy M54.16 ; Degenerative disc disease, lumbar M51.36 and Hip pain M25.559 [facility] [address] [place] [address] 09/10/2023 nAdrae Cabrera Lumbar radiculopathy M54.16 ; Degenerative disc disease, lumbar M51.36 and Hip pain M25.559 [facility] [address] [place] [address] 10/23/2023 Iván Irizarry Lumbar radiculopathy M54.16 ; Scoliosis M41.9 ; Disc degeneration, lumbar M51.36 and Lumbar stenosis M48.061 [facility] [address] [place] [address] 08/05/2023 Andrae Cabrera Lumbar radiculopathy M54.16 ; Thoracic radiculopathy M54.14 ; Hip pain M25.559 and Kyphosis M40.209 [facility] [address] [place] [address] 10/22/2023 Iván Irizarry Lumbar radiculopathy M54.16 ; Lumbar pain M54.50 and Fall W19.XXXA Assessments Encounter Date Diagnosis (ICD Code) Assessment Notes Treatment Notes Treatment Clinical Notes 08/05/2023 Lumbar radiculopathy (ICD-10 - M54.16) 08/05/2023 Thoracic radiculopathy (ICD-10 - M54.14) 07/24/2023 Lumbar radiculopathy (ICD-10 - M54.16) 07/24/2023 Degenerative disc disease, lumbar (ICD-10 - M51.36) 47 minutes spent with over 50% spent in consultation and coordination of care. Patient certainly has degenerative changes noted in her back as well as spinal stenosis as mentioned by CT report. Further workup and treatment discussed with patient stating that she is not sure how she would like to proceed. States that her clearing supervisor will soon put her on anti-inflammatory and she is interested in if this will offer her improvement of her symptoms. I discussed the usual workup and progression of medications, then physical therapy or customer care assistant followed by injections or surgery. Patient states that she is completed everything but the surgery as she has tried injections in the past without significant lasting results. I discussed that we would be happy to order further imaging to include MRI to better plan for her treatment with patient declining at this time. States that she would like to consider how she would like to proceed and is aware of her options. Signs and symptoms of worsening and the need to follow-up with occur discussed with understanding verbalized. She will call us when she has made a decision of how she would like to proceed with her workup and/or treatment. 09/10/2023 Lumbar radiculopathy (ICD-10 - M54.16) 10/23/2023 Lumbar radiculopathy (ICD-10 - M54.16) 10/23/2023 Scoliosis (ICD-10 - M41.9) 10/22/2023 Lumbar radiculopathy (ICD-10 - M54.16) 09/10/2023 Degenerative disc disease, lumbar (ICD-10 - M51.36) 35 minutes spent with over 50% spent in consultation and coordination of care. Patient here today reporting worsening pain after traumatic incident of bending over, falling and hearing various noises with increase in pain. She certainly has degenerative changes noted on her prior imaging. Her pain has worsened since her last appointment she states. She has been taking her Dilaudid as prescribed by her primary care. I discussed again the usual workup and treatment with patient again stating that she has tried all of these in the past. When I discussed further imaging patient is satisfied with this suggestion and I will order up-to-date L-spine x-ray as well as MRI to better plan her treatment and workup her symptoms. Since symptoms of worsening and the need to follow-up if they occur discussed with understanding verbalized. Patient is to follow-up after imaging. 10/22/2023 Lumbar pain (ICD-10 - M54.50) 10/23/2023 Disc degeneration, lumbar (ICD-10 - M51.36) 08/05/2023 Hip pain (ICD-10 - M25.559) 07/24/2023 Hip pain (ICD-10 - M25.559) 08/05/2023 Kyphosis (ICD-10 - M40.209) 09/10/2023 Hip pain (ICD-10 - M25.559) 10/23/2023 Lumbar stenosis (ICD-10 - M48.061) 10/22/2023 Fall (ICD-10 - W19.XXXA) 10/23/2023 Other The lumbar imaging was reviewed [...] will call and return for another discussion. ROS reviewed I Suki Redding LPN am scribing for, and in the presence of Iván Irizarry MD. I, Iván Irizarry, personally performed the services described in this documentation, as scribed by Suki Redding LPN in my presence, and it is both accurate and complete. Plan Of Treatment Pending Test Test Name Order Date Lumbosacral Spine AP/Lat-84895 4 Lumbosacral Spine AP/Lat-72258 4 MRI Lumbar Spine w/o Cont-[id number] 09/10/19 24 MRI Lumbar Spine w/o Cont-09127 10/09/19 24 MRI Thoracic Spine w/o Cont-34222 2019 MRI Thoracic Spine w/o Cont-68571 2019 Schedule Confirmation 10/09/2023 Schedule Confirmation 10/09/2023 [facility] Lumbosacral Spine AP/Lat - 65085 10/08 [facility] Lumbosacral Spine AP/Lat - 82467 03/2023 Insurance Providers Payer Name Payer Address Payer Phone Subscriber Number Group Number Insured Name Patient Relationship to Insured Coverage Start Date Coverage End Date [place] [address] [place] [phone] [id number] JULES KHOURY Self - patient is the insured [facility] Medicare Supplement [address] [place] [address] [id number] JULES KHOURY Self - patient is the insured Medical (General) History Medical History History ICD Code Measles Mumps Chicken Pox Whooping Cough Pneumonia Heart Disease Arthritis Blood/ Plasma Transfusion Back trouble High Blood pressure asthma hives bronchitis Mitral Valve Prolaspe sjogren syndrome diabetes mellitus fibromyalgia myofascial pain syndrome Osteoarthritis Surgical History Surgery Date(Month/Year) Left Shoulder x 2 Cholecystectomy 1973 SIDNEY 1977 Knee 2010 Total Knee Replacement Right Breast
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
--- OUTSIDE RECORDS SUMMARY | 2023-12-02 08:04 | XMS_ITS | Continuity of Care Document ---
Author Name Unknown Organization [facility] Address [address] [place] [address]- Care Team Providers Care Racking Machine Operator Name Role Phone Stas Fulton MD Primary Care Physician [phone] Encounter [employer] Number [id number] Date(s): 08/26/23 - 08/27/23 [facility] [address], [place] [address] Discharge Disposition: .Discharge to Home (Routine) Attending Physician: Stas Mckeon MD Allergies, Adverse Reactions, Alerts Substance Reaction Severity Status codeine Active amoxicillin Active aspirin Active psyllium Swelling Severe Active Thiopental Sodium 1 Active Gluten Active metFORMIN Active Pineapple Active Farxiga Active 1sodium pentothal Assessment and Plan Future Appointments Appointment Date:11/04/2023 10:30:00 AM Scheduled Provider:[facility] Chahal [facility] Interview Appointment Date:02/17/2024 11:30:00 AM Scheduled Provider:Emerson Murphy MD [facility]:Established Patient Future Scheduled Tests Laboratory* Helicobacter Pylori Antigen, Stool 07/29/23 * Celiac Disease Evaluatr W/IgA 07/29/23 * TSH w Reflex FT4 07/29/23 Medications benzonatate 100 mg oral capsule Refill(s) 0 Start Date: 07/29/23 Status: Ordered Dexcom Dexcom, Refills(s) 0, Supply Start Date: 07/29/23 Status: Ordered diphenhydrAMINE 25 mg oral tablet 25 Unknown, 1 Refill(s), Refill(s) 0 Start Date: 07/29/23 Status: Ordered enalapril 5 mg oral tablet 2.5 mg = 0.5 tab, By mouth, Daily, Refill(s) 0 Start Date: 05/28/15 Status: Ordered Flonase 50 mcg/inh nasal spray Refill(s) 0 Start Date: 07/29/23 Status: Ordered furosemide 40 mg oral tablet 40 mg, By mouth, Daily, # 30 tab, Refill(s) 1, other, TAB Start Date: 06/04/16 Status: Ordered Humalog () SubQ, Refill(s) 0 Start Date: 10/02/20 Status: Ordered hydrocortisone 2.5% topical cream Refill(s) 0 Start Date: 07/29/23 Status: Ordered levalbuterol 1.25 mg/0.5 mL inhalation solution Refill(s) 0 Start Date: 07/29/23 Status: Ordered liothyronine 25 mcg oral tablet 25 mcg = 1 tab, By mouth, Daily, Refill(s) 0 Start Date: 10/02/20 Status: Ordered Miscellaneous (Medication/DME/supply) 88 EA, USE 2 SPRAYS intranasally EVERY 4 HOURS NEEDED FOR dry nasal passages or infection, Refills(s) 0, Supply Start Date: 07/29/23 Status: Ordered Ocuvite Lutein By mouth, Daily, Refill(s) 0 Start Date: 01/04/16 Status: Ordered Omni Pod 5 Omni Pod 5, Refills(s) 0, Supply Start Date: 07/29/23 Status: Ordered Synthroid 175 mcg (0.175 mg) oral tablet 175 mcg = 1 tab, By mouth, Daily, # 30 tab, Refill(s) 0, other, TAB Start Date: 05/31/15 Status: Ordered Vasotec 20 mg oral tablet 1 Refill(s), Refill(s) 0 Start Date: 07/29/23 Status: Ordered Vitamin D3 (cholecalciferol) By mouth, Refill(s) 0 Start Date: 02/10/15 Status: Ordered Problem List Condition Confirmation Course Effective Dates Status H ealth Status Informant Elevated transaminase level Confirmed Active Hypertension, essential Confirmed Active Hypothyroidism Confirmed Active Breast cancer Confirmed Active Goiter, nontoxic, multinodular Confirmed Active Obesity Confirmed Active Intolerance to cold Confirmed Active Diabetes mellitus, type 2 Confirmed Active Procedures Procedure Date Related Diagnosis Body Site Status appy Completed arthroscopic knee surg Co mpleted nelson TKA Completed jluis Completed ctr Completed D & C Completed foot sx Completed hyst Completed Right breast lumpoectomy 201 7--breast cancer. Completed Right ovary removal Compl eted Tonsillectomy Completed Social History Social History Type Response Smoking Status Never smoker; Smokel ess tobacco use: Never; Has the patient smoked in the last 365 days, even once? No entered on: 07/29/23 Sex Female Patient Care team information Care Team Personnel Name: Stas Fulton MD Position: 2 Restricted Providers Member Role: Primary Care Physician Address: Address: [address] [place] [address]- Care Team Related Persons Name: Stas Lee
--- OUTSIDE RECORDS SUMMARY | 2023-12-02 08:05 | XMS_ITS | Patient Health Record ---
Author Name Unknown Organization [facility] Address [address], [place] [id number] Care Team Providers Care Account Resolution Expert Name Role Phone Terrence Patel Unavailable [phone] Gail HATFIELD, Evan Unavailable Unavailable ALLERGIES Allergen (clinical drug ingredient) Drug/Non Drug Allergy documented on EMR Reaction Allergy Type Onset Date Status aspirin Aspirin Unknown Drug Allergy Active metformin Metformin Unknown Drug Allergy Active Penicillin Unknown Drug Allergy Active REASON FOR REFERRAL No Information SOCIAL HISTORY Tobacco Use: Social History Observation [...] W/U Status Risk SNOMED Code Notes Problem TOMI (obstructive sleep apnea) (G47.33) Active confirmed 12217430 Problem Type 2 diabetes mellitus without complications (E11.9) Active confirmed 538934995 Problem CHCF (current) use of insulin (Z79.4) Active confirmed 660063958 Problem High triglycerides (E78.1) Active confirmed 203295410 Problem Acute arthritis (M19.90) Active confirmed 08397117 Problem Morbid obesity (E66.01) Active confirmed 215302936 Problem History of depression (Z86.59) Active confirmed 379197446 Problem High cholesterol (E78.00) Active confirmed 16873575 Problem 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) Active confirmed 182835898 Problem BMI 45.0-49.9, adult (Z68.42) Active confirmed 253672681 Problem Hypertension, unspecified type (I10) Active confirmed 58347564 Problem Gastroesophageal reflux disease, unspecified whether esophagitis present (K21.9) Active confirmed 689779598 PLAN OF TREATMENT Future Test Test Name Order Date Comprehensive Metabolic Panel 11/21/2022 CBC 11/21/2022 H.PYLORI 11/21/2022 Insurance Providers Payer Name Payer Address Payer Phone Subscriber Number Group Number Insured Name Patient Relationship to Insured Coverage Start Date Coverage End Date Medicare Part B [address] [facility] [place]KEY [place] [id number] Alisha Hernandez Self - patient is the insured [facility] [address] [facility] [place] [address] [id number] PLAN C Alisha Hernandez Self - patient is the insured MEDICAL (GENERAL) HISTORY Medical History History ICD Code Hypertension Diabetes Insulin Dep High Cholesterol High Triglycerides Sleep Apnea/Bypap Varicose Veins Low Back Syndrome Lumbar Disc Disorder Gallstones GERD H-Pylori Arthritis Irregular/Heavy Menstrual Periods Celiac Disease Depression Fibromyalgia Cyrus Asthma Surgical History Surgery Date(Month/Year) Cataract Surgery OU 2022 Lt Knee Replacement 2012 Lumpectomy 2016 Gallbladder 1970 TIA 195 Hysterectomy 1974 Hospitalization History Reason Date(Month/Year) See surgical hx
--- NOTE | 2023-12-02 08:09 | P.DS_ITS ---
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 Patient has been doing well overnight no significant issues this morning, pain is well-controlled, no evidence of bleeding, SHANTA drain has put out about 150 cc of serosanguineous fluid. Hemoglobin stable. Physical Exam Chest: OTHER: Left breast surgical incision is covered with dressing which is clean dry and intact, axilla appears clean and dry. SHANTA drain with serosanguineous effluent. Discharge Data Studies Completed and Pending Completed Studies During Hospitalization Category Date Time Status NM sentinel node inject [id number] Routine Nuc Med 12/01/23 07:41 Completed Pending at discharge Category Date Time Status Pathology: Surgical [PTH] Routine Pth 12/01/23 14:44 Received Radiology Impressions [place] Node 12/01/23 07:41 IMPRESSION: LEFT [place] lymph node injection with sentinel node marked prior to surgery. Laboratory Results WBC 13.16 10^3/uL (3.29-11.43) H 12/02/23 05:31 RBC 4.18 10^6/uL (3.85-5.65) 12/02/23 05:31 Hgb 12.90 g/dL (11.27-16.99) 12/02/23 05:31 Hct 38.1 % (36-47) 12/02/23 05:31 MCV 91.1 fl (85-98) 12/02/23 05:31 MCH 30.9 pg (27-33) 12/02/23 05:31 MCHC 33.9 g/dL (30-55) 12/02/23 05:31 RDW 13.2 % (12.1-15.1) 12/02/23 05:31 Plt Count 187 10^3/cmm (157-399) 12/02/23 05:31 MPV 10.4 fL (7.4-10.4) 12/02/23 05:31 Neut % (Auto) 82.5 % 12/02/23 05:31 Lymph % (Auto) 8.4 % 12/02/23 05:31 [place] % (Auto) 8.4 % 12/02/23 05:31 Eos % (Auto) 0.1 % 12/02/23 05:31 Baso % (Auto) 0.2 % 12/02/23 05:31 Neut # (Auto) 10.87 10^3/uL (1.8-7.7) H 12/02/23 05:31 Lymph # (Auto) 1.1 10^3/uL (0.8-4.8) 12/02/23 05:31 [place] # (Auto) 1.1 10^3/uL (0.2-0.9) H 12/02/23 05:31 Eos # (Auto) 0.0 10^3/uL (0.0-0.8) 12/02/23 05:31 Baso # (Auto) 0.0 10^3/uL (0.0-0.1) 12/02/23 05:31 Nucleated RBC % (auto) 0 % 12/02/23 05:31 Nucleated RBCs # 0.0 /100WBC 12/02/23 05:31 Sodium 136 mmol/L (136-145) 12/02/23 05:31 Potassium 4.3 mmol/L (3.5-5.1) 12/02/23 05:31 Chloride 101 mmol/L (98-107) 12/02/23 05:31 Carbon Dioxide 22 mmol/L (22-29) 12/02/23 05:31 Anion Gap 17.3 (5-19) 12/02/23 05:31 BUN 26 mg/dL (8-23) H 12/02/23 05:31 Creatinine 0.9 mg/dL (0.5-0.9) 12/02/23 05:31 GFR Calculation Not Reportable 12/02/23 05:31 Glucose 229 mg/dL (65-115) H 12/02/23 05:31 POC Glucose 327 mg/dL (70-110) H 12/02/23 07:44 Calculated Osmolality 294 mOsm/kg (285-295) 12/02/23 05:31 Calcium 8.6 mg/dL (8.5-10.5) 12/02/23 05:31 Phosphorus 3.2 mg/dL (2.5-4.5) 12/02/23 05:31 Magnesium 2.2 mg/dL (1.7-2.3) 12/02/23 05:31 Vitals Last Vital Signs Temp 98.1 F 12/02/23 04:00 Pulse 73 12/02/23 03:06 Resp 17 12/02/23 03:06 BP 178/80 12/02/23 03:06 Pulse Ox 98 12/02/23 03:06 O2 Del Method CPAP 12/02/23 03:06 O2 Flow Rate 6 12/01/23 15:27 Discharge Plan Discharge Patient Disposition: Home Condition: Stable Prescriptions: New hydromorphone [Dilaudid] 2 mg tablet 2 mg PO Q6H PRN (Reason: pain) Qty: 20 0RF polyethylene glycol 3350 [Miralax] 17 gram powder in packet 17 g PO DAILY 4 Days Qty: 5 0RF Continued Women's Multivitamin 18 mg-400 mcg- 500 mg-50 mcg tablet 1 tab PO DAILY lidocaine 3 % cream 1 applic topical BID PRN (Reason: Pain) mecobalamin (vitamin B12) 500 mcg tablet,chewable 500 mcg PO DAILY (DME) Disposable nebulizer circuit See Rx Instructions .ROUTE .MEDSUPPLY Qty: 1 2RF Rx Instructions: As directed Saline Mist 0.65 % aerosol,spray 2 spray intranasal Q4H PRN (Reason: dry nasal passages/infection) Qty: 44 0RF liothyronine 5 mcg tablet 10 mcg PO DAILY Qty: 180 3RF Rx Instructions: Take two tablets by mouth daily at noon. furosemide [Lasix] 40 mg tablet 40 mg PO QAM PRN (Reason: edema) Qty: 90 1RF (DME) walker with seat/brakes See Rx Instructions .Route .MEDSUPPLY Qty: 1 0RF Rx Instructions: As directed, length of need 99 months (DME) pen needle, diabetic [UltiCare Pen Needle] 32 gauge x 5/32 needle See Rx Instructions .ROUTE .COMPLEX Qty: 100 1RF Dose Instruction: USE DIRECTED Rx Instructions: USE DIRECTED enalapril maleate 20 mg tablet 30 mg PO BEDTIME 30 Days Qty: 45 5RF insulin glargine [Lantus Solostar U-100 Insulin] 100 unit/mL (3 mL) insulin pen 40 unit SUBCUT BID Qty: 72 1RF insulin lispro [Humalog KwikPen Insulin] 100 unit/mL insulin pen 45 unit SUBCUT TID Qty: 120 1RF (DME) neb tubing, mouth piece, hardware See Rx Instructions .Route .MEDSUPPLY Qty: 1 0RF Rx Instructions: As directed docusate sodium 100 mg capsule 100 mg PO BID Qty: 10 0RF levothyroxine 200 mcg tablet 200 mcg PO DAILY Rx Instructions: TAKE 1 TABLET BY MOUTH EVERY DAY Discontinued hydromorphone 2 mg tablet 2 mg PO Q6H PRN (Reason: pain) Qty: 20 0RF Discharge Orders: Discharge Order (Routine); Ordered 12/02/23 Ordered By: Reed Mathew Referrals: Reed Mathew MD [Physician] - (12/08) Patient Instructions: Acute Wound Care (DC), Opioid Safety, Post Anesthesia Care Activity Restrictions/Additional Instructions: No heavy lifting for the next 4 weeks, you can shower starting the day after tomorrow let soap and water run over your wounds and then pat dry. Continue to empty SHANTA drain as instructed by nursing staff. You can remove the outer dressing in 2 days. Please return to the hospital have fever chills severe pain or purulence coming from your wounds. 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
[2023-12-02] MEDS: liothyronine 5 mcg Tablet 10 MCG PO (08:49)
[2023-12-02] MEDS: levothyroxine 100 mcg Tablet 200 MCG PO (08:49)
[2023-12-02 09:40] VITALS: BP 119/56; PULSE 79; RESP 16; TEMP 36.7; O2SAT 98
[2023-12-02 09:50] VITALS: BP 119/56; PULSE 79; RESP 16; TEMP 36.7; O2SAT 98
== END 2023-12-02 10:06 | disposition home health service (06) | DRG 581 ==
LOC: OBGYN 23:53
PROVIDERS: Anesthesiology; Admitting Provider Surgery; PCP Family Medicine; Visit Provider Surgery
PROC: 07B60ZX Excision of Left Axillary Lymphatic, Open Approach, Diagnostic (ICD-10-PCS; CPT 19303; principal; 2023-12-01 11:20)
PROC: 07B60ZX Excision of Left Axillary Lymphatic, Open Approach, Diagnostic (ICD-10-PCS; 2023-12-01 11:20)
DX: D05.12 Intraductal carcinoma in situ of left breast (principal); Z85.3 Personal history of malignant neoplasm of breast; G89.29 Other chronic pain; M54.50 Low back pain, unspecified; M79.7 Fibromyalgia; F44.81 Dissociative identity disorder; E11.65 Type 2 diabetes mellitus with hyperglycemia; I10 Essential (primary) hypertension; Z96.653 Presence of artificial knee joint, bilateral; E03.9 Hypothyroidism, unspecified; Z92.3 Personal history of irradiation; Z79.4 Long term (current) use of insulin
CPT/HCPCS: 36415; 36416; 38792; 80048; 82962; 83735; 84100; 85025; 88307; 96372; A9520; G0378; J0131; J1100; J1170; J1815; J2250; J2405; J2704; J3370; J3490; J7030; Q9968

== ENCOUNTER 2023-12-17 13:57 | Oncology outpatient (recurring) (ONCR) | payer MEDICARE, SELFPAY ==
[2023-12-17 14:43] LABS: Basophils % 0.5 %; Eosinophils # 0.1 10^3/uL (0.0-0.8); Eosinophils % 2.1 %; Hematocrit 40.4 % (36-47); Lymphocytes # 1.6 10^3/uL (0.8-4.8); Lymphocytes % 26.8 %; Mean Corpuscular HGB Conc 33.4 g/dL (30-55); Mean Corpuscular Volume 92.7 fl (85-98); Monocytes # 0.5 10^3/uL (0.2-0.9); Monocytes % 7.8 %; Neutrophils # 3.78 10^3/uL (1.8-7.7); Neutrophils % 62.5 %; Nucleated Red Blood Cells % 0 %; Platelet Count 194 10^3/cmm (157-399); Red Blood Count 4.36 10^6/uL (3.85-5.65); Red Cell Distribution Width 13.6 % (12.1-15.1); White Blood Count 6.05 10^3/uL (3.29-11.43)
[2023-12-17 15:07] LABS: Alanine Aminotransferase 35 U/L (0-33); Albumin Level 3.8 g/dL (3.5-5.2); Alkaline Phosphatase 55 U/L (35-105); Aspartate Amino Transferase 31 U/L (0-32); Blood Urea Nitrogen 20 mg/dL (8-23); Calcium 8.6 mg/dL (8.5-10.5); Carbon Dioxide 25 mmol/L (22-29); Chloride 103 mmol/L (98-107); Globulin 2.7 g/dL (1.3-4.6); Glucose 208 mg/dL (65-115); Osmolality Calculated 291 mOsm/kg (285-295); Sodium 136 mmol/L (136-145); Total Bilirubin 0.3 mg/dL (0.15-1.2); Total Protein 6.5 g/dL (6.6-8.7)
== END 2024-01-08 23:59 | disposition home or self-care (01) ==
PROVIDERS: PCP Family Medicine; Visit Provider Internal Medicine Hematology & Oncology
DX: C50.411 Malignant neoplasm of upper-outer quadrant of right female breast (principal); C50.912 Malignant neoplasm of unspecified site of left female breast; Z17.0 Estrogen receptor positive status [ER+]; Z85.3 Personal history of malignant neoplasm of breast; Z92.3 Personal history of irradiation; Z92.25 Personal history of immunosuppression therapy
CPT/HCPCS: 36415; 80053; 85025; 99024; 99214

== ENCOUNTER → 2024-01-29 08:58 | Outpatient (BNVA) | payer MEDICARE, SELFPAY | PROVIDERS: PCP Family Medicine; Visit Provider Internal Medicine | DX: Z79.4 Long term (current) use of insulin (principal); E11.65 Type 2 diabetes mellitus with hyperglycemia; E03.9 Hypothyroidism, unspecified | CPT/HCPCS: 80053; 80061; 83036 ==

== ENCOUNTER → 2024-02-03 08:31 | Outpatient (BNVA) | payer MEDICARE, SELFPAY | PROVIDERS: PCP Family Medicine; Visit Provider Internal Medicine | DX: E11.65 Type 2 diabetes mellitus with hyperglycemia (principal); Z79.4 Long term (current) use of insulin; E06.3 Autoimmune thyroiditis; C50.912 Malignant neoplasm of unspecified site of left female breast; Z17.0 Estrogen receptor positive status [ER+]; G47.33 Obstructive sleep apnea (adult) (pediatric) | CPT/HCPCS: 99214 ==

== ENCOUNTER 2024-02-04 13:30 | Oncology outpatient (recurring) (ONCR) | payer MEDICARE, SELFPAY ==
[2024-02-04] MEDS: iohexol 350 mg/mL 500 mL Btl (per mL) PO (12:31)
--- NOTE | 2024-02-04 13:30 | CTR_ITS ---
PROCEDURE INFORMATION: Exam: CT Chest With Contrast; Diagnostic Exam date and time: 02/04/2024 1:37 PM Age: 78 years old Clinical indication: Condition or disease; Other: Infiltrating ductal carcinoma; Prior surgery; Surgery date: 6+ months; Surgery type: Gb, hyst, appy, left breast, RT lumpectomy TECHNIQUE: Imaging protocol: Diagnostic computed tomography of the chest with contrast. Radiation optimization: All CT scans at this facility use at least one of these dose optimization techniques: automated exposure control; mA and/or kV adjustment per patient size (includes targeted exams where dose is matched to clinical indication); or iterative reconstruction. Contrast material: OMNI 350; Contrast volume: 100 ml; Contrast route: INTRAVENOUS (IV); COMPARISON: CR XR chest 2V* [id number] 07/21/2023 10:42 AM RADIATION DOSE METRICS: Total DLP (mGy-cm): 1481.95 FINDINGS: Lungs: Interstitial reticulation posterior segment right upper lobe, most likely scarring. No lung nodules or consolidations. Pleural spaces: Unremarkable. No pneumothorax. No pleural effusion. Heart: Normal in size and configuration. No pericardial effusion. Lymph nodes: No concerning mediastinal, hilar, or axillary adenopathy by CT size criteria. Vasculature: Mild diffuse calcific atherosclerosis of the aorta. Bones/joints: Moderate degenerative changes of the spine with multilevel bridging syndesmophytes. No aggressive bone lesions or acute fractures. Soft tissues: 2.5 x 2.1 x 2.2 cm fluid collection in the right breast with a associated adjacent area of skin and subcutaneous scarring. No significant surrounding inflammation. 2.9 x 6.4 x 1.6 cm thick rim enhancing fluid collection with surrounding inflammation in the left breast. Biopsy clips in the right breast. PROCEDURE INFORMATION: Exam: CT Abdomen And Pelvis With Contrast Exam date and time: 02/04/2024 1:37 PM Age: 78 years old Clinical indication: Condition or disease; Other: Infiltrating ductal carcinoma; Prior surgery; Surgery date: 6+ months; Surgery type: Gb, hyst, appy, left breast, RT lumpectomy TECHNIQUE: Imaging protocol: Computed tomography of the abdomen and pelvis with contrast. Radiation optimization: All CT scans at this facility use at least one of these dose optimization techniques: automated exposure control; mA and/or kV adjustment per patient size (includes targeted exams where dose is matched to clinical indication); or iterative reconstruction. Contrast material: OMNI 350; Contrast volume: 100 ml; Contrast route: INTRAVENOUS (IV); COMPARISON: CR XR chest 2V* [id number] 07/21/2023 10:42 AM RADIATION DOSE METRICS: Total DLP (mGy-cm): 1481.95 FINDINGS: Liver: Benign liver calcified granuloma and hepatic steatosis. No liver lesions. Gallbladder and biliary ducts: Cholecystectomy without biliary ductal dilation. Pancreas: Normal. No ductal dilation. Spleen: Benign splenic calcified granulomas. No splenic masses. Adrenal glands: Normal. No mass. Kidneys and ureters: Right extrarenal pelvis. Too small to characterize left renal lesion, likely a cyst. Consider follow-up ultrasound. Stomach and bowel: Severe constipation without bowel inflammation or obstruction. Appendix: Appendectomy. Intraperitoneal space: No free fluid, fluid collections, or pneumoperitoneum. Vasculature: Moderate atherosclerosis. No aneurysms. Lymph nodes: No retroperitoneal, pelvic, or mesenteric adenopathy. Urinary bladder: Decompressed urinary bladder. Reproductive: Hysterectomy. Bones/joints: Severe degenerative changes of the spine without acute fracture or aggressive osseous lesions. Soft tissues: Fat containing umbilical hernia. CT/CT chest abdpel w/*[id number] IMPRESSION: 1. 2.5 x 2.1 x 2.2 cm fluid collection in the right breast with a associated adjacent area of skin and subcutaneous scarring. No significant surrounding inflammation. This is likely a postsurgical seroma in the absence of clinical inflammatory findings. Consider follow-up with breast ultrasound. 2. 2.9 x 6.4 x 1.6 cm thick rim enhancing fluid collection with surrounding inflammation in the left breast. Although this may also be related to a seroma, a abscess is also in the differential diagnosis, considering the surrounding inflammation. Follow-up with breast ultrasound is also recommended. 3. No evidence for pulmonary metastasis or lymphadenopathy. IMPRESSION: No abdominopelvic metastasis. COMMENTS: Consistent with the [employer]'s Incidental Findings Committee white paper (J Am Adán Radiol 2018): Any incidental renal lesion less than 1 cm or classified as too small to characterize, or any incidental cystic renal lesion characterized as simple-appearing, is likely benign. No follow-up imaging is recommended for these lesions per consensus recommendations based on imaging criteria.
[2024-02-04] MEDS: iohexol 350 mg/mL 500 mL Btl (per mL) IV (13:45)
== END 2024-02-07 23:59 | disposition home or self-care (01) ==
LOC: RAD 02-05 00:01 → ONCMED 02-09 09:41
PROVIDERS: PCP Family Medicine; Visit Provider Internal Medicine Medical Oncology
DX: C50.411 Malignant neoplasm of upper-outer quadrant of right female breast (principal); C50.912 Malignant neoplasm of unspecified site of left female breast; Z17.0 Estrogen receptor positive status [ER+]; Z85.3 Personal history of malignant neoplasm of breast; Z92.3 Personal history of irradiation; Z92.25 Personal history of immunosuppression therapy; D05.12 Intraductal carcinoma in situ of left breast; N63.42 Unspecified lump in left breast, subareolar
CPT/HCPCS: 71260; 74177; 99214

== ENCOUNTER → 2024-02-10 08:30 | Outpatient (BNVA) | payer MEDICARE, SELFPAY | PROVIDERS: PCP Family Medicine; Visit Provider Internal Medicine | DX: E11.65 Type 2 diabetes mellitus with hyperglycemia (principal); Z79.4 Long term (current) use of insulin; E06.3 Autoimmune thyroiditis; C50.912 Malignant neoplasm of unspecified site of left female breast; Z17.0 Estrogen receptor positive status [ER+] | CPT/HCPCS: 84439; 84443 ==

== ENCOUNTER 2024-02-17 07:39 | Oncology outpatient (recurring) (ONCR) | payer MEDICARE, SELFPAY ==
--- NOTE | 2024-02-17 08:00 | NM_ITS ---
WS: [id number] NUCLEAR MEDICINE BONE SCAN Radiopharmaceutical: 25.9 Tc-99m MDP mCi IV Injection site: Antecubital Postinjection imaging delay: 1 hr CLINICAL INFORMATION: infiltrating ductal carcinoma COMPARISON: None. FINDINGS: Bone lesions: There are no osseous lesions suspicious for metastatic disease. Soft tissue contours: Normal. Kidneys: Normal. Other findings: Degenerative type uptake AC joints and sternoclavicular joints. Degenerative type of neck both knees. NM/NM bone scan whole body* [id number] IMPRESSION: No evidence of osseous metastatic disease.
== END 2024-03-09 23:59 | disposition home or self-care (01) ==
PROVIDERS: PCP Family Medicine; Visit Provider Internal Medicine Medical Oncology
DX: C50.912 Malignant neoplasm of unspecified site of left female breast; Z17.0 Estrogen receptor positive status [ER+]; C50.411 Malignant neoplasm of upper-outer quadrant of right female breast
CPT/HCPCS: 78306; A9561

== ENCOUNTER 2024-02-18 08:29 | Outpatient (CLI) | payer MEDICARE, SELFPAY ==
--- NOTE | 2024-02-18 09:00 | MM_ITS ---
WS: [id number] VIEWS: MLO, CC, and ML views RIGHT breast. 3D digital tomosynthesis is also included in this exam. Comparison made with prior exam of 07/14/2023. Findings: The breasts are heterogeneously dense, which may obscure small masses. No suspicious mass identified. Coarse benign-appearing calcifications noted. Architectural distortion secondary to prior surgery. No new suspicious finding. MM/MM diag RT tomosynthesis [id number] Impression: BI-RADS: 0 - Incomplete: Need additional imaging evaluation FOLLOW-UP: Need Additional Imaging. Regional ultrasound recommended. This mammogram was also analyzed by the Computer Aided Detection System R2 Imag e Licensed Surveyor.
--- NOTE | 2024-02-18 09:25 | US_ITS ---
WS: [email or web address] Exam: US breast RT limited* [id number] Date/Time of Exam: 02/18/2024 9:38 AM Reason For Exam: HX OF BREAST CA Regional ultrasound of the central RIGHT breast including the subareolar area is performed. No suspic ious mass or nodule identified. There is a 1.4 x 2 x 1.7 cm septated cyst at the 12 o'clock position 3 cm from the nipple. This is likely an oil cyst. IMPRESSION1. No suspicious ultrasound finding. Recommendations: Continue yearly screening.
== END 2024-02-18 08:30 | disposition home or self-care (01) ==
LOC: RAD 08:29
PROVIDERS: PCP Family Medicine; Visit Provider Family Medicine
DX: Z85.3 Personal history of malignant neoplasm of breast (principal); N60.01 Solitary cyst of right breast
CPT/HCPCS: 76642; 77061; G0279

== ENCOUNTER 2024-03-26 09:30 | Oncology outpatient (recurring) (ONCR) | payer MEDICARE, SELFPAY ==
[2024-03-22 08:54] LABS: Basophils # 0.1 10^3/uL (0.0-0.1); Basophils % 0.8 %; Eosinophils # 0.1 10^3/uL (0.0-0.8); Eosinophils % 1.7 %; Hematocrit 39.9 % (36-47); Lymphocytes # 1.3 10^3/uL (0.8-4.8); Lymphocytes % 21.8 %; Mean Corpuscular HGB Conc 32.3 g/dL (30-55); Mean Corpuscular Hemoglobin 29.3 pg (27-33); Mean Corpuscular Volume 90.5 fl (85-98); Mean Platelet Volume 10.5 fL (7.4-10.4); Monocytes # 0.5 10^3/uL (0.2-0.9); Monocytes % 9.1 %; Neutrophils # 3.94 10^3/uL (1.8-7.7); Neutrophils % 66.3 %; Nucleated Red Blood Cells % 0 %; Platelet Count 171 10^3/cmm (157-399); Red Blood Count 4.41 10^6/uL (3.85-5.65); Red Cell Distribution Width 13.5 % (12.1-15.1); White Blood Count 5.95 10^3/uL (3.29-11.43)
[2024-03-22 09:23] LABS: Alanine Aminotransferase 42 U/L (0-33); Albumin Level 3.9 g/dL (3.5-5.2); Alkaline Phosphatase 51 U/L (35-105); Aspartate Amino Transferase 34 U/L (0-32); Blood Urea Nitrogen 21 mg/dL (8-23); CA 15-3 14.7 U/mL (0-25); Carbon Dioxide 24 mmol/L (22-29); Chloride 100 mmol/L (98-107); Creatinine Clr Calc Pharmacy 71.2123; Globulin 2.6 g/dL (1.3-4.6); Glucose 339 mg/dL (65-115); Lactate Dehydrogenase 150 U/L (135-214); Osmolality Calculated 296 mOsm/kg (285-295); Sodium 135 mmol/L (136-145); Total Bilirubin 0.3 mg/dL (0.15-1.2); Total Protein 6.5 g/dL (6.6-8.7)
--- NOTE | 2024-03-26 09:30 | MR_ITS ---
WS: [id number] MRI BRAIN WITH AND WITHOUT CONTRAST HISTORY: breast cancer COMPARISON: 05/10/2017 TECHNIQUE: Multiplanar imaging performed through the brain with MultiHance . No acute infarcts are seen. [place]-white matter differentiation is well preserved. Moderate atrophy is similar to the prior study. Mild small vessel changes. No prior infarct. No susceptibility artifacts or prior lacunar infarcts. Ventricles and extra-axial spaces are normal. Clivus and pituitary gland are normal. Visualized posterior fossa and brainstem are also normal. Postcontrast images are negative for masses or vascular malformations. Dural venous sinuses are normal. Paranasal sinuses: Well aerated with no significant disease. Mastoid air cells: Small amount of fluid in the LEFT mastoid tip. Calvarium and scalp: Normal. MR/MR head wo/w con [id number] IMPRESSION: 1. No diffusion abnormality or acute infarct. 2. Moderate cerebral atrophy and mild small vessel disease, stable since 2018. 3. No evidence for metastatic disease to the brain.
[2024-03-26] MEDS: gadobenate dimeglumine 20 mL vial IV (11:35)
== END 2024-04-09 23:59 | disposition home or self-care (01) ==
LOC: RAD 03-27 00:01 → ONCMED 03-29 09:21
PROVIDERS: Internal Medicine Hematology & Oncology; PCP Family Medicine; Visit Provider Internal Medicine Medical Oncology
DX: C50.411 Malignant neoplasm of upper-outer quadrant of right female breast (principal); C50.912 Malignant neoplasm of unspecified site of left female breast; Z17.0 Estrogen receptor positive status [ER+]
CPT/HCPCS: 36415; 70553; 80053; 83615; 85025; 86300; 99214

== ENCOUNTER → 2024-03-30 09:01 | Outpatient (BNVA) | payer MEDICARE, SELFPAY | PROVIDERS: PCP Family Medicine; Visit Provider Podiatrist Foot & Ankle Surgery | DX: R60.0 Localized edema (principal); E11.65 Type 2 diabetes mellitus with hyperglycemia; Z79.4 Long term (current) use of insulin; I73.9 Peripheral vascular disease, unspecified; L60.3 Nail dystrophy; L30.9 Dermatitis, unspecified | CPT/HCPCS: 11721; 99213 ==

== ENCOUNTER → 2024-03-31 13:24 | Outpatient (BNVA) | payer MEDICARE, SELFPAY | PROVIDERS: PCP Family Medicine; Visit Provider Internal Medicine Rheumatology | DX: M25.50 Pain in unspecified joint (principal); M54.50 Low back pain, unspecified; G89.29 Other chronic pain; E06.3 Autoimmune thyroiditis; E11.65 Type 2 diabetes mellitus with hyperglycemia; Z79.4 Long term (current) use of insulin | CPT/HCPCS: 99214 ==

== ENCOUNTER → 2024-04-02 12:54 | Outpatient (BNVA) | payer MEDICARE, SELFPAY | PROVIDERS: PCP Family Medicine; Visit Provider Specialist | DX: R29.90 Unspecified symptoms and signs involving the nervous system (principal); F41.1 Generalized anxiety disorder; F44.81 Dissociative identity disorder; F44.5 Conversion disorder with seizures or convulsions; M51.16 Intervertebral disc disorders with radiculopathy, lumbar region; F25.9 Schizoaffective disorder, unspecified | CPT/HCPCS: 99214 ==

== ENCOUNTER 2024-05-03 11:15 | Oncology outpatient (recurring) (ONCR) | payer MEDICARE, SELFPAY ==
[2024-04-22] MEDS: iohexol 350 mg/mL 500 mL Btl (per mL) PO (11:02)
--- NOTE | 2024-04-22 12:00 | CT_ITS ---
WS: [id number] CT CHEST, ABDOMEN AND PELVIS WITH CONTRAST HISTORY: History of breast cancer. TECHNIQUE: Contiguous 5 mm axial imaging performed through the chest, abdomen and pelvis with IV contrast, oral contrast has been provided. Coronal and sagittal reformats chest. Coronal and sagittal reformats through the abdomen and pelvis. All CT scans at [facility] use at least one of these dose optimization techniques: automated exposure control; mA and/or kV adjustment per patient size (includes targeted exams where dose is matched to clinical indication); or iterative reconstruction. CONTRAST: Omnipaque 350; 100 mL IV. DLP: 1432.36 mGy.cm COMPARISON: 02/04/2024, 08/15/[address]: Prior LEFT mastectomy. Previously described fluid collection in the LEFT chest wall at the mastectomy site has nearly completely resolved. There is now an area of mild soft tissue thickening measuring 5.0 x 1.0 cm with overlying soft tissue infiltration. RIGHT breast lumpectomy site with seroma measures 1.5 x 2.5 cm. No significant interval change. No axillary lymph nodes. Mild groundglass attenuation RIGHT upper lobe along the fissure. No pulmonary mass or pneumonia. Mild atherosclerosis aorta. Normal size pulmonary artery. Normal size heart. No mediastinal or hilar adenopathy. Mild increase in thoracic kyphosis. Advanced thoracic spondylosis. No destructive bone lesions. Abdomen CT: Mildly enlarged liver with hepatic steatosis. Normal portal vein. Normal SMV. No intrahepatic duct dilatation. Prior cholecystectomy. Normal pancreas. Splenic granulomata. Mild atherosclerosis abdominal aorta. Mesenteric arteries are patent. No renal obstruction or mass. Too small to characterize LEFT renal hypodensity. Hypodensity is unchanged. Normally distended stomach. No small bowel obstruction. Mild diffuse constipation. Prior appendectomy. No mesenteric or retroperitoneal adenopathy or ascites. Pelvic CT: Normally distended urinary bladder. No free fluid or adenopathy. Moderate increase in lumbar lordosis. Osteopenia. Advanced degenerative disc disease and osteophytes and facet arthritis. Stenosis in the lumbar spine at multiple levels. CT/CT chest abdpel w/*[id number] IMPRESSION: 1. Status post LEFT mastectomy. Fluid collection at the mastectomy site has co llapsed. Minimal residual soft tissue thickening measures 5.0 x 1.0 cm. There i s additional soft tissue infiltration in the chest wall at the site of the mast ectomy which may all be postoperative or post treatment change. 2. No change in the RIGHT breast lumpectomy seroma. 3. No metastatic disease to the lungs, liver or adrenal glands. 4. Prior cholecystectomy. 5. Diffuse constipation. 6. No mesenteric lymphadenopathy in the abdomen or pelvis. 7. Reidentified is unchanged interstitial reticulation in the RIGHT upper lobe . May be an area of pneumonitis or scar.
[2024-04-22] MEDS: iohexol 350 mg/mL 500 mL Btl (per mL) IV (12:15)
== END 2024-05-07 23:59 | disposition home or self-care (01) ==
PROVIDERS: PCP Family Medicine; Visit Provider Internal Medicine Medical Oncology
DX: C50.411 Malignant neoplasm of upper-outer quadrant of right female breast (principal); C50.912 Malignant neoplasm of unspecified site of left female breast; Z17.0 Estrogen receptor positive status [ER+]; Z85.3 Personal history of malignant neoplasm of breast; R41.3 Other amnesia; R56.9 Unspecified convulsions; Z53.9 Procedure and treatment not carried out, unspecified reason
CPT/HCPCS: 71260; 74177; 99214

== ENCOUNTER → 2024-05-05 12:32 | Outpatient (BNVA) | payer MEDICARE, SELFPAY | PROVIDERS: PCP Family Medicine; Visit Provider Surgery | DX: N60.01 Solitary cyst of right breast (principal) | CPT/HCPCS: 99213 ==

== ENCOUNTER 2024-05-18 23:07 | Emergency (ER) | payer MEDICARE, SELFPAY ==
[2024-05-18 23:09] VITALS: BP 186/72; PULSE 91; RESP 18; TEMP 36.5; O2SAT 97; BMI 48.6
[2024-05-19] MEDS: tetanus-dipt-pertussis 0.5 mL SDV IM (00:17)
[2024-05-19 00:48] VITALS: BP 179/76; PULSE 91; O2SAT 97
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
== END 2024-05-19 00:48 | disposition home or self-care (01) ==
PROVIDERS: Emergency Provider Physician Assistant; PCP Family Medicine
DX: S80.811A Abrasion, right lower leg, initial encounter (principal); Z79.4 Long term (current) use of insulin; Z85.3 Personal history of malignant neoplasm of breast; E11.9 Type 2 diabetes mellitus without complications; I10 Essential (primary) hypertension; X58.XXXA Exposure to other specified factors, initial encounter; Z23 Encounter for immunization
CPT/HCPCS: 90715; 99283

== ENCOUNTER → 2024-05-19 10:42 | Outpatient (BNVA) | payer MEDICARE, SELFPAY | PROVIDERS: PCP Family Medicine; Visit Provider Surgery | DX: N63.0 Unspecified lump in unspecified breast (principal) | CPT/HCPCS: 99213 ==

== ENCOUNTER 2024-05-31 10:00 | Oncology outpatient (recurring) (ONCR) | payer MEDICARE, SELFPAY ==
--- NOTE | 2024-05-20 08:45 | NM_ITS ---
WS: [id number] NUCLEAR MEDICINE BONE SCAN Radiopharmaceutical: 25.8 Tc-99m MDP mCi IV Injection site: Antecubital Postinjection imaging delay: 1 hr CLINICAL INFORMATION: breast cancer COMPARISON: 02/17/2024 FINDINGS: Thoracolumbar scoliosis. Degenerative uptake lumbar spine. Bone lesions: There are no osseous lesions suspicious for metastatic disease. Soft tissue contours: Normal. Kidneys: Normal. Other findings: Degenerative type uptake in both AC joints and sternoclavicular joints. NM/NM bone scan whole body* [id number] IMPRESSION: No evidence of osseous metastatic disease.
[2024-05-31 10:09] LABS: Basophils % 0.7 %; Eosinophils # 0.1 10^3/uL (0.0-0.8); Eosinophils % 1.8 %; Hematocrit 42.2 % (36-47); Lymphocytes # 1.2 10^3/uL (0.8-4.8); Lymphocytes % 19.4 %; Mean Corpuscular HGB Conc 32.9 g/dL (30-55); Mean Corpuscular Hemoglobin 30.6 pg (27-33); Mean Platelet Volume 10.6 fL (7.4-10.4); Monocytes # 0.5 10^3/uL (0.2-0.9); Monocytes % 7.3 %; Neutrophils # 4.33 10^3/uL (1.8-7.7); Neutrophils % 70.5 %; Nucleated Red Blood Cells % 0 %; Platelet Count 165 10^3/cmm (157-399); Red Blood Count 4.54 10^6/uL (3.85-5.65); Red Cell Distribution Width 13.4 % (12.1-15.1); White Blood Count 6.14 10^3/uL (3.29-11.43)
[2024-05-31 10:37] LABS: Alanine Aminotransferase 31 U/L (0-33); Alkaline Phosphatase 50 U/L (35-105); Anion Gap 15.8 (5-19); Aspartate Amino Transferase 29 U/L (0-32); Blood Urea Nitrogen 18 mg/dL (8-23); CA 15-3 15.3 U/mL (0-25); Calcium 9.1 mg/dL (8.5-10.5); Carbon Dioxide 26 mmol/L (22-29); Chloride 101 mmol/L (98-107); Globulin 2.6 g/dL (1.3-4.6); Glucose 284 mg/dL (65-115); Osmolality Calculated 298 mOsm/kg (285-295); Potassium 4.8 mmol/L (3.5-5.1); Sodium 138 mmol/L (136-145); Total Bilirubin 0.3 mg/dL (0.15-1.2); Total Protein 6.6 g/dL (6.6-8.7)
== END 2024-06-07 23:59 | disposition home or self-care (01) ==
PROVIDERS: PCP Family Medicine; Visit Provider Internal Medicine Medical Oncology
DX: Z53.9 Procedure and treatment not carried out, unspecified reason; C50.411 Malignant neoplasm of upper-outer quadrant of right female breast; C50.912 Malignant neoplasm of unspecified site of left female breast; Z17.0 Estrogen receptor positive status [ER+]
CPT/HCPCS: 36415; 78306; 80053; 85025; 86300; 99214; A9561

== ENCOUNTER → 2024-07-07 13:18 | Outpatient (BNVA) | payer MEDICARE, SELFPAY | PROVIDERS: PCP Family Medicine; Visit Provider Internal Medicine Rheumatology | DX: M25.50 Pain in unspecified joint (principal); M54.50 Low back pain, unspecified; G89.29 Other chronic pain; E06.3 Autoimmune thyroiditis; E11.65 Type 2 diabetes mellitus with hyperglycemia; Z79.4 Long term (current) use of insulin | CPT/HCPCS: 99214 ==

== ENCOUNTER 2024-07-20 08:26 | Outpatient (CLI) | payer MEDICARE, SELFPAY ==
[2024-07-20 09:30] LABS: Estmated Average Glucose 169; Hemoglobin A1C 7.5 % (4.0-6.0)
[2024-07-20 09:43] LABS: Alanine Aminotransferase 38 U/L (0-33); Albumin Level 3.9 g/dL (3.5-5.2); Alkaline Phosphatase 43 U/L (35-105); Anion Gap 15.7 (5-19); Aspartate Amino Transferase 38 U/L (0-32); Blood Urea Nitrogen 20 mg/dL (8-23); Calcium 8.7 mg/dL (8.5-10.5); Carbon Dioxide 26 mmol/L (22-29); Chloride 100 mmol/L (98-107); Chol HDL Ratio 3.11 mg/dL (0.0-4.40); Cholesterol 146 mg/dL (0-200); Glucose 245 mg/dL (65-115); HDL Cholesterol 47 mg/dL (60-100); LDL Cholesterol Calculated 68 mg/dL (50-129); LDL HDL Ratio 1.45 RATIO (0.00-3.22); Osmolality Calculated 295 mOsm/kg (285-295); Potassium 4.7 mmol/L (3.5-5.1); Sodium 137 mmol/L (136-145); Thyroid Stimulating Hormone 0.88 uIU/mL (0.27-4.20); Total Bilirubin 0.4 mg/dL (0.15-1.2); Total Protein 6.9 g/dL (6.6-8.7); Triglycerides 155 mg/dL (0-150)
== END 2024-07-20 08:27 | disposition home or self-care (01) ==
LOC: LAB 08:29
PROVIDERS: Absent Provider Specialist; PCP Family Medicine; Visit Provider Internal Medicine
DX: I10 Essential (primary) hypertension (principal); E11.8 Type 2 diabetes mellitus with unspecified complications; E06.3 Autoimmune thyroiditis; E11.65 Type 2 diabetes mellitus with hyperglycemia; Z79.4 Long term (current) use of insulin; L65.9 Nonscarring hair loss, unspecified
CPT/HCPCS: 36415; 80053; 80061; 83036; 84439; 84443

== ENCOUNTER → 2024-07-27 10:49 | Outpatient (BNVA) | payer MEDICARE, SELFPAY | PROVIDERS: PCP Family Medicine; Visit Provider Internal Medicine | DX: R06.09 Other forms of dyspnea (principal); G47.33 Obstructive sleep apnea (adult) (pediatric); I73.9 Peripheral vascular disease, unspecified; R55 Syncope and collapse | CPT/HCPCS: 99214 ==

== ENCOUNTER 2024-09-01 10:54 | Emergency (ER) | payer MEDICARE, SELFPAY ==
--- OUTSIDE RECORDS SUMMARY | 2011-02-11 02:09 | XMS_ITS | Continuity of Care Document ---
Author Organization [facility] [place] [facility] Address [address] [place] [address] Phone Care Team Providers Care Assembler Musical Equipment Name Role Phone Stas Grover MD Unavailable Unavailable Allergies, Adverse Reactions, Alerts Substance Reaction Status Criticality THIOPENTAL SODIUM Active No Informa tion metformin Active No Information THIOPENTAL SODIUM Active No Informa tion codeine Active No Information gluten Active No Information Medications Medication Instructions Dosage Effective Dates (start - stop) Status Comments Co Q-10 100 mg Cap take 1 Capsule by Or al route 3 times per Week - Active furosemide 20 mg Tab take 2 tablet by or al route every day as needed - Active testosterone cypionate 100 mg/mL IM Oil inject 0.5 milliliter (50MG) by intramuscular route every 4 weeks 50 MG - Active Depo-Estradiol 5 mg/mL IM Oil inject 1 milliliter (1MG) by intramuscular route every 4 weeks - Active alendronate 70 mg Tab take 1 tablet (70M G) by oral route every week in the morning, at least 30 minutes before the first food, beverage, or medication of the day 70 MG - Active Vitamin D 50,000 unit Cap take 1 capsule ([id number]) by oral route 3 times Week - Active chromium picolinate 200 mcg Tab daily - Active Aspir-81 81 mg Tab take 1 tablet (81MG) by oral route every day - Active Lovaza 1 gram Cap take 2 capsule (2G) by oral route 2 times every day 2 G - Active Niaspan Extended-Release 1,000 mg 24 hr Tab take 1 tablet (1000MG) by oral route every day at bedtime after a low-fat snack - Active ramipril 5 mg Tab take 1 tablet (5MG) by oral route every bedtime - Active liothyronine 5 mcg Tab take 2 tablet by oral route every day - Active Synthroid 125 mcg Tab take 1 tablet (125 MCG) by oral route every day 125 MCG - Active Advance Directives Directive Yes / No Effective Date File Name No Information Encounters Encounter Description Practice Location Reason(s) For Visit Diagnoses Date Provider [employer] [facility], [address], [place], [place], [address] [place] [address], tel:[phone] No Information 2010 Lenore Damno [facility] [address] [place] [address] [address] [place] [address], [address] [place] [address], . tel:[phone] [facility], [address], [place], [address] [place] [address], tel:[phone] No Information 2010 Sepideh Dunn. [address] [place] [address], [address] [place] [address], . tel:[phone] [facility], [address], [place], [address] [place] [address], tel:[phone] No Information 2010 Sepideh Dunn. [address] [place] [address], [address] [place] [address], . tel:[phone] [facility] [facility], [address], [place], [address] [place] [address], tel:[phone] No Information 2010 [facility], [address] [place] [address] [address], [place], [address] [place] [address], . tel:[phone] [facility] [facility], [address], [place], [address] [place] [address], tel:[phone] [employer] establish care recently move[place] here from [place] (chief complaint) No Information 2010 Lenore Mcclelland. [facility] [address] [facility], [facility] [address], [place], [place], [id number], [place]. tel:[phone] Family History Family Member Type Diagnosis Age At Onset No Information Payers Payer name Insurance type Covered alliance party ID Authoriza tion(s) [place] [id number] Social History Type Description Quantity Date Captured [...]
[2024-09-01 10:59] VITALS: BP 166/110; PULSE 89; RESP 22; TEMP 36.6; O2SAT 98
--- NOTE | 2024-09-01 11:05 | ECG_ITS ---
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
--- NOTE | 2024-09-01 11:06 | CTR_ITS ---
PROCEDURE INFORMATION: Exam: CT Head Without Contrast Exam date and time: 09/01/2024 11:28 AM Age: 79 years old Clinical indication: Pain; Dizziness; Headache; Other: RT sided; HX of breast cancer TECHNIQUE: Imaging protocol: Computed tomography of the head without contrast. Radiation optimization: All CT scans at this facility use at least one of these dose optimization techniques: automated exposure control; mA and/or kV adjustment per patient size (includes targeted exams where dose is matched to clinical indication); or iterative reconstruction. COMPARISON: MR head wo/w con [id number] 03/26/2024 11:04 AM RADIATION DOSE METRICS: Total DLP (mGy-cm): 1199.98 FINDINGS: Brain: Diffuse cerebral atrophy, consistent with patient's age. Moderate periventricular and subcortical white matter hypodensities compatible with chronic small vessel ischemic disease. No intracranial hemorrhage. No acute infarct. No extra-axial fluid collection. Cerebral ventricles: Ventricles size in proportion to the degree of atrophy. Paranasal sinuses: Visualized sinuses are unremarkable. No fluid levels. Mastoid air cells: Visualized mastoid air cells are well aerated. Bones: Unremarkable. No acute fracture. Soft tissues: Unremarkable. CT/CT head wo con* [id number] IMPRESSION: No acute intracranial abnormality.
--- NOTE | 2024-09-01 11:07 | XRR_ITS ---
PROCEDURE INFORMATION: Exam: XR Chest Exam date and time: 09/01/2024 11:08 AM Age: 79 years old Clinical indication: Shortness of breath; Prior surgery; Surgery date: 6+ months; Surgery type: Lt breast RT breast lumpectomy; HX of breast cancer TECHNIQUE: Imaging protocol: Radiologic exam of the chest. Views: 1 view. COMPARISON: CT chest abdpel w/*[id number] 04/22/2024 11:57 AM FINDINGS: Lungs: No consolidation. Pleural spaces: No sizable pleural effusion or pneumothorax. Heart/Mediastinum: No cardiomegaly. Bones/joints: Unremarkable. XR/XR chest 1V portable [id number] IMPRESSION: No acute intrathoracic findings.
[2024-09-01 11:25] LABS: ABG PCO2 35.5 mmHg (35-45); ABG PH Result 7.45 (7.35-7.45); Alveolar-Arterial Oxygen Gradi 3.1 mmHg (5-10); Arterial Blood Gas Hematocrit 43.5 % (37-47); Base Excess ABG 0.8 mmol/L (-2.0-2.0); Blood Gas Allen Test Pos; Blood Gas Operator Identificat MONRO; Blood Gas Sample Site Radial, right; Blood Gas Sample Type Arterial; Carboxyhemoglobin 1.2 %THgb (0.4-20.1); HCO3 ABG 24.5 mmol/L (22-26); HGB O2 Sat 95.3 % (95-100); Ionized Calcium Level - ABG 1.2 mmol/L (1.1-1.4); Methemoglobin 0.8 % (0.4-1.5); Oxygen Device ROOM AIR; Oxygen Saturation ABG 97.3; PO2 ABG 81.7 mmHg (80.0-100.0); PO2 FiO2 Ratio Arterial Blood 389; Potassium Level - ABG 4.3 mmol/L (3.5-5.0); Total Hemoglobin 14.2 g/dL (12-16)
--- OUTSIDE RECORDS SUMMARY | 2024-09-01 11:41 | XMS_ITS | Patient Health Record ---
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 Name Role Phone Stas Fulton MD Primary Care Provider Iván Wong Unavailable [phone] Andrae Cabrera Unavailable [phone] Results Component Value Reference Range Notes Lumbosacral Spine AP/Lat-721 00 (Not yet reviewed by provider) Interpretation: Performing Lab: Notes/Report: lot=[id number]&org=iSite MRI Lumbar Spine w/o Cont-72 148 (Not yet reviewed by provider) Interpretation: Performing Lab: Notes/Report: nbt=[id number]&org=iSite Lumbosacral Spine AP/Lat-721 00 (Not yet reviewed by provider) Interpretation: Performing Lab: Notes/Report: bkb=[id number]&org=iSite Schedule Confirmation (Not y et reviewed by provider) Interpretation: Performing Lab: Notes/Report: MRI Lumbar Spine w/o Cont Schedule Confirmation (Not y et reviewed by provider) Interpretation: Performing Lab: Notes/Report: MRI Lumbar Spine w/o Cont IH Lumbosacral Spine AP/Lat - 41298 (Not yet reviewed by provider) Interpretation: Performing Lab: Notes/Report: See Below For Report Lumbosacral Spine AP/Lat Diagnosis Description: Other intervertebral disc degeneration, lumbar region MRI Lumbar Spine w/o Cont-72 148 (Not yet reviewed by provider) Interpretation: Performing Lab: Notes/Report: See Below For Report MRI Lumbar Spine w/o Cont Diagnosis Description: Other intervertebral disc degeneration, lumbar region Read See Below For Report IH Lumbosacral Spine AP/Lat - 52416 (Not yet reviewed by provider) Interpretation: Performing Lab: Notes/Report: See Below For Report Lumbosacral Spine AP/Lat Diagnosis Description: Radiculopathy, lumbar region Reason For Referral No Information Medications Medication SIG (Take, Route, Frequency, Duration) [...] Problem Status W/U Status Risk Notes Problem 36223535 Other chronic pain (G89.29) Active confirmed Problem Lumbar radiculopathy (608709828) Lumbar radiculopathy (M54.16) Active confirmed Problem Kyphosis (580675305) Kyphosis (M40.209) Active confirmed Problem Scoliosis (506279672) Scoliosis (M41.9) Active confirmed Problem Hip pain (93037645) Hip pain (M25.559) Active confirmed Problem Degeneration of lumbar intervertebral disc (80700231) Degenerative disc disease, lumbar (M51.36) Active confirmed Problem Degeneration of lumbar intervertebral disc (96573197) Disc degeneration, lumbar (M51.36) Active confirmed Vital Signs Heart Rate 92 /min 10/23/2023 Temperature 97.6 degrees Fahrenheit 10/23/2023 Respiratory Rate 18 /min 10/23/2023 Height-cm 165.1 cm 10/23/2023 Oximetry 97 % 10/23/2023 Blood pressure diastolic 74 mm Hg 10/23/2023 Weight-kg 118.84 kg 10/23/2023 Height 65 in 10/23/2023 Blood pressure systolic 132 mm Hg 10/23/2023 Weight 262 lbs 10/23/2023 BMI 43.59 kg/m2 10/23/2023 Encounters Encounter Location Date Provider Diagnosis [facility] [place] [address] 09/10/2023 Andrae Cabrera Lumbar radiculopathy M54.16 ; Degenerative disc disease, lumbar M51.36 and Hip pain M25.559 [facility] [address] [place] [address] 10/23/2023 Iván Irizarry Lumbar radiculopathy M54.16 ; Scoliosis M41.9 ; Disc degeneration, lumbar M51.36 and Lumbar stenosis M48.061 [facility] [address] [facility] [place] [place] [address] 10/22/2023 Iván Irizarry Lumbar radiculopathy M54.16 ; Lumbar pain M54.50 and Fall W19.XXXA Assessments Encounter Date Diagnosis (ICD Code) Assessment Notes Treatment Notes Treatment Clinical Notes Section Notes 09/10/2023 Lumbar radiculopathy (ICD-10 - M54.16) 10/22/2023 Lumbar radiculopathy (ICD-10 - M54.16) 10/23/2023 Lumbar radiculopathy (ICD-10 - M54.16) 10/23/2023 Scoliosis (ICD-10 - M41.9) 10/23/2023 Disc degeneration, lumbar (ICD-10 - M51.36) 09/10/2023 Degenerative disc disease, lumbar (ICD-10 - [...] imaging. 10/22/2023 Lumbar pain (ICD-10 - M54.50) 09/10/2023 Hip pain (ICD-10 - M25.559) 10/22/2023 Fall (ICD-10 - W19.XXXA) 10/23/2023 Lumbar stenosis (ICD-10 - M48.061) 10/23/2023 [...] Test Test Name Order Date Lumbosacral Spine AP/Lat-21296 4 Lumbosacral Spine AP/Lat-79696 4 MRI Lumbar Spine w/o Cont-88161 09/10/19 24 MRI Lumbar Spine w/o Cont-88168 10/09/19 24 MRI Thoracic Spine w/o Cont-71670 2019 MRI Thoracic Spine w/o Cont-99216 2019 Schedule Confirmation 10/09/2023 Schedule Confirmation 10/09/2023 IH Lumbosacral Spine AP/Lat - 78159 10/08 IH Lumbosacral Spine AP/Lat - 76942 03/2023 Insurance Providers Payer Name Payer Address Payer Phone Subscriber Number Group Number Insured Name Patient Relationship to Insured Coverage Start Date Coverage End Date [place] [address] [place] [phone] [id number] JULES KHOURY Self - patient is the insured [facility] Medicare Supplement [address] [place] [address] [id number] JULES KHOURY Self - patient is the [...]
--- OUTSIDE RECORDS SUMMARY | 2024-09-01 11:42 | XMS_ITS | Data Portability ---
Author Organization CHERYL Hamm [facility] [place] [facility] Address [address] [address] Assessment No assessment recorded. Plan of Treatment Reminders Order Date Submit Date Provider Last Modified By Organization Details Last Modified Time Details Appointments None recorded. Lab None recorded. Referral None recorded. Procedures None recorded. Surgeries None recorded. Imaging None recorded. Medication Orders levalbutero l concentrate 1.25 mg/0.5 mL solution for nebulizatio n 2023 024 [facility] [place], [address] [place] [address], [id number], 4 10:15:58 cefdinir 300 mg capsule 2023 024 [facility] [place], [address] [place] [address], [address], 4 10:15:58 Patient TargetsNo targets recorded. Patient InstructionsNo instructions recorded. Reason for Referral None Reported. 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 Medical Equipment None Reported. Allergies Allergen ID Allergen Name Allergen Category Reaction Reaction Severity Criticality Documentation Date Start Date Code Code System Note Provider Name and Address Organization Details Recorded Time 37979 aspirin medicatio n dyspnea Not available Not available 10/05/2022 1191 RxNorm React ion: Asthm a; Comme nt: Recor ded 05/27 7:07A M by Tamchung lugo Green , Offic e Visit ; Promo iris; Signi fican ce: *; Reaso n: Drug aller gy; ; Not Available [facility] 3 02:27:01 07364 pineapple allergeni c extract food,medi cation anaphylax is Not available Not available 10/05/2022 70221 5 RxNorm React ion: Anaph ylaxi s; Comme nt: Recor ded 05/27 7:07A M by Karla lugo Green , Offic e Visit ; Promo iris; Signi fican ce: *; ; Not Available [facility] 3 02:27:01 35927 animal dander environme nt other Not available Not available 10/05/2022 16221 UNK React ion: CATS; Comme nt: Recor ded 05/27 7:07A M by Tamat lugo Green , Offic e Visit ; Promo iris; Signi fican ce: *; ; Not Available [facility] 3 02:27:02 53916 albuterol sulfate medicatio n other Not available Not available 10/05/2022 01249 3 RxNorm React ion: _hype r_ and narcisoki ness; Comme nt: Recor ded 05/27 7:07A M by Tamat lugo Green , Offic e Visit ; Promo iris; Signi fican ce: *; Reaso n: Drug aller gy; ; Not Available [facility] 3 02:27:02 62609 metformin hydrochlo ride medicatio n Not available Not available Not available 10/05/2022 79599 3 RxNorm Comme nt: Recor ded 05/27 7:07A M by Tamat lugo Green , Offic e Visit ; Promo iris; Signi ficanthony ce: *; Reaso n: Drug aller gy; ; Not Available [facility] 3 02:27:02 72293 penicilli n V potassium medicatio n Not available Not available Not available 10/05/2022 52465 5 RxNorm Comme nt: Recor ded 05/27 7:07A M by Tamat lugo Green , Offic e Visit ; Promo iris; Signi fican ce: *; Reaso n: Drug aller gy; ; Not Available [facility] 3 02:27:02 54644 codeine phosphate medicatio n irregular heart rate Not available Not available 10/05/2022 2672 RxNorm React ion: Irreg ular heart rate; Comme nt: Recor ded 05/27 7:07A M by Tamat lugo Green , Offic e Visit ; Promo iris; Signi fican ce: *; Reaso n: Drug aller gy; ; Not Available [facility] 3 02:27:02 90997 Victoza medicatio n headache Not available Not available 10/05/2022 89151 3 RxNorm React ion: Heada zechariah;c onsti patio n; Comme nt: Recor ded 05/27 7:07A M by Tamat lugo Green , Offic e Visit ; Promo iris; Signi fican ce: *; Reaso n: Drug aller gy; ; Not Available [facility] 3 02:27:02 73384 doxycycli ne Not available rash Not available Not available 03/29/2023 3640 RxNorm EBONY CHERYL Gray [facility] [place] 4 09:17:14 Medications Name Sig Start Date Stop Date Status Note LastModified by Organization Details LastModified Time sm saline nasal spr 3oz USE 2 SPRAYS intranasa lly EVERY 4 HOURS NEEDED FOR dry nasal passages or infection active Not Available Not Available No t Available doxycyclin e hyclate 100 mg capsule TAKE ONE CAPSULE BY MOUTH TWICE DAILY active Not Available Not Available No t Available enalapril maleate 5 mg tablet take 6 tablets (30 MG) BY MOUTH EVERY DAY active Not Available Not Available No t Available benzonatat e 200 mg capsule three times daily, as needed 2022 active 02942; Recorded 3 1:04PM by Emily Garcia RN (Authoriz ed through MARTI Evans), Refill Request; Refill Quantity: 0; Not Available Not Available Not Available Synthroid 200 mcg tablet TAKE 1 TABLET BY MOUTH EVERY DAY active Not Available Not Available No t Available enalapril maleate 20 mg tablet TAKE 1 & 1/2 TABLETS BY MOUTH EVERY DAY active Not Available Not Available No t Available permethrin 5 % topical cream APPLY TOPICALLY TO THE AFFECTED AREA ONCE active Not Available Not Available No t Available liothyroni ne 5 mcg tablet TAKE 2 TABLETS BY MOUTH EVERY DAY at NOON active Not Available Not Available No t Available erythromyc in 250 mg tablet TAKE 2 TABLETS BY MOUTH THE NIGHT BEFORE PROCEDURE THEN TAKE 4 TABLETS ONE HOUR PRIOR TO PROCEDURE active Not Available Not Available No t Available Humalog U-100 Insulin 100 unit/mL subcutaneo us solution USE 150 units via pump continuou s THREE TIMES DAILY active Not Available Not Available No t Available Synthroid 25 mcg tablet TAKE 1 TABLET BY MOUTH EVERY DAY with 200mcg DOSE active Not Available Not Available No t Available benzonatat e 100 mg capsule TAKE ONE CAPSULE BY MOUTH THREE TIMES DAILY as needed for cough active Not Available Not Available No t Available cephalexin 500 mg capsule TAKE ONE CAPSULE BY MOUTH THREE TIMES DAILY active Not Available Not Available No t Available triamcinol one acetonide 0.1 % topical ointment APPLY TOPICALLY TO THE AFFECTED AREA TWICE DAILY NEEDED FOR ITCHING SKIN active Not Available Not Available No t Available montelukas t 10 mg tablet 1 2018 active Recorded 9 8:30AM by Connie Rowe RN, Office Visit; Refill Quantity: 14; Tablet; Not Available Not Available Not Available mupirocin 2 % topical ointment APPLY TOPICALLY TO THE AFFECTED AREA TWICE DAILY NEEDED FOR ABRASION active Not Available Not Available No t Available levalbuter ol 1.25 mg/3 mL solution for nebulizati on USE ONE vial via nebuilzer THREE TIMES DAILY NEEDED active Not Available Not Available No t Available cefdinir 300 mg capsule take 1 capsule BY MOUTH TWICE DAILY FOR sinus infection active Not Available Not Available No t Available fluticason e propionate 50 mcg/actuat ion nasal spray,susp ension USE 2 SPRAYS IN EACH NOSTRIL DAILY active Not Available Not Available No t Available doxycyclin e hyclate 100 mg tablet TAKE ONE TABLET BY MOUTH TWICE DAILY active Not Available Not Available No t Available neomycin 3.5 mg/g-polym yxin B 10,000 unit/g-dex ameth 0.1 % eye oint APPLY 1/4 INCH ON EYELID THREE TIMES DAILY. START DAY OF PROCEDURE AND CONTINUE FOR TWO WEEKS active Not Available Not Available No t Available levalbuter ol concentrat e 1.25 mg/0.5 mL solution for nebulizati on Inhale 0.5 mL 3 times a day by inhalatio n route as needed. 2023 active Not Available Not Available Not Avai lable Lasix prn 2017 active Recorded 9 10:09AM by Annalise Dickerson LPN, Office Visit; Refill Quantity: 0; Not Available Not Available Not Available lidocaine UAD prn 2017 active Recorded 9 10:09AM by Annalise Dickerson LPN, Office Visit; Refill Quantity: 60; Gram; Not Available Not Available Not Available Saline prn mix with Xopenex 2018 active Recorded 9 10:09AM by Annalise Dickerson LPN, Office Visit; Refill Quantity: 30; Vial; Not Available Not Available Not Available OneToFactery Ultra System Kit three times daily 2015 active Dx-E11.8 meter,roxy cets,stri ps VO JR/tn; Recorded 9 10:09AM by Annalise iDckerson LPN, Office Visit; Refill Quantity: 1; QS; Not Available Not Available Not Available Novolog U-100 Insulin aspart three times a day with meals active 0; Recorded 3 7:07AM by Ebony Dominguez, Office Visit; Not Available Not Available Not Available Insulin Syringe daily 2016 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 RM/SE; 9; Recorded 9 10:09AM by Annalise Dickerson LPN (Authoriz ed through Niko Toledo MD), Office Visit; Refill Quantity: 0; Not Available Not Available Not Available Sodium Liothyroni ne Daily active 0; Recorded 3 7:07AM by Ebony Dominguez, Office Visit; Not Available Not Available Not Available Levemir U-100 Insulin BID active 80 units - Bid; 0; Recorded 3 7:07AM by Ebony Dominguez, Office Visit; Not Available Not Available Not Available Truetest Test Strips three times daily 2018 active dx code- E11.8 vo / mecca awan; 173; Recorded 9 10:09AM by Annalise Dickerson LPN (Authoriz ed through Stas Fulton MD), Office Visit; Refill Quantity: 150; Strip; Not Available Not Available Not Available Vitals Date Recorded Body height Body mass index (BMI) Body weight Oxygen saturation Oxygen saturation in Arterial blood by Pulse oximetry Heart rate Respiratory rate Body temperature Systolic blood pressure Diastolic blood pressure Provider Name and Address Organization Details Last Updated DateTime 4 160.02 cm 46.4 kg/m2 270131. 2 g 99 % 99 % 99 /min 17.99 /min 97.5 [degF] 147 mm[Hg] 65 mm[Hg] EBONY DOMINGUEZ [facility] 4 09:16:27 Social History None recorded. Functional Status None recorded. Mental Status None recorded. Family History Nothing Reported. Medical History No medical history recorded. Gynecological HistoryNo gynecological history recorded. Obstetrics History GPAL:G 0 P 0 0 0 0 Immunizations Vaccine Type Date Status Note Provider Nam e and Address Organization Details Recorded Time Influenza, split virus, trivalent, preservative 5 completed Not Available [facility] 10/05/2022 02:51:57 Influenza, split virus, trivalent, preservative 3 completed Not Available [facility] 10/05/2022 02:51:58 pneumococcal polysaccharide PPV23 0 completed Not Available [facility] 10/05/2022 02:51:58 Influenza, split virus, trivalent, preservative 4 completed Not Available [facility] 10/05/2022 02:51:58 Past Encounters Encounter ID Performer Location Encounter Start Date Encounter Closed Date Diagnosis/Indication Diagnosis SNOMED-CT Code Diagnosis ICD10 Code Diagnosis Note [id number] MARTI HAYNES [facility] ([facility]) [address] [place] [phone] 03/29/2023 09:05:25 03/29/2023 09:50:58 Acute maxillary sinusitis 60746112 J01.00 Instructed to increase fluids and continue tessalon perles Asthma 537407291 J45.90 9 Health Concerns Section Related Observation LastModified by Organization Detai ls LastModified Time None Recorded Concern Status LastModified by Organization Details LastModified Time None Recorded Advance Directives Directive None Recorded Payers Insurance Date Sequence Insurance Name Policy Number Policy Ferreira Covered Member ID Ferreira Member ID Guarantor Name 04/25/2023 [place] - [facility] (MEDICARE) [place] [id number] [place] 06/03/2023 1 [employer] (MEDICARE SUPPLEMENT) Al[place] [id number] Alisha V Mary 04/25/2023 1 [place] [id number] Alisha V Mary 04/25/2023 2 [facility] Alisha [place] [id number] Alisha V Mary 04/25/2023 2 [facility] Alisha V Mary [id number] Alisha V Mary Notes Date Note Type Note Provider Name and Address Organization Details Recorded Time 03/29/2023 text/html CoughReported bypatient.Quality:d ry Severity:worsening; pain with cough; moderate Duration:constant; acute (<3 weeks) Onset/Timing:sudden ; becomes worse as the day goes on Associated Symptoms:no nausea; no vomiting; no sputum production;fever;sh ortness of breath;tiredness MARTI HAYNES [address] [place], [address] 09:49:19 OBGyn Episode No OBEpisode recorded.
--- OUTSIDE RECORDS SUMMARY | 2024-09-01 11:42 | XMS_ITS | Patient Health Record ---
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 Phone Anna Pateln Unavailable [phone] Evan Reynolds MD Unavailable Unavailable ALLERGIES Allergen (clinical drug ingredient) Drug/Non Drug Allergy documented on EMR Reaction Allergy Type Onset Date Status aspirin Aspirin Unknown Drug Allergy Active metformin Metformin Unknown Drug Allergy Active Penicillin Unknown Drug Allergy Active REASON FOR REFERRAL No Information MEDICATIONS Medication SIG (Take, Route, Frequency, Duration) Notes Start Date End Date Status Synthroid 200 MCG Oral for 90 Active Fluticasone Propionate 50 MCG/ACT Nasal for 30 Active Enalapril Maleate 20 MG Oral for 90 Active HumaLOG 100 UNIT/ML Injection for 13 Active Triamcinolone Acetonide 0.1 % External for 30 Active Vasotec 2.5 MG 1 tablet Orally Once a day for 30 day(s) 11/21/2022 Active Liothyronine Sodium 5 MCG TAKE 2 TABLETS BY MOUTH EVERY DAY at NOON Oral for 90 Active Furosemide 40 MG Oral for 90 A ctive SOCIAL HISTORY Tobacco Use: Social History Observation [...] TOMI (obstructive sleep apnea) (G47.33) Active confirmed 13823940 Problem Type 2 diabetes mellitus without complications (E11.9) Active confirmed 659480413 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) Active confirmed 566586392 Problem High triglycerides (E78.1) Active confirmed 264107834 Problem Acute arthritis (M19.90) Active confirmed 31298575 Problem Morbid obesity (E66.01) Active confirmed 472148362 Problem History of depression (Z86.59) Active confirmed 761825597 Problem High cholesterol (E78.00) Active confirmed 37019282 Problem 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) Active confirmed 509488326 Problem BMI 45.0-49.9, adult (Z68.42) Active confirmed 163379078 Problem Hypertension, unspecified type (I10) Active confirmed 95855706 Problem Gastroesophageal reflux disease, unspecified whether esophagitis present (K21.9) Active confirmed 481941928 PLAN OF TREATMENT Future Test Test Name Order Date Comprehensive Metabolic Panel 11/21/2022 CBC 11/21/2022 H.PYLORI 11/21/2022 Insurance Providers Payer Name Payer Address Payer Phone Subscriber Number Group Number Insured Name Patient Relationship to Insured Coverage Start Date Coverage End Date Medicare Part B [address] [facility] [address] [id number] Alisha Hernandez Self - patient is the insured [facility] [address] [facility] [place] [place] [address] [phone] [id number] PLAN C Alisha Hernandez Self - patient is the insured MEDICAL (GENERAL) HISTORY Medical History History ICD Code Hypertension Diabetes Insulin Dep High Cholesterol High Triglycerides Sleep Apnea/Bypap Varicose Veins Low Back Syndrome Lumbar Disc Disorder Gallstones GERD H-Pylori Arthritis Irregular/Heavy Menstrual Periods Celiac Disease Depression Fibromyalgia Cyrus Asthma Surgical History Surgery Date(Month/Year) Cataract Surgery OU 2022 Lt Knee Replacement 2012 Lumpectomy 2015 Gallbladder 1970 TIA 195 Hysterectomy 1974 Hospitalization History Reason Date(Month/Year) See surgical hx
--- NOTE | 2024-09-01 11:54 | W.ED.WEAKNES ---
HPI - Weakness General: Chief complaint: Weakness Stated complaint: Weakness Time Seen by Provider: 09/01/24 11:00 History of Present Illness: 79-year-old female with a history of breast cancer, hypertension, hypothyroidism and insulin-dependent diabetes who presents emergency room with shortness of breath. She says she had surgery for breast cancer and is reportedly cancer free. She states that since treatment she has had worsening weakness and dizziness. This been going on for a few months. Also worsening shortness of breath with exertion. She does not have any acute pain. She does have chronic back pain. She says today she was more short of breath which is what prompted her to call an ambulance. No chest pain. No abdominal pain. No nausea or vomiting. Review of Systems Narrative: Constitutional symptoms: Negative except as documented in HPI. Skin symptoms: Negative except as documented in HPI. Eye symptoms: Negative except as documented in HPI. ENMT symptoms: Negative except as documented in HPI. Respiratory symptoms: Negative except as documented in HPI. Cardiovascular symptoms: Negative except as documented in HPI. Gastrointestinal symptoms: Negative except as documented in HPI. Genitourinary symptoms: Negative except as documented in HPI. Musculoskeletal symptoms: Negative except as documented in HPI. Neurologic symptoms: Negative except as documented in HPI. Psychiatric symptoms: Negative except as documented in HPI. Endocrine symptoms: Negative except as documented in HPI. 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 Chronic low back pain Breast cancer treated with lumpectomy and radiation Fibromyalgia Polyarthralgia Grief Multiple personality disorder Cyrus's thyroiditis (~06/2020) Diabetes mellitus with hyperglycemia, with long-term current use of insulin AB (asthmatic bronchitis) Essential (primary) hypertension Chronic bilateral thoracic back pain Lumbar disc disease with radiculopathy Surgical History History of lumpectomy of right breast (08/30/16) Right breast lumpectomy with axillary sentinel lymph node biopsy History of total bilateral knee replacement Hx of cholecystectomy Hx of vaginal hysterectomy Family History Unknown Adopted [place] in [place] Social History Smoking and tobacco/nicotine status: never used tobacco/nicotine Second hand smoke exposure: No Alcohol intake: never Substance/Drug Use: never Adopted: Yes Caregiver/support person: No Lives independently: Yes Marital status: / Number of children: 1 service: No Current occupational status: unemployed and retired Do you think of yourself as: Straight/Heterosexual Current gender identity: Female Physical Exam Narrative: EXAM NARRATIVE: General: Alert, no acute distress. Skin: Warm, dry. Head: Normocephalic, atraumatic. Neck: Supple, trachea midline. Eye: Extraocular movements are intact. Ears, nose, mouth and throat: mucosa moist. Cardiovascular: Regular, Normal peripheral perfusion. Respiratory: Lungs are clear to auscultation, respirations are non-labored, breath sounds are equal, Symmetrical chest wall expansion. Gastrointestinal: Soft, Nontender, Non distended Musculoskeletal: Normal ROM, no deformity. Neurological: Alert and oriented, No focal neurological deficit observed. Psychiatric: Cooperative, appropriate mood & affect. Course Vital Signs: Vital signs: Vital Signs Temperature 97.8 F 09/01/24 10:59 Pulse Rate 80 09/01/24 13:54 Respiratory Rate 22 H 09/01/24 10:59 Blood Pressure 166/100 09/01/24 13:54 Pulse Oximetry 99 09/01/24 13:54 MDM - Weakness Medical Decision Making Differential diagnosis for patient with shortness of breath includes but is not limited to and based on the above HPI, review of systems and physical exam: Pneumonia. Bronchitis. Asthma or COPD with acute exacerbation. Acute coronary syndrome / DE. Pulmonary embolism. Anxiety. Congestive heart failure. Viral infections including influenza and Covid-19. Atrial fibrillation. Anxiety. Pleural effusion. Pneumothorax. Orders placed to evaluate differential diagnosis based on the above differential, HPI and physical exam EKG: Time 1105. Rate 90. Normal sinus rhythm, No ST-T changes, no ectopy, normal HI & QRS intervals, This was reviewed and interpreted by myself the ER physician at 11:[address] head: No acute intracranial process. no intracranial hemorrhage, no evidence of infarct. no evidence of acute fracture.This was reviewed and interpreted by myself the ER physician. Chest x-ray: No acute process. No infiltrate. No pneumothorax. This was reviewed and interpreted by myself the emergency room physician. I also reviewed the radiology report. AB.45/35/82 with an O2 sat of 95% on room air. No hypoxemia. No CO2 retention. Lab Review: Laboratory results were reviewed and interpreted by myself the emergency room physician. No leukocytosis. No anemia. No thrombocytopenia. BUN/creatinine 24 and 0.9. No acute renal failure. CTA chest with PE protocol: No acute process. This was reviewed and interpreted by myself the emergency room physician. I also reviewed the radiology report. I reviewed the patient's medical record. Reexamination: I spoke with the patient at length prior to discharge. These issues are almost entirely chronic. She complains of some chronic dysphagia or trouble swallowing. Chronic dizziness. She follows with neurology and is concerned that the neurologist is not ordering all the test she needs to have done. We discussed the findings all of her workup today which was extremely extensive and completely negative. She has no oxygen requirements. No increased work of breathing. She is mildly hypertensive. Assessment and plan: Dyspnea Dizziness ? No acute findings today. - Discharged home - Discussed plan with patient. Answered any questions. - Evaluation and treatment of this problem were appropriate in the emergency setting. Lab Data 09/01/24 11:45 09/01/24 11:[address] 09/01/24 11:06 IMPRESSION: No acute intracranial abnormality. Chest X-Ray 09/01/24 11:07 IMPRESSION: No acute intrathoracic findings. Chest CTA 09/01/24 12:41 IMPRESSION: 1. No pulmonary embolism. 2. No pneumonia. 3. Atherosclerosis thoracic aorta. 4. No mediastinal or hilar adenopathy. 5. Prior cholecystectomy. Laboratory Results WBC 7.47 10^3/uL (3.29-11.43) 09/01/24 11:45 RBC 4.61 10^6/uL (3.85-5.65) 09/01/24 11:45 Hgb 13.70 g/dL (11.27-16.99) 09/01/24 11:45 Hct 41.1 % (36-47) 09/01/24 11:45 MCV 89.2 fl (85-98) 09/01/24 11:45 MCH 29.7 pg (27-33) 09/01/24 11:45 MCHC 33.3 g/dL (30-55) 09/01/24 11:45 RDW 13.2 % (12.1-15.1) 09/01/24 11:45 Plt Count 181 10^3/cmm (157-399) 09/01/24 11:45 MPV 10.7 fL (7.4-10.4) H 09/01/24 11:45 Neut % (Auto) 63.2 % 09/01/24 11:45 Lymph % (Auto) 25.6 % 09/01/24 11:45 [place] % (Auto) 8.8 % 09/01/24 11:45 Eos % (Auto) 1.5 % 09/01/24 11:45 Baso % (Auto) 0.8 % 09/01/24 11:45 Neut # (Auto) 4.72 10^3/uL (1.8-7.7) 09/01/24 11:45 Lymph # (Auto) 1.9 10^3/uL (0.8-4.8) 09/01/24 11:45 [place] # (Auto) 0.7 10^3/uL (0.2-0.9) 09/01/24 11:45 Eos # (Auto) 0.1 10^3/uL (0.0-0.8) 09/01/24 11:45 Baso # (Auto) 0.1 10^3/uL (0.0-0.1) 09/01/24 11:45 Nucleated RBC % (auto) 0 % 09/01/24 11:45 Nucleated RBCs # 0.0 /100WBC 09/01/24 11:45 Specimen Type Arterial 09/01/24 11:12 Sample Site Radial, right 09/01/24 11:12 ABG pH 7.45 (7.35-7.45) 09/01/24 11:12 ABG pCO2 35.5 mmHg (35-45) 09/01/24 11:12 ABG pO2 81.7 mmHg (80.0-100.0) 09/01/24 11:12 ABG PO2/FiO2 Ratio 389 09/01/24 11:12 ABG HCO3 24.5 mmol/L (22-26) 09/01/24 11:12 ABG O2 Saturation 97.3 09/01/24 11:12 ABG Base Excess 0.8 mmol/L (-2.0-2.0) 09/01/24 11:12 Adrián Test Pos 09/01/24 11:12 A-a O2 Gradient 3.1 mmHg (5-10) L 09/01/24 11:12 Hematocrit 43.5 % (37-47) 09/01/24 11:12 Hgb O2 Saturation 95.3 % (95-100) 09/01/24 11:12 Carboxyhemoglobin 1.2 %THgb (0.4-20.1) 09/01/24 11:12 Methemoglobin 0.8 % (0.4-1.5) 09/01/24 11:12 Total Hemoglobin 14.2 g/dL (12-16) 09/01/24 11:12 Sodium 137.0 mmol/L (131-143) 09/01/24 11:12 Potassium 4.3 mmol/L (3.5-5.0) 09/01/24 11:12 Glucose 165.0 mg/dL (70-115) H 09/01/24 11:12 Ionized Calcium 1.2 mmol/L (1.1-1.4) 09/01/24 11:12 O2 Delivery Device Room air 09/01/24 11:12 FiO2 21.0 % 09/01/24 11:12 Store Warehouse Associate ID [place] 09/01/24 11:12 Sodium 135 mmol/L (136-145) L 09/01/24 11:45 Potassium 4.3 mmol/L (3.5-5.1) 09/01/24 11:45 Chloride 97 mmol/L (98-107) L 09/01/24 11:45 Carbon Dioxide 23 mmol/L (22-29) 09/01/24 11:45 Anion Gap 19.3 (5-19) H 09/01/24 11:45 BUN 24 mg/dL (8-23) H 09/01/24 11:45 Creatinine 0.9 mg/dL (0.5-0.9) 09/01/24 11:45 GFR Calculation Not Reportable 09/01/24 11:45 Glucose 158 mg/dL (65-115) H 09/01/24 11:45 Calculated Osmolality 287 mOsm/kg (285-295) 09/01/24 11:45 Lactic Acid 3.0 mmol/L (0.5-2.2) H 09/01/24 11:45 Calcium 9.5 mg/dL (8.5-10.5) 09/01/24 11:45 Total Bilirubin 0.5 mg/dL (0.15-1.2) 09/01/24 11:45 AST 36 U/L (0-32) H 09/01/24 11:45 ALT 36 U/L (0-33) H 09/01/24 11:45 Alkaline Phosphatase 52 U/L (35-105) 09/01/24 11:45 Troponin T Baseline 11 ng/L (0-10) H 09/01/24 11:45 C-Reactive Protein 6.1 mg/L (0.0-4.9) H 09/01/24 11:45 NT-Pro-B Natriuret Pep < 36 pg/mL (0-450) 09/01/24 11:45 Total Protein 6.8 g/dL (6.6-8.7) 09/01/24 11:45 Albumin 4.1 g/dL (3.5-5.2) 09/01/24 11:45 Globulin 2.7 g/dL (1.3-4.6) 09/01/24 11:45 Urine Color Yellow (Yellow) 09/01/24 12:37 Urine Appearance Clear (CLEAR) 09/01/24 12:37 Urine pH 5.5 (5-7) 09/01/24 12:37 Ur Specific [place] 1.021 (1.005-1.030) 09/01/24 12:37 Urine Protein Negative (Negative) 09/01/24 12:37 Urine Glucose (UA) Negative (Normal) 09/01/24 12:37 Urine Ketones Trace (Negative) 09/01/24 12:37 Urine Blood Negative (Negative) 09/01/24 12:37 Urine Nitrate Negative (Negative) 09/01/24 12:37 Urine Bilirubin Negative (Negative) 09/01/24 12:37 Urine Urobilinogen 1.0 mg/dL (Negative) 09/01/24 12:37 Ur Leukocyte Esterase Negative (Negative) 09/01/24 12:37 Urine RBC 0-2 /hpf (0-2) 09/01/24 12:37 Urine WBC 0-5 /hpf (0-5) 09/01/24 12:37 Ur Squamous Epith Cells 6-10 /hpf (0-5) 09/01/24 12:37 Amorphous Sediment Not Reportable 09/01/24 12:37 Urine Bacteria Trace /hpf (NONE) 09/01/24 12:37 Hyaline Casts 0-4 /lpf H 09/01/24 12:37 All radiology interpretation(s) finalized by discharge Discharge Plan Discharge Patient Disposition: Home Clinical Impression: Dyspnea, Dizziness Condition: Stable Prescriptions: No Action Women's Multivitamin 18 mg-400 mcg- 500 mg-50 mcg tablet 1 tab PO DAILY lidocaine 3 % cream 1 applic topical BID PRN (Reason: Pain) (DME) Disposable nebulizer circuit See Rx Instructions .ROUTE .MEDSUPPLY Qty: 1 2RF Rx Instructions: As directed Saline Mist 0.65 % aerosol,spray 2 spray intranasal Q4H PRN (Reason: dry nasal passages/infection) Qty: 44 0RF (DME) Dexcom G7 Sensor Device See Rx Instructions .ROUTE .MEDSUPPLY Qty: 3 2RF Rx Instructions: change every 10 days (DME) Dexcom G7 Transformation Specialist Misc See Rx Instructions .ROUTE .MEDSUPPLY Qty: 1 0RF Rx Instructions: As directed fluticasone propionate 50 mcg/actuation spray,suspension 1 spray intranasal DAILY furosemide [Lasix] 40 mg tablet 40 mg PO QAM PRN (Reason: edema) Qty: 90 1RF (DME) walker with seat/brakes See Rx Instructions .Route .MEDSUPPLY Qty: 1 0RF Rx Instructions: As directed, length of need 99 months (DME) neb tubing, mouth piece, hardware See Rx Instructions .Route .MEDSUPPLY Qty: 1 0RF Rx Instructions: As directed (DME) pen needle, diabetic [TechLITE Pen Needle] 32 gauge x 5/32 needle See Rx Instructions .ROUTE .COMPLEX Qty: 100 6RF Dose Instruction: USE DIRECTED TWICE DAILY Rx Instructions: USE DIRECTED TWICE DAILY ammonium lactate 12 % lotion See Rx Instructions .ROUTE .COMPLEX Qty: 227 5RF Dose Instruction: APPLY TOPICALLY TO THE AFFECTED AREA ON LOWER EXTREMITIES FROM THE KNEES DOWN TWICE DAILY FOR DRY SKIN Rx Instructions: APPLY TOPICALLY TO THE AFFECTED AREA ON LOWER EXTREMITIES FROM THE KNEES DOWN TWICE DAILY FOR DRY SKIN. enalapril maleate 20 mg tablet 30 mg PO BEDTIME 30 Days Qty: 45 5RF insulin glargine [Lantus Solostar U-100 Insulin] 100 unit/mL (3 mL) insulin pen See Rx Instructions .ROUTE .COMPLEX Qty: 72 1RF Dose Instruction: inject 40 units (0.4ml) SUBCUTANEOUSLY TWICE DAILY Rx Instructions: Inject 40 units in the morning and 20 units in the evening. liothyronine 5 mcg tablet 10 mcg PO QAM levothyroxine [Synthroid] 200 mcg tablet 200 mcg PO QAM insulin lispro [Humalog KwikPen Insulin] 100 unit/mL insulin pen 25 unit SUBCUT 6XD PRN (Reason: blood sugar) Discharge Orders: Discharge ED (Routine); Ordered 09/01/24 Ordered By: Mary Alice Jaimes Referrals: Tomasz Drummond DO [Primary Care Provider, Family Practice] Patient Instructions: Dyspnea (ED), Opioid Safety, Pain Management, Patient Portal & [place] Instructions Activity Restrictions/Additional Instructions: Thank you for choosing [facility] for your healthcare needs today. You have been screened and evaluated and felt safe for discharge. Health conditions do change or evolve sometimes and as such it is important that you follow up with your Primary Doctor to be re checked, 3-5 days is a general good time frame for follow up. You are always welcome to return to the ED for re assessment if your symptoms are worsening or you have new concerns Print Language: Surinamese Coding Level of Care Code ED [place] Counselor for Chg Fwd Related Data Home Medications ?Medication ?Instructions ?Recorded ?Confirmed lidocaine 3 % topical cream 1 applic topical BID PRN Pain 09/09/23 09/01/24 fizueciy-svo-waye 18 mg-FA 400 1 tab PO DAILY 09/09/23 09/01/24 mcg-calcium 500 mg-vit K 50 mcg tablet (Women's Multivitamin) fluticasone propionate 50 1 spray intranasal DAILY 07/20/24 09/01/24 mcg/actuation nasal spray,suspension insulin lispro 100 unit/mL 25 unit SUBCUT 6XD PRN blood sugar 09/01/24 09/01/24 subcutaneous pen (Humalog KwikPen (U-100) Insulin) levothyroxine 200 mcg tablet 200 mcg PO QAM 09/01/24 09/01/24 (Synthroid) liothyronine 5 mcg tablet 10 mcg PO QAM 09/01/24 09/01/24 Previous Rx's ?Medication ?Instructions ?Recorded Disposable nebulizer circuit #1 ea 11/06/21 sodium chloride 0.65 % nasal spray 2 spray intranasal Q4H PRN dry 04/08/23 aerosol (Saline Mist) nasal passages/infection #44 mL furosemide 40 mg tablet (Lasix) 40 mg PO QAM PRN edema #90 tabs 05/14/23 walker with seat/brakes #1 ea 08/27/23 neb tubing, mouth piece, hardware #1 ea 11/30/23 pen needle, diabetic 32 gauge x #100 ea 12/25/23 (TechLITE Pen Needle) ammonium lactate 12 % lotion See Rx Instructions .Route 04/13/24 .COMPLEX #227 grams enalapril maleate 20 mg tablet 30 mg (1.5 x 20 mg) PO BEDTIME 30 05/25/24 days #45 tabs blood-glucose sensor (Dexcom G7 #3 ea 07/20/24 Sensor device) blood-glucose,systems administration analyst,cont #1 ea 07/20/24 (Dexcom G7 Transformation Specialist) insulin glargine 100 unit/mL (3 See Rx Instructions .Route 08/18/24 mL) subcutaneous pen (Lantus .COMPLEX #72 mL Solostar U-100 Insulin) Allergies Allergy/AdvReac Type Severity Reaction Status Date / Time tizanidine (From Zanaflex) Allergy Intermediate ADR-Itching Verified 08/24/24 09:37 albuterol Allergy ADR/ALGY-Pa Verified 08/24/24 09:37 lpitations amoxicillin Allergy na Verified 08/24/24 09:37 aspirin Allergy na Verified 08/24/24 09:37 codeine Allergy na Verified 08/24/24 09:37 fentanyl Allergy ADR-Confusi Verified 08/24/24 09:37 on gluten Allergy inflamatory Verified 08/24/24 09:37 response metformin Allergy na Verified 08/24/24 09:37 pineapple Allergy na Verified 08/24/24 09:37 psyllium Allergy sick, Verified 08/24/24 09:37 diarrhea, bloody stools red (food color) Allergy ADR-Hyperte Verified 08/24/24 09:37 nsion sulfamethoxazole (From Allergy na Verified 08/24/24 09:37 Bactrim) trimethoprim (From Bactrim) Allergy na Verified 08/24/24 09:37
[2024-09-01 11:58] LABS: Basophils # 0.1 10^3/uL (0.0-0.1); Basophils % 0.8 %; Eosinophils # 0.1 10^3/uL (0.0-0.8); Eosinophils % 1.5 %; Hematocrit 41.1 % (36-47); Lymphocytes # 1.9 10^3/uL (0.8-4.8); Lymphocytes % 25.6 %; Mean Corpuscular HGB Conc 33.3 g/dL (30-55); Mean Corpuscular Hemoglobin 29.7 pg (27-33); Mean Corpuscular Volume 89.2 fl (85-98); Mean Platelet Volume 10.7 fL (7.4-10.4); Monocytes # 0.7 10^3/uL (0.2-0.9); Monocytes % 8.8 %; Neutrophils # 4.72 10^3/uL (1.8-7.7); Neutrophils % 63.2 %; Nucleated Red Blood Cells % 0 %; Platelet Count 181 10^3/cmm (157-399); Red Blood Count 4.61 10^6/uL (3.85-5.65); Red Cell Distribution Width 13.2 % (12.1-15.1); White Blood Count 7.47 10^3/uL (3.29-11.43)
[2024-09-01 12:20] LABS: Troponin(5th) Baseline 11 ng/L (0-10)
[2024-09-01 12:25] LABS: Alanine Aminotransferase 36 U/L (0-33); Albumin Level 4.1 g/dL (3.5-5.2); Alkaline Phosphatase 52 U/L (35-105); Anion Gap 19.3 (5-19); Aspartate Amino Transferase 36 U/L (0-32); Blood Urea Nitrogen 24 mg/dL (8-23); C Reactive Protein 6.1 mg/L (0.0-4.9); Calcium 9.5 mg/dL (8.5-10.5); Carbon Dioxide 23 mmol/L (22-29); Chloride 97 mmol/L (98-107); Creatinine Clr Calc Pharmacy 61.4022; Globulin 2.7 g/dL (1.3-4.6); Glucose 158 mg/dL (65-115); NT Pro B Type Natriuretic Pept < 36 pg/mL (0-450); Osmolality Calculated 287 mOsm/kg (285-295); Potassium 4.3 mmol/L (3.5-5.1); Sodium 135 mmol/L (136-145); Total Bilirubin 0.5 mg/dL (0.15-1.2); Total Protein 6.8 g/dL (6.6-8.7)
--- NOTE | 2024-09-01 12:41 | CT_ITS ---
WS: [id number] CT CHEST ANGIOGRAPHY WITH REFORMATS HISTORY: Shortness of breath, cancer history TECHNIQUE: Contiguous axial images are obtained through the chest during arterial injection of intravenous contrast. Images are reconstructed to evaluate the pulmonary arteries. MIP imaging also reviewed. All CT scans at [facility] use at least one of these dose optimization techniques: automated exposure control; mA and/or kV adjustment per patient size (includes targeted exams where dose is matched to clinical indication); or iterative reconstruction. CONTRAST: Omnipaque 350; 100 mL IV. DLP: 480.74 mGy.cm COMPARISON: 04/22/2024 Total opacification of the pulmonary arteries. Central pulmonary arteries are well-opacified and normal caliber. Mildly ectatic thoracic aorta. Atherosclerotic plaque. No thoracic aortic aneurysm. No dissection. No pericardial or pleural effusions. No RIGHT heart strain. Mild interstitial thickening throughout both lungs. This may be due to poor inspiration or very small amount of fluid overload. No mass identified. No mediastinal or hilar adenopathy. Small hiatal hernia. Hepatic steatosis and hepatomegaly. The liver is incompletely included on on the chest CT angiogram. No adrenal mass. Prior cholecystectomy. Postop seroma RIGHT breast lumpectomy site 2.5 x 2.8 cm is stable. LEFT mastectomy. Osteopenia. CT/CT angio chest PE protcl [id number] IMPRESSION: 1. No pulmonary embolism. 2. No pneumonia. 3. Atherosclerosis thoracic aorta. 4. No mediastinal or hilar adenopathy. 5. Prior cholecystectomy.
[2024-09-01 12:56] LABS: Bilirubin Urine Negative (Negative); Blood Urine Negative (Negative); Glucose Urine UA Negative (Normal); Ketones Urine Trace (Negative); Leukocyte Esterase Urine Negative (Negative); Nitrate Urine Negative (Negative); Protein Urine Negative (Negative); Specific Gravity, Urine 1.021 (1.005-1.030); Urine Appearance Clear (CLEAR); Urine Color Yellow (Yellow); pH Urine 5.5 (5-7)
[2024-09-01 12:59] LABS: Bacteria Urine Trace /hpf; Hyaline Casts Urine 0-4 /lpf; RBC Urine 0-2 /hpf (0-2); WBC Urine 0-5 /hpf (0-5)
[2024-09-01] MEDS: iohexol 350 mg/mL 500 mL Btl (per mL) IV (13:06)
[2024-09-01 13:08] LABS: Add Urine Culture? No
[2024-09-01 13:41] LABS: Reflex Lactate Order REFLEX LACTIC ORDERD
[2024-09-01 13:54] VITALS: BP 166/100; PULSE 80; O2SAT 99
== END 2024-09-01 14:28 | disposition home or self-care (01) ==
PROVIDERS: Emergency Provider Emergency Medicine; PCP Family Medicine
DX: R06.00 Dyspnea, unspecified (principal); R42 Dizziness and giddiness; Z79.4 Long term (current) use of insulin; E11.9 Type 2 diabetes mellitus without complications; I10 Essential (primary) hypertension; Z85.3 Personal history of malignant neoplasm of breast
CPT/HCPCS: 36415; 36600; 70450; 71045; 71275; 80051; 80053; 81001; 82330; 82805; 83605; 83880; 84484; 85025; 86140; 87040; 93005; 99285

== ENCOUNTER 2024-09-07 05:00 | Outpatient (RCR) | payer MEDICARE, SELFPAY | END 2024-10-07 23:59 | disposition home or self-care (01) | LOC: APT 05:00 | PROVIDERS: PCP Family Medicine; Visit Provider Specialist | DX: M54.6 Pain in thoracic spine (principal); G89.29 Other chronic pain | CPT/HCPCS: 97110; 97161 ==

== ENCOUNTER 2024-09-12 13:11 | Emergency (ER) | payer MEDICARE, SELFPAY ==
--- OUTSIDE RECORDS SUMMARY | 2011-02-11 02:09 | XMS_ITS | Continuity of Care Document ---
Author Organization [place] [facility] Address [address] [place] [address] Phone Care Team Providers Care Veterinary Parasitologist Name Role Phone Stas Grover MD Unavailable [...] D 50,000 unit Cap take 1 capsule ([id number]) by oral route 3 times Week - [...] Location Reason(s) For Visit Diagnoses Date Provider [facility], [address], [place], [place], [address] [place] [address], tel:[phone] No Information 2010 Lenore Damon [facility] [address] [place] [address] & [address] [place] [address], [address] [place] [address], . tel:[phone] [facility], [address], [place], [address] [place] [address], tel:[phone] No Information 2010 Sepideh Dunn. [address] [place] [address], [address] [place] [address], . tel:[phone] [facility], [address], [place], [address] [place] [address], tel:[phone] No Information 2010 Sepideh Dunn. [address] [place] [address], [address] [place] [address], . tel:[phone] [facility], [address], [place], [address] [place] [address], tel:[phone] No Information 2010 Lenore Damon [facility], [address] [place] [address] 100 [address], [place], [address] [place] [address], . tel:[phone] [facility], [address], [place], [address] [place] [address], tel:[phone] establish care recently movered here from [place] (chief complaint) No Information 2010 Lenroe Mcclelland. [facility] [address] [facility], [place] [address], [place], [place], [id number], [place]. tel:[phone] Family History Family Member Type Diagnosis Age At Onset No Information Payers Payer name Insurance type Covered democrat ID Authoriza tion(s) [place] [id number] Social History Type Description Quantity Date Captured [...]
[2024-09-12] VITALS (10 sets, daily range): BP systolic 135–180; BP diastolic 54–91; PULSE 74–90; RESP 18–27; TEMP 36.8; O2SAT 97–99; BMI 46.0
--- OUTSIDE RECORDS SUMMARY | 2024-09-12 13:16 | XMS_ITS | Data Portability ---
Author Organization CHERYL Hamm [facility] [place] [facility] Address [address] [address] Assessment No assessment recorded. Plan of Treatment Reminders Order Date Submit Date Provider Last Modified By Organization Details Last Modified Time Details Appointments None recorded. Lab None recorded. Referral None recorded. Procedures None recorded. Surgeries None recorded. Imaging None recorded. Medication Orders levalbutero l concentrate 1.25 mg/0.5 mL solution for nebulizatio n 2023 024 [facility] [place], [address] [place] [address], [address], 4 10:15:58 cefdinir 300 mg capsule 2023 024 [facility] [place], [address] [place] [address], [address], 4 10:15:58 Patient TargetsNo targets recorded. Patient InstructionsNo instructions recorded. Reason for Referral None Reported. 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 Medical Equipment None Reported. Allergies Allergen ID Allergen Name Allergen Category Reaction Reaction Severity Criticality Documentation Date Start Date Code Code System Note Provider Name and Address Organization Details Recorded Time 38217 aspirin medicatio n dyspnea Not available Not available 10/05/2022 1191 RxNorm React ion: Asthm a; Comme nt: Recor ded 05/27 7:07A M by Tamchung lugo Green , Offic e Visit ; Promo iris; Signi fican ce: *; Reaso n: Drug aller gy; ; Not Available [facility] 3 02:27:01 86731 pineapple allergeni c extract food,medi cation anaphylax is Not available Not available 10/05/2022 99958 5 RxNorm React ion: Anaph ylaxi s; Comme nt: Recor ded 05/27 7:07A M by Karla lugo Green , Offic e Visit ; Promo iris; Signi fican ce: *; ; Not Available [facility] 3 02:27:01 85014 animal dander environme nt other Not available Not available 10/05/2022 06400 UNK React ion: CATS; Comme nt: Recor ded 05/27 7:07A M by Tamat lugo Green , Offic e Visit ; Promo iris; Signi fican ce: *; ; Not Available [facility] 3 02:27:02 45232 albuterol sulfate medicatio n other Not available Not available 10/05/2022 24509 3 RxNorm React ion: _hype r_ and narcisoki ness; Comme nt: Recor ded 05/27 7:07A M by Tamat lugo Green , Offic e Visit ; Promo iris; Signi fican ce: *; Reaso n: Drug aller gy; ; Not Available [facility] 3 02:27:02 36315 metformin hydrochlo ride medicatio n Not available Not available Not available 10/05/2022 51477 3 RxNorm Comme nt: Recor ded 05/27 7:07A M by Tamat lugo Green , Offic e Visit ; Promo iris; Signi ficanthony ce: *; Reaso n: Drug aller gy; ; Not Available [facility] 3 02:27:02 94000 penicilli n V potassium medicatio n Not available Not available Not available 10/05/2022 53683 5 RxNorm Comme nt: Recor ded 05/27 7:07A M by Tamat lugo Green , Offic e Visit ; Promo iris; Signi fican ce: *; Reaso n: Drug aller gy; ; Not Available [facility] 3 02:27:02 53304 codeine phosphate medicatio n irregular heart rate Not available Not available 10/05/2022 2672 RxNorm React ion: Irreg ular heart rate; Comme nt: Recor ded 05/27 7:07A M by Tamat lugo Green , Offic e Visit ; Promo iris; Signi fican ce: *; Reaso n: Drug aller gy; ; Not Available [facility] 3 02:27:02 49074 Victoza medicatio n headache Not available Not available 10/05/2022 49198 3 RxNorm React ion: Heada zechariah;c onsti patio n; Comme nt: Recor ded 05/27 7:07A M by Tamat lugo Green , Offic e Visit ; Promo iris; Signi fican ce: *; Reaso n: Drug aller gy; ; Not Available [facility] 3 02:27:02 56600 doxycycli ne Not available rash Not available Not available 03/29/2023 3640 RxNorm EBONY CHERYL [facility] [place] 4 09:17:14 Medications Name Sig Start [...] three times daily, as needed 2022 active 32570; Recorded 3 1:04PM by Emily Garcia RN [...] Vial; Not Available Not Available Not Available [employer] Ultra System Kit three times daily 2015 active Dx-E11.8 meter,roxy cets,stri ps VO JR/tn; Recorded 9 10:09AM by Annalise Dickerson LPN, Office Visit; Refill Quantity: 1; QS; Not Available Not Available Not Available Novolog U-100 Insulin aspart three times a day with meals active 0; Recorded 3 7:07AM by Ebony Dominguez, Office Visit; Not Available Not Available Not Available 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 RM/SE; 9; Recorded 9 10:09AM by Annalise [...] Heart rate Respiratory rate Body temperature Systolic And Diastolic Provider Name and Address Organization Details Last Updated DateTime 4 160.02 cm 46.4 kg/m2 440432. 2 g 99 % 99 % 99 /min 17.99 /min 97.5 [degF] 147/65 mm[Hg] [facility]UE[facility] 4 09:16:27 Social History None recorded. Functional [...] virus, trivalent, preservative 3 completed Not Available Pending sale to [facility] 10/05/2022 02:51:58 pneumococcal polysaccharide PPV23 0 completed Not Available Pending sale to [facility] 10/05/2022 02:51:58 Influenza, split virus, trivalent, preservative 4 completed Not Available Pending sale to [facility] 10/05/2022 02:51:58 Past Encounters Encounter ID Performer Location Encounter Start Date Encounter Closed Date Diagnosis/Indication Diagnosis SNOMED-CT Code Diagnosis ICD10 Code Diagnosis Note [id number] MARTI HAYNES [facility] ([facility] [address] [place] [phone] 03/29/2023 09:05:25 03/29/2023 09:50:58 Acute maxillary sinusitis 55760490 J01.00 Instructed to increase fluids and continue tessalon perles Asthma 511515120 J45.90 9 Health Concerns Section Related Observation LastModified by Organization Detai ls LastModified Time None Recorded Concern Status LastModified by Organization Details LastModified Time None Recorded Advance Directives Directive None Recorded Payers Insurance Date Sequence Insurance Name Policy Number Policy Ferreira Covered Member ID Ferreira Member ID Guarantor Name 04/25/2023 [place] - [facility] (MEDICARE) Alisha V Mary [id number] Alisha V [place] 06/03/2023 1 [employer] (MEDICARE SUPPLEMENT) Alisha V Mary [id number] Alisha V Mary 04/25/2023 1 [place]IC[place]: [employer] Alisha V Mary [id number] Alisha V Mary 04/25/2023 2 [facility] Alisha V [place] [id number] Alisha V [place] 04/25/2023 2 [facility] Alisha V Mayr [id number] Alisha V Mary Notes Date Note Type Note Provider Name and Address Organization Details Recorded Time 03/29/2023 text/html CoughReported bypatient.Quality:d ry Severity:worsening; pain with cough; moderate Duration:constant; acute (<3 weeks) Onset/Timing:sudden ; becomes worse as the day goes on Associated Symptoms:no nausea; no vomiting; no sputum production;fever;sh ortness of breath;tiredness 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
--- OUTSIDE RECORDS SUMMARY | 2024-09-12 13:16 | XMS_ITS | Patient Health Record ---
Author Organization [facility] Address [address] [place], [place] [address] Care Team Providers Care See Supervisor Name Role Phone Anna Pateln Unavailable [phone] Evan Reynolds MD Unavailable Unavailable ALLERGIES Allergen [...] TOMI (obstructive sleep apnea) (G47.33) Active confirmed 49779284 Problem Type 2 diabetes mellitus without complications (E11.9) Active confirmed 479214509 Problem jail (current) use of insulin (Z79.4) Active confirmed 912755015 Problem High triglycerides (E78.1) Active confirmed 207897824 Problem Acute arthritis (M19.90) Active confirmed 06748628 Problem Morbid obesity (E66.01) Active confirmed 931240656 Problem History of depression (Z86.59) Active confirmed 244384851 Problem High cholesterol (E78.00) Active confirmed 91936414 Problem 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) Active confirmed 717536176 Problem BMI 45.0-49.9, adult (Z68.42) Active confirmed 415799540 Problem Hypertension, unspecified type (I10) Active confirmed 58799980 Problem Gastroesophageal reflux disease, unspecified whether esophagitis present (K21.9) Active confirmed 145076115 PLAN OF TREATMENT Future Test Test Name Order Date Comprehensive Metabolic Panel 11/21/2022 CBC 11/21/2022 H.PYLORI 11/21/2022 Insurance Providers Payer Name Payer Address Payer Phone Subscriber Number Group Number Insured Name Patient Relationship to Insured Coverage Start Date Coverage End Date Medicare Part B [address] [facility] [id number] Alisha Hernandez Self - patient is the insured [facility] [address] [facility] [place] [place] [address] [phone] [id number] PLAN C Alisha Hernandez Self - patient [...]
--- OUTSIDE RECORDS SUMMARY | 2024-09-12 13:16 | XMS_ITS | Patient Health Record ---
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 Name Role Phone Stas Fulton MD Primary Care Provider Iván Wong [phone] Results Component Value Reference Range Notes IH Lumbosacral Spine AP/Lat - 33420 (Not yet reviewed by provider) Interpretation: Performing Lab: Notes/Report: See Below For Report Lumbosacral Spine AP/Lat Diagnosis Description: Other intervertebral disc degeneration, lumbar region IH Lumbosacral Spine AP/Lat - 80515 (Not yet reviewed by provider) Interpretation: Performing Lab: Notes/Report: See Below For Report Lumbosacral Spine AP/Lat Diagnosis Description: Radiculopathy, lumbar region Lumbosacral Spine AP/Lat-721 00 (Not yet reviewed by provider) Interpretation: Performing Lab: Notes/Report: [id number]&org=iSite Schedule Confirmation (Not y et reviewed by provider) Interpretation: Performing Lab: Notes/Report: MRI Lumbar Spine w/o Cont Schedule Confirmation (Not y et reviewed by provider) Interpretation: Performing Lab: Notes/Report: MRI Lumbar Spine w/o Cont MRI Lumbar Spine w/o Cont-72 148 (Not yet reviewed by provider) Interpretation: Performing Lab: Notes/Report: See Below For Report MRI Lumbar Spine w/o Cont Diagnosis Description: Other intervertebral disc degeneration, lumbar region Read See Below For Report Reason For Referral No Information Medications Medication [...] Problem Status W/U Status Risk Notes Problem 51649749 Other chronic pain (G89.29) Active confirmed Problem Lumbar radiculopathy (089040939) Lumbar radiculopathy (M54.16) Active confirmed Problem Kyphosis (923775851) Kyphosis (M40.209) Active confirmed Problem Scoliosis (792060411) Scoliosis (M41.9) Active confirmed Problem Hip pain (37691060) Hip pain (M25.559) Active confirmed Problem Degeneration of lumbar intervertebral disc (50670556) Degenerative disc disease, lumbar (M51.36) Active confirmed Problem Degeneration of lumbar intervertebral disc (80892116) Disc degeneration, lumbar (M51.36) Active confirmed Vital Signs Heart Rate 92 /min 10/23/2023 Temperature 97.6 degrees Fahrenheit 10/23/2023 Respiratory Rate 18 /min 10/23/2023 Blood pressure diastolic 74 mm Hg 10/23/2023 Oximetry 97 % 10/23/2023 Height-cm 165.1 cm 10/23/2023 Weight-kg 118.84 kg 10/23/2023 Height 65 in 10/23/2023 Blood pressure systolic 132 mm Hg 10/23/2023 Weight 262 lbs 10/23/2023 BMI 43.59 kg/m2 10/23/2023 Encounters Encounter Location Date Provider Diagnosis [facility] [address] [place] [address] 10/22/2023 Iván Irizarry Lumbar radiculopathy M54.16 ; Lumbar pain M54.50 and Fall W19.XXXA [facility] [address] [address] 10/23/2023 Iván Irizarry Lumbar radiculopathy M54.16 ; Scoliosis M41.9 ; Disc degeneration, lumbar M51.36 and Lumbar stenosis M48.061 Assessments Encounter Date Diagnosis (ICD Code) Assessment Notes Treatment Notes Treatment Clinical Notes Section Notes 10/22/2023 Lumbar radiculopathy (ICD-10 - M54.16) 10/23/2023 Lumbar radiculopathy (ICD-10 - M54.16) 10/23/2023 Scoliosis (ICD-10 - M41.9) 10/23/2023 Disc degeneration, lumbar (ICD-10 - M51.36) 10/22/2023 Lumbar pain (ICD-10 - M54.50) 10/23/2023 Lumbar stenosis (ICD-10 - M48.061) 10/22/2023 [...] Test Test Name Order Date Lumbosacral Spine AP/Lat-75871 4 Lumbosacral Spine AP/Lat-74496 4 MRI Lumbar Spine w/o Cont-90860 09/10/19 24 MRI Lumbar Spine w/o Cont-71650 10/09/19 24 MRI Thoracic Spine w/o Cont-27601 2019 MRI Thoracic Spine w/o Cont-70083 2019 Schedule Confirmation 10/09/2023 Schedule Confirmation 10/09/2023 IH Lumbosacral Spine AP/Lat - 91632 10/08 IH Lumbosacral Spine AP/Lat - 55391 03/2023 Insurance Providers Payer Name Payer Address Payer Phone Subscriber Number Group Number Insured Name Patient Relationship to Insured Coverage Start Date Coverage End Date [place] [address] [place] [phone] [id number] JULES KHOURY Self - patient is the insured [facility] Medicare Supplement [address] [place] [address] [id number] JULES KHOURY Self - patient is the insured Medical (General) History Medical History History ICD Code Measles Mumps Chicken Pox Whooping Cough Pneumonia Heart Disease Arthritis Blood/ Plasma Transfusion Back trouble High Blood pressure asthma hives bronchitis Mitral Valve Prolaspe sjogren syndrome diabetes mellitus fibromyalgia myofascial pain syndrome Osteoarthritis Surgical History Surgery Date(Month/Year) Right Breast Total Knee Replacement Knee 2009 SIDNEY 1976 Cholecystectomy 1973 Left Shoulder x 2
--- NOTE | 2024-09-12 13:23 | ECG_ITS ---
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
--- NOTE | 2024-09-12 14:06 | W.ED.ARRPALP ---
HPI - Arrhythmia/Palpitations General: Chief Complaint: Arrhythmia/Palpitations Stated Complaint: high hr Time Seen by Provider: 09/12/24 13:58 Source: patient Mode of arrival: ambulatory Limitations: no limitations History of Present Illness: 79yo female presents for evaluation of palpitations. Patient reports over the weekend while she has been laying in bed sleeping, she has awakened to her heart racing. States that it is between 180 and 200 bpm. States the elevated heart rate lasted approximately 2 hours. States she has been eating and drinking appropriately with no extra caffeine. Patient denies recent illness, cough, congestion, any other concern at this time. Patient is nontoxic in appearance. Vital signs are stable. Associated symptoms: Deny vomiting Related Data Home Medications ?Medication ?Instructions ?Recorded ?Confirmed lidocaine 3 % topical cream 1 applic topical BID PRN Pain 09/09/23 09/01/24 gqfutqne-qbu-abmg 18 mg-FA 400 1 tab PO DAILY 09/09/23 09/01/24 mcg-calcium 500 mg-vit K 50 mcg tablet (Women's Multivitamin) fluticasone propionate 50 1 spray intranasal DAILY 07/20/24 09/01/24 mcg/actuation nasal spray,suspension insulin lispro 100 unit/mL 25 unit SUBCUT 6XD PRN blood sugar 09/01/24 09/01/24 subcutaneous pen (Humalog KwikPen (U-100) Insulin) levothyroxine 200 mcg tablet 200 mcg PO QAM 09/01/24 09/01/24 (Synthroid) liothyronine 5 mcg tablet 10 mcg PO QAM 09/01/24 09/01/24 Previous Rx's ?Medication ?Instructions ?Recorded Disposable nebulizer circuit #1 ea 11/06/21 sodium chloride 0.65 % nasal spray 2 spray intranasal Q4H PRN dry 04/08/23 aerosol (Saline Mist) nasal passages/infection #44 mL furosemide 40 mg tablet (Lasix) 40 mg PO QAM PRN edema #90 tabs 05/14/23 walker with seat/brakes #1 ea 08/27/23 neb tubing, mouth piece, hardware #1 ea 11/30/23 pen needle, diabetic 32 gauge x #100 ea 12/25/23/32 (TechLITE Pen Needle) ammonium lactate 12 % lotion See Rx Instructions .Route 04/13/24 .COMPLEX #227 grams enalapril maleate 20 mg tablet 30 mg (1.5 x 20 mg) PO BEDTIME 30 05/25/24 days #45 tabs blood-glucose sensor (Dexcom G7 #3 ea 07/20/24 Sensor device) blood-glucose,dog track kennel manager,cont #1 ea 07/20/24 (Dexcom G7 Pocket Builder) insulin glargine 100 unit/mL (3 See Rx Instructions .Route 08/18/24 mL) subcutaneous pen (Lantus .COMPLEX #72 mL Solostar U-100 Insulin) Allergies Allergy/AdvReac Type Severity Reaction Status Date / Time tizanidine (From Zanaflex) Allergy Intermediate ADR-Itching Verified 09/12/24 13:20 albuterol Allergy ADR/ALGY-Pa Verified 09/12/24 13:20 lpitations amoxicillin Allergy na Verified 09/12/24 13:20 aspirin Allergy na Verified 09/12/24 13:20 codeine Allergy na Verified 09/12/24 13:20 fentanyl Allergy ADR-Confusi Verified 09/12/24 13:20 on gluten Allergy inflamatory Verified 09/12/24 13:20 response metformin Allergy na Verified 09/12/24 13:20 pineapple Allergy na Verified 09/12/24 13:20 psyllium Allergy sick, Verified 09/12/24 13:20 diarrhea, bloody stools red (food color) Allergy ADR-Hyperte Verified 09/12/24 13:20 nsion sulfamethoxazole (From Allergy na Verified 09/12/24 13:20 Bactrim) trimethoprim (From Bactrim) Allergy na Verified 09/12/24 13:20 Review of Systems Const: Denies: fever(s), chills or body aches Card: Reports: palpitations (none at this time); Denies: chest pain Resp: Denies: dyspnea GI: Denies: vomiting : Denies: difficulty voiding PFSH ED PFSH: Medical History (Updated 09/12/24 @ 16:16 by MARTI Montalvo) Psychiatric care Type 2 diabetes mellitus with complication Hypertension, essential Breast cancer Obesity Intolerance to cold Goiter, nontoxic, multinodular Elevated transaminase level 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 Chronic low back pain Breast cancer treated with lumpectomy and radiation Fibromyalgia Polyarthralgia Grief Multiple personality disorder Cyrus's thyroiditis (~06/2020) Diabetes mellitus with hyperglycemia, with long-term current use of insulin AB (asthmatic bronchitis) Essential (primary) hypertension Chronic bilateral thoracic back pain Lumbar disc disease with radiculopathy Surgical History History of lumpectomy of right breast (08/30/16) Right breast lumpectomy with axillary sentinel lymph node biopsy History of total bilateral knee replacement Hx of cholecystectomy Hx of vaginal hysterectomy Family History Unknown Adopted [place] in [place] Social History Smoking and tobacco/nicotine status: never used tobacco/nicotine Second hand smoke exposure: No Alcohol intake: never Substance/Drug Use: never Adopted: Yes Caregiver/support person: No Lives independently: Yes Marital status: / Number of children: 1 service: No Current occupational status: unemployed and retired Do you think of yourself as: Straight/Heterosexual Current gender identity: Female Physical Exam Const: COMMON NORMALS: no acute distress, patient oriented x3 and alert GENERAL APPEARANCE: cooperative NUTRITIONAL APPEARANCE: obese ORIENTATION/CONSCIOUSNESS: Yes awake OTHER: Patient is laying reclined on the stretcher no acute distress. She is able to give history with no difficulty. She is interactive with exam appropriately. No family is at bedside at time of exam HENMT: COMMON NORMALS: normocephalic and atraumatic HEAD & SCALP: normocephalic and atraumatic Neck/C-Spine: COMMON NORMALS: full ROM Chest: CHEST: Yes Symmetrical chest wall rise Resp: COMMON NORMALS: normal respiratory effort and clear to auscultation bilaterally EFFORT & INSPECTION: Yes able to speak in complete sentences AUSCULTATION: clear to auscultation bilaterally Cardio: COMMON NORMALS: regular rate and regular rhythm RATE: regular rate RHYTHM: regular rhythm Neuro: COMMON NORMALS: patient oriented x3 SENSORIUM/ORIENTATION: Yes alert Psych: COMMON NORMALS: cooperative ATTITUDE: Yes calm Course ED course: No leukocytosis, white blood cell count is 7.26. No significant electrolyte abnormalities noted. No renal abnormalities noted. Liver enzymes are noted to be stable. TSH is elevated at 4.63, increased from her previous of 0.88 on 07/20/2024. Vital Signs: Vital signs: Vital Signs Temperature 98.3 F 09/12/24 13:16 Pulse Rate 80 09/12/24 16:00 Respiratory Rate 19 H 09/12/24 16:00 Blood Pressure 150/68 09/12/24 16:00 Pulse Oximetry 98 09/12/24 16:00 Oxygen Delivery Me thod Room Air 09/12/24 15:12 MDM - Arrhythmia/Palpitations Medical Decision Making 79yo female with a history of breast cancer, hypertension, hypothyroidism, chronic back pain, and insulin-dependent diabetes here today for evaluation of 2 episodes of palpitation that has occurred over the weekend. Both episodes have occurred while she is laying in bed and lasted approximately 2 hours. Reports the heartbeat was between 180 and 200 bpm, self resolved. Patient denies recent illness, cough, any difficulty breathing that is outside of her normal, increased caffeine intake, any other concerns at this time. Patient is nontoxic in appearance. Vital signs are stable. Differential diagnoses of the palpitations/arrhythmia include but are not limited to: Electrolyte abnormalities, TSH abnormalities, pericardial effusion, dehydration EKG did show sinus rhythm with a vent rate of 80. CBC and CMP with no acute concerning abnormalities noted. TSH is noted to be mildly elevated at 4.63. Chest x-ray with no acute abnormalities noted. Discussed these findings with patient. Advised that she may need to wear a Holter monitor to capture these episodes. Patient reports that she just got off of the Holter monitor, but did not have any of the episodes while the monitor was in place. Will still place another order due to the palpitations. Patient does state that she will be following up with cardiology and call their office tomorrow. Encourage patient to contact them as soon as possible. Return precautions provided. Patient states understanding and has no further questions or concerns at this time. Differential Diagnosis Likely palpitations, sinus tachycardia and artial fibrillation Lab Data I reviewed the patient's lab results. 09/12/24 14:05 09/12/24 14:05 Radiology Impressions Chest X-Ray 09/12/24 14:29 IMPRESSION: No acute findings. Laboratory Results WBC 7.26 10^3/uL (3.29-11.43) 09/12/24 14:05 RBC 4.54 10^6/uL (3.85-5.65) 09/12/24 14:05 Hgb 13.80 g/dL (11.27-16.99) 09/12/24 14:05 Hct 41.1 % (36-47) 09/12/24 14:05 MCV 90.5 fl (85-98) 09/12/24 14:05 MCH 30.4 pg (27-33) 09/12/24 14:05 MCHC 33.6 g/dL (30-55) 09/12/24 14:05 RDW 13.3 % (12.1-15.1) 09/12/24 14:05 Plt Count 171 10^3/cmm (157-399) 09/12/24 14:05 MPV 11.0 fL (7.4-10.4) H 09/12/24 14:05 Neut % (Auto) 59.6 % 09/12/24 14:05 Lymph % (Auto) 27.4 % 09/12/24 14:05 [place] % (Auto) 9.6 % 09/12/24 14:05 Eos % (Auto) 2.1 % 09/12/24 14:05 Baso % (Auto) 0.7 % 09/12/24 14:05 Neut # (Auto) 4.33 10^3/uL (1.8-7.7) 09/12/24 14:05 Lymph # (Auto) 2.0 10^3/uL (0.8-4.8) 09/12/24 14:05 [place] # (Auto) 0.7 10^3/uL (0.2-0.9) 09/12/24 14:05 Eos # (Auto) 0.2 10^3/uL (0.0-0.8) 09/12/24 14:05 Baso # (Auto) 0.1 10^3/uL (0.0-0.1) 09/12/24 14:05 Nucleated RBC % (auto) 0 % 09/12/24 14:05 Nucleated RBCs # 0.0 /100WBC 09/12/24 14:05 Sodium 136 mmol/L (136-145) 09/12/24 14:05 Potassium 4.3 mmol/L (3.5-5.1) 09/12/24 14:05 Chloride 96 mmol/L (98-107) L 09/12/24 14:05 Carbon Dioxide 25 mmol/L (22-29) 09/12/24 14:05 Anion Gap 19.3 (5-19) H 09/12/24 14:05 BUN 16 mg/dL (8-23) 09/12/24 14:05 Creatinine 0.9 mg/dL (0.5-0.9) 09/12/24 14:05 GFR Calculation Not Reportable 09/12/24 14:05 Glucose 185 mg/dL (65-115) H 09/12/24 14:05 Calculated Osmolality 288 mOsm/kg (285-295) 09/12/24 14:05 Calcium 9.4 mg/dL (8.5-10.5) 09/12/24 14:05 Total Bilirubin 0.3 mg/dL (0.15-1.2) 09/12/24 14:05 AST 36 U/L (0-32) H 09/12/24 14:05 ALT 41 U/L (0-33) H 09/12/24 14:05 Alkaline Phosphatase 49 U/L (35-105) 09/12/24 14:05 Total Protein 7.1 g/dL (6.6-8.7) 09/12/24 14:05 Albumin 4.0 g/dL (3.5-5.2) 09/12/24 14:05 Globulin 3.1 g/dL (1.3-4.6) 09/12/24 14:05 TSH 4.63 uIU/mL (0.27-4.20) H 09/12/24 14:05 XR interpretation done by ED provider, pending radiology final review Discharge Plan Discharge Patient Disposition: Home Clinical Impression: Intermittent palpitations Condition: Stable Prescriptions: No Action Women's Multivitamin 18 mg-400 mcg- 500 mg-50 mcg tablet 1 tab PO DAILY lidocaine 3 % cream 1 applic topical BID PRN (Reason: Pain) (DME) Disposable nebulizer circuit See Rx Instructions .ROUTE .MEDSUPPLY Qty: 1 2RF Rx Instructions: As directed Saline Mist 0.65 % aerosol,spray 2 spray intranasal Q4H PRN (Reason: dry nasal passages/infection) Qty: 44 0RF (DME) Dexcom G7 Sensor Device See Rx Instructions .ROUTE .MEDSUPPLY Qty: 3 2RF Rx Instructions: change every 10 days (DME) Dexcom G7 Pocket Builder Misc See Rx Instructions .ROUTE .MEDSUPPLY Qty: 1 0RF Rx Instructions: As directed fluticasone propionate 50 mcg/actuation spray,suspension 1 spray intranasal DAILY furosemide [Lasix] 40 mg tablet 40 mg PO QAM PRN (Reason: edema) Qty: 90 1RF (DME) walker with seat/brakes See Rx Instructions .Route .MEDSUPPLY Qty: 1 0RF Rx Instructions: As directed, length of need 99 months (DME) neb tubing, mouth piece, hardware See Rx Instructions .Route .MEDSUPPLY Qty: 1 0RF Rx Instructions: As directed (DME) pen needle, diabetic [TechLITE Pen Needle] 32 gauge x 5/32 needle See Rx Instructions .ROUTE .COMPLEX Qty: 100 6RF Dose Instruction: USE DIRECTED TWICE DAILY Rx Instructions: USE DIRECTED TWICE DAILY ammonium lactate 12 % lotion See Rx Instructions .ROUTE .COMPLEX Qty: 227 5RF Dose Instruction: APPLY TOPICALLY TO THE AFFECTED AREA ON LOWER EXTREMITIES FROM THE KNEES DOWN TWICE DAILY FOR DRY SKIN Rx Instructions: APPLY TOPICALLY TO THE AFFECTED AREA ON LOWER EXTREMITIES FROM THE KNEES DOWN TWICE DAILY FOR DRY SKIN. enalapril maleate 20 mg tablet 30 mg PO BEDTIME 30 Days Qty: 45 5RF insulin glargine [Lantus Solostar U-100 Insulin] 100 unit/mL (3 mL) insulin pen See Rx Instructions .ROUTE .COMPLEX Qty: 72 1RF Dose Instruction: inject 40 units (0.4ml) SUBCUTANEOUSLY TWICE DAILY Rx Instructions: Inject 40 units in the morning and 20 units in the evening. liothyronine 5 mcg tablet 10 mcg PO QAM levothyroxine [Synthroid] 200 mcg tablet 200 mcg PO QAM insulin lispro [Humalog KwikPen Insulin] 100 unit/mL insulin pen 25 unit SUBCUT 6XD PRN (Reason: blood sugar) Discharge Orders: Discharge ED (Routine); Ordered 09/12/24 Ordered By: Ricky Cervantes Referrals: Tomasz Drummond DO [Primary Care Provider, Family Practice] Patient Instructions: Pain Management, Patient Portal & [place] Instructions Activity Restrictions/Additional Instructions: No significant abnormalities were noted on your labs today. Your TSH level was noted to be slightly out of normal, but should not be significant enough to cause the heart rate changes you described A referral has been placed for a Holter monitor and attempt to capture the rapid heart rate Please follow-up with your primary care as well as your operations administrative assistant as soon as possible Return to the emergency department if any rapid worsening symptoms and as needed. Print Language: [place] Citizen Coding Level of Care Code ED Cabin Supervisor for Allen Llanos
[2024-09-12 14:20] LABS: Hematocrit 41.1 % (36-47); Hemoglobin 13.80 g/dL (11.27-16.99); Mean Corpuscular HGB Conc 33.6 g/dL (30-55); Mean Corpuscular Hemoglobin 30.4 pg (27-33); Mean Corpuscular Volume 90.5 fl (85-98); Nucleated Red Blood Cells % 0 %; Platelet Count 171 10^3/cmm (157-399); Red Blood Count 4.54 10^6/uL (3.85-5.65); White Blood Count 7.26 10^3/uL (3.29-11.43)
--- NOTE | 2024-09-12 14:29 | XRR_ITS ---
PROCEDURE INFORMATION: Exam: XR Chest Exam date and time: 09/12/2024 2:31 PM Age: 79 years old Clinical indication: Other: Palpitations TECHNIQUE: Imaging protocol: Radiologic exam of the chest. Views: 1 view. COMPARISON: CT angio chest PE protcl [id number] 09/01/2024 12:56 PM FINDINGS: Lungs: Unremarkable. No consolidation. Pleural spaces: Unremarkable. No pleural effusion. No pneumothorax. Heart/Mediastinum: Unremarkable. No cardiomegaly. Bones/joints: Unremarkable. XR/XR chest 1V portable [id number] IMPRESSION: No acute findings.
[2024-09-12 14:45] LABS: Alanine Aminotransferase 41 U/L (0-33); Albumin Level 4.0 g/dL (3.5-5.2); Alkaline Phosphatase 49 U/L (35-105); Anion Gap 19.3 (5-19); Aspartate Amino Transferase 36 U/L (0-32); Blood Urea Nitrogen 16 mg/dL (8-23); Calcium 9.4 mg/dL (8.5-10.5); Carbon Dioxide 25 mmol/L (22-29); Chloride 96 mmol/L (98-107); Creatinine Clr Calc Pharmacy 60.8406; Globulin 3.1 g/dL (1.3-4.6); Glucose 185 mg/dL (65-115); Osmolality Calculated 288 mOsm/kg (285-295); Potassium 4.3 mmol/L (3.5-5.1); Sodium 136 mmol/L (136-145); Thyroid Stimulating Hormone 4.63 uIU/mL (0.27-4.20); Total Protein 7.1 g/dL (6.6-8.7)
--- NOTE | 2024-09-15 07:19 | DCPLANNER ---
Message sent to Cardiology for follow up-79yo female with a history of breast cancer, hypertension, hypothyroidism, chronic back pain, and insulin-dependent diabetes here today for evaluation of 2 episodes of palpitation that has occurred over the weekend. Both episodes have occurred while she is laying in bed and lasted approximately 2 hours. Reports the heartbeat was between 180 and 200 bpm, self resolved. Patient denies recent illness, cough, any difficulty breathing that is outside of her normal, increased caffeine intake, any other concerns at this time. Patient is nontoxic in appearance. Vital signs are stable. Differential diagnoses of the palpitations/arrhythmia include but are not limited to: Electrolyte abnormalities, TSH abnormalities, pericardial effusion, dehydration EKG did show sinus rhythm with a vent rate of 80. CBC and CMP with no acute concerning abnormalities noted. TSH is noted to be mildly elevated at 4.63. Chest x-ray with no acute abnormalities noted. Discussed these findings with patient. Advised that she may need to wear a Holter monitor to capture these episodes. Patient reports that she just got off of the Holter monitor, but did not have any of the episodes while the monitor was in place. Will still place another order due to the palpitations. Patient does state that she will be following up with cardiology and call their office tomorrow. Encourage patient to contact them as soon as possible. Return precautions provided. Patient states understanding and has no further questions or concerns at this time.
== END 2024-09-12 16:33 | disposition home or self-care (01) ==
PROVIDERS: Emergency Medicine; Emergency Provider Nurse Practitioner; PCP Family Medicine
DX: R00.2 Palpitations (principal); Z79.4 Long term (current) use of insulin; Z85.3 Personal history of malignant neoplasm of breast; E11.9 Type 2 diabetes mellitus without complications; I10 Essential (primary) hypertension
CPT/HCPCS: 36415; 71045; 80053; 84443; 85025; 93005; 93010; 99285

== ENCOUNTER → 2024-09-14 13:59 | Outpatient (BNVA) | payer MEDICARE, SELFPAY | PROVIDERS: PCP Family Medicine; Visit Provider Specialist | DX: R29.90 Unspecified symptoms and signs involving the nervous system (principal); F41.1 Generalized anxiety disorder; F44.81 Dissociative identity disorder; F44.5 Conversion disorder with seizures or convulsions; M51.16 Intervertebral disc disorders with radiculopathy, lumbar region; F25.9 Schizoaffective disorder, unspecified | CPT/HCPCS: 99214 ==

== ENCOUNTER → 2024-09-21 09:28 | Outpatient (BNVA) | payer MEDICARE, SELFPAY | PROVIDERS: PCP Family Medicine; Visit Provider Nurse Practitioner Family | DX: R00.0 Tachycardia, unspecified (principal); Z09 Encounter for follow-up examination after completed treatment for conditions other than malignant neoplasm; R06.09 Other forms of dyspnea; G47.33 Obstructive sleep apnea (adult) (pediatric); I73.9 Peripheral vascular disease, unspecified; R00.2 Palpitations; I10 Essential (primary) hypertension | CPT/HCPCS: 99214 ==

== ENCOUNTER → 2024-10-12 08:34 | Outpatient (BNVA) | payer MEDICARE, SELFPAY | PROVIDERS: PCP Family Medicine; Visit Provider Internal Medicine | DX: E06.3 Autoimmune thyroiditis (principal); G47.33 Obstructive sleep apnea (adult) (pediatric); Z79.4 Long term (current) use of insulin; E11.65 Type 2 diabetes mellitus with hyperglycemia | CPT/HCPCS: 80053; 80061; 83036; 84439; 84443 ==

== ENCOUNTER → 2024-10-14 09:22 | Outpatient (BNVA) | payer MEDICARE, SELFPAY | PROVIDERS: PCP Family Medicine; Visit Provider Clinical Nurse Specialist Adult Health | DX: M25.511 Pain in right shoulder (principal); M19.011 Primary osteoarthritis, right shoulder | CPT/HCPCS: 73030 ==

== ENCOUNTER 2024-10-18 13:11 | Oncology outpatient (recurring) (ONCR) | payer MEDICARE, SELFPAY ==
--- NOTE | 2024-10-18 14:15 | USCV_ITS ---
Alisha Hernandez Age: 79 Gender: F : 1945 Exam Date: 10/18/2024 13:26 Ordering Phys: Ella Vences NP Technologist: DANIELLA Exam Location: [facility] Indication: SoB BP: 146 / 80 HR: 78 Rhythm: Sinus Technical Quality: Suboptimal MEASUREMENTS (Male / Female) Normal Values 2D ECHO LV Diastolic Diameter PLAX 4.2 cm 4.2 - 5.9 / 3.9 - 5.3 cm IVS Diastolic Thickness 1.5 cm 0.6 - 1.0 / 0.6 - 0.9 cm IVS Systolic Thickness 1.8 cm LVPW Diastolic Thickness 1.7 cm 0.6 - 1.0 / 0.6 - 0.9 cm LVPW Systolic Thickness 2.0 cm LVOT Diameter 2.0 cm LV Ejection Fraction 2D Teich 56.2 % LV Ejection Fraction MOD 4C 52.1 % LV Ejection Fraction MOD 2C 64.6 % LV Ejection Fraction 2C AL 64.5 % LA Diameter 2.8 cm Aorta at Sinotubular Diameter 2.8 cm M-MODE LA Ao Ratio MM 1.5 AV Cusp Separation MM 1.6 cm DOPPLER AV Peak Velocity 108.0 cm/s LVOT Peak Velocity 129.0 cm/s AV Area Cont Eq vti 3.9 cm squared AV Area Cont Eq pk 3.7 cm squared MV Peak Velocity 140.0 cm/s MV Area PHT 5.9 cm squared Mitral E to A Ratio 0.8 TR Peak Velocity 104.0 cm/s TR Peak Gradient 4.3 mmHg TV Peak E Velocity 63.0 cm/s PV Peak Velocity 136.0 cm/s FINDINGS Left Ventricle Normal left ventricular size and systolic function, EF 56%. No regional wall motion abnormalities. Grade I/IV diastolic dysfunction (abnormal relaxation filling pattern), normal to mildly elevated filling pressures. Right Ventricle Possibly normal size and ejection fraction Right Atrium Could not be visualized Left Atrium Normal left atrial size. Mitral Valve Could not be visualized well Aortic Valve Could not be visualized well Tricuspid Valve Could not be visualized well Pulmonic Valve Could not be visualized well Pericardium No pericardial effusion. Aorta Normal aortic annulus size. IVC Inferior vena cava not visualized. CONCLUSIONS Normal left ventricular size and systolic function, EF 56%. No regional wall motion abnormalities. Grade I/IV diastolic dysfunction (abnormal relaxation filling pattern), normal to mildly elevated filling pressures. (Echo contrast - Optison was used to delineate the endocardium and to estimate the LV ejection fraction) Possibly normal chamber sizes There is no pericardial effusion. Technically difficult study because of the poor ultrasonic window. Dr Vianey Day MD FAC (Electronically Signed) Final Date: 19 October 2024 13:57 S
== END 2024-11-07 23:59 | disposition home or self-care (01) ==
PROVIDERS: PCP Family Medicine; Visit Provider Internal Medicine Medical Oncology
DX: Z53.9 Procedure and treatment not carried out, unspecified reason (principal); C50.411 Malignant neoplasm of upper-outer quadrant of right female breast; C50.912 Malignant neoplasm of unspecified site of left female breast; Z17.0 Estrogen receptor positive status [ER+]; C50.412 Malignant neoplasm of upper-outer quadrant of left female breast; I10 Essential (primary) hypertension
CPT/HCPCS: C8929

== ENCOUNTER → 2024-10-19 10:57 | Outpatient (BNVA) | payer MEDICARE, SELFPAY | PROVIDERS: PCP Family Medicine; Visit Provider Nurse Practitioner | DX: S59.911A Unspecified injury of right forearm, initial encounter (principal); X58.XXXA Exposure to other specified factors, initial encounter; M19.011 Primary osteoarthritis, right shoulder | CPT/HCPCS: 73060 ==

== ENCOUNTER → 2024-10-25 09:17 | Outpatient (BNVA) | payer MEDICARE, SELFPAY | PROVIDERS: PCP Family Medicine; Referring Provider Nurse Practitioner; Visit Provider Specialist | DX: M25.511 Pain in right shoulder (principal); S49.91XA Unspecified injury of right shoulder and upper arm, initial encounter; W19.XXXA Unspecified fall, initial encounter | CPT/HCPCS: 73030; 73060; 99214 ==

== ENCOUNTER 2024-10-29 01:29 | Emergency (ER) | payer MEDICARE, SELFPAY ==
--- OUTSIDE RECORDS SUMMARY | 2003-03-09 19:00 | XMS_ITS | Continuity of Care Document ---
Author Name [facility] Address [address] [place] [address] Organization [facility] Care Team Providers Care Eyelet Operator Name Role Phone [facility] Unavailable Unavailable Allergies, Adverse Reactions, Alerts Substance Category Reaction Severity Reaction type Status Date Reported Comments Source psyllium Assertion Drug allergy Active [facility] Glutens Assertion Food allergy Active [facility] Pineapple Assertion Food allergy Active [facility] metFORMIN Assertion Drug allergy Active [facility] Red Dye Assertion Food allergy Active [facility] codeine Assertion Drug allergy Active [facility] albuterol Assertion Drug allergy Active [facility]
--- OUTSIDE RECORDS SUMMARY | 2011-02-11 02:09 | XMS_ITS | Continuity of Care Document ---
Author Organization [facility] Address [address] [place] [address] Phone Care Team Providers Care Top Dyeing Machine Loader Name Role Phone Stas Grover MD Unavailable [...] D 50,000 unit Cap take 1 capsule ([id number]) by oral route 3 times Week - [...] Location Reason(s) For Visit Diagnoses Date Provider [employer] [facility], [address], [place], [place], [address] [place] [address], tel:[phone] No Information 2010 Lenore Damon [facility] [address] [place] [address] [address] [place] [address], [address] [place] [address], . tel:[phone] [employer] [facility], [address], [place], [place], [address] [place] [address], tel:[phone] No Information 2010 Sepideh Dunn. [address] [place] [address], [address] [place] [address], . tel:[phone] [employer] [facility], [address], [place], [address] [place] [address], tel:[phone] No Information 2010 Sepideh Dunn. [address] [place] [address], [address] [place] [address], . tel:[phone] [employer] [facility], [address], [place], [address] [place] [address], tel:[phone] No Information 2010 [facility], [address] [place] [address] 100 [address], [place], [address] [place] [address], . tel:[phone] [employer] [facility], [address], [place], [address] [place] [address], tel:[phone] [employer] establish care recently move[place] here [place] (chief complaint) No Information 2010 Lenore Mcclelland. [facility] [address] [facility], [facility] [address], [place], [place], [id number], [place]. tel:[phone] Family History Family Member Type Diagnosis Age At Onset No Information Payers Payer name Insurance type Covered alliance party ID Authoriza tion(s) [place] [id number] Social History Type Description Quantity Date Captured [...]
[2024-10-29 01:30] VITALS: BP 139/64; PULSE 71; RESP 16; TEMP 36.5; O2SAT 98; BMI 46.4
--- NOTE | 2024-10-29 01:36 | ECG_ITS ---
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 Measurements Intervals [place] Rate: 64 P: 12 FL: 196 QRS: 13 QRSD: 82 T: 72 QT: 403 QTc: 418 Interpretive Statements SINUS RHYTHM NONSPECIFIC T-WAVE ABNORMALITY Compared to ECG 09/12/2024 13:23:21 No significant changes Electronically Signed On 10-29-2024 14:06:44 CDT by Vianey Day M.D. [email or web address]
--- OUTSIDE RECORDS SUMMARY | 2024-10-29 01:50 | XMS_ITS | Patient Health Record ---
Author Organization [facility] Address [address] [place] [address] Care Team Providers Care Tool Lapper Hand Name Role Phone Stas Fulton MD Primary Care Provider Iván Wong Unavailable [phone] Reason For Referral No Information Medications Medication SIG (Take, Route, Frequency, Duration) Notes Start Date End Date Status Levemir 100 UNIT/ML Solution as directed Subcutaneous Act colt Synthroid 200 MCG Tablet 1 tablet in the morning on an empty stomach Orally Once a day 225mcg Active Synthroid 25 MCG Tablet 1 tablet in the morning on an empty stomach Orally Once a day 225mcg Active Omnipod DASH Pods (Gen 4) Active Lasix 40 MG Tablet 1 tablet Orally Once a day Active Vasotec 5 MG Tablet 1 tablet Orally Once a day Active HumaLOG 100 UNIT/ML Solution as directed Subcutaneous Act colt Liothyronine Sodium Active Flonase Active Social History Tobacco Use: Social History Observation Description Date Details (start date - stop date) Never Smoker NA - NA Social History Depression Screening Social Info Question Answer Notes PHQ-9 Little interest or pleasure in doing thin gs Not at all Feeling down, depressed, or [...] all Total Score 12 Interpretation Moderate Depression Drugs/Alcohol: Social Info Question Answer Notes Alcohol Screen (Audit-C) Did you have a drink containing alcohol in the past year? No Points 0 Interpretation Negative Drugs Have you used drugs other than those for medical reasons in the past 12 months? No Tobacco Use: Social Info Question Answer Notes xTobacco Use/Smoking Are you a nonsmoker Problems Problem Type SNOMED Code ICD Code Onset Dates Problem Status W/U Status Risk Notes Problem Chronic pain (27535130) Other chronic pain (G89.29) Active confirmed Problem Lumbar radiculopathy (451771444) Lumbar radiculopathy (M54.16) Active confirmed Problem Kyphosis (261573884) Kyphosis (M40.209) Active confirmed Problem Scoliosis (845004234) Scoliosis (M41.9) Active confirmed Problem Hip pain (27598972) Hip pain (M25.559) Active confirmed Problem Degeneration of lumbar intervertebral disc (96607009) Degenerative disc disease, lumbar (M51.36) Active confirmed Problem Degeneration of lumbar intervertebral disc (76095917) Disc degeneration, lumbar (M51.36) Active confirmed Plan Of Treatment Pending Test Test Name Order Date Lumbosacral Spine AP/Lat-82898 4 Lumbosacral Spine AP/Lat-06959 4 MRI Lumbar Spine w/o Cont-[id number] 10/09/19 24 MRI Lumbar Spine w/o Cont-[id number] 09/10/19 24 MRI Thoracic Spine w/o Cont-[id number] 2019 MRI Thoracic Spine w/o Cont-[id number] 2019 Schedule Confirmation 10/09/2023 Schedule Confirmation 10/09/2023 [facility] Lumbosacral Spine AP/Lat - 90234 0803/2023 [facility] Lumbosacral Spine AP/Lat - 38325 10/08 Insurance Providers Payer Name Payer Address Payer Phone Subscriber Number Group Number Insured Name Patient Relationship to Insured Coverage Start Date [place]age End Date [place] [address] [place] [phone] [id number] JULES KHOURY Self - patient is the insured [facility] Medicare Supplement [address] [place] [address] [id number] JULES KHOURY Self - patient is the insured Medical (General) History Medical History History ICD Code Measles Mumps Chicken Pox Whooping Cough Pneumonia Heart Disease Arthritis Blood/ Plasma Transfusion Back trouble High Blood pressure asthma hives bronchitis Mitral Valve Prolaspe sjogren syndrome diabetes mellitus fibromyalgia myofascial pain syndrome Osteoarthritis Surgical History Surgery Date(Month/Year) Left Shoulder x 2 Cholecystectomy 1972 SIDNEY 1977 Knee 2010 Total Knee Replacement Right Breast
--- NOTE | 2024-10-29 01:51 | XRR_ITS ---
PROCEDURE INFORMATION: Exam: XR Chest Exam date and time: 10/29/2024 1:59 AM Age: 79 years old Clinical indication: Other: Tachycardia; Additional info: Palpitations TECHNIQUE: Imaging protocol: Radiologic exam of the chest. Views: 1 view. COMPARISON: CR (CHEST, ) 09/12/2024 2:31 PM FINDINGS: Lungs: Unremarkable. No consolidation. Pleural spaces: Unremarkable. No pleural effusion. No pneumothorax. Heart/Mediastinum: Unremarkable. No cardiomegaly. Bones/joints: Unremarkable. XR/XR chest 1V portable [id number] IMPRESSION: No acute findings.
--- OUTSIDE RECORDS SUMMARY | 2024-10-29 01:51 | XMS_ITS | Patient Health Record ---
Author Organization [facility] Address [address], [place] [address] Care Team Providers Care Distribution Operation Supervisor Name Role Phone Anna Pateln Unavailable [phone] Evan Reynolds MD Unavailable Unavailable ALLERGIES Allergen [...] W/U Status Risk SNOMED Code Notes Problem Morbid obesity (E66.01) Active confirmed 745581288 Problem Gastroesophageal reflux disease, unspecified whether esophagitis present (K21.9) Active confirmed 634685711 Problem Hypertension, unspecified type (I10) Active confirmed 99073154 Problem BMI 45.0-49.9, adult (Z68.42) Active confirmed 479973615 Problem 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) Active confirmed 335687883 Problem High cholesterol (E78.00) Active confirmed 68305725 Problem History of depression (Z86.59) Active confirmed 604099076 Problem Acute arthritis (M19.90) Active confirmed 70488667 Problem High triglycerides (E78.1) Active confirmed 508234269 Problem [facility] (current) use of insulin (Z79.4) Active confirmed 564895267 Problem Type 2 diabetes mellitus without complications (E11.9) Active confirmed 558318800 Problem TOMI (obstructive sleep apnea) (G47.33) Active confirmed 71652045 PLAN OF TREATMENT Future Test Test Name Order Date Comprehensive Metabolic Panel 11/21/2022 CBC 11/21/2022 H.PYLORI 11/21/2022 Insurance Providers Payer Name Payer Address Payer Phone Subscriber Number Group Number Insured Name Patient Relationship to Insured Coverage Start Date Coverage End Date Medicare Part B [address] [facility] [id number] Alisha Hernandez Self - patient is the insured [facility] [address] [facility] [place] [address] [id number] PLAN C Alisha Hernandez Self - patient [...] Replacement 2012 Lumpectomy 2015 Gallbladder 1970 TIA 1954 Hysterectomy 1974 Hospitalization History Reason Date(Month/Year) See surgical hx
--- NOTE | 2024-10-29 01:53 | ED_ITS ---
HPI - Arrhythmia/Palpitations 2 General: Chief Complaint: Arrhythmia/Palpitations Stated Complaint: Fast Heart Rate Time Seen by Provider: 10/29/24 01:34 History of Present Illness: 79-year-old female with history of Jb steve thyroiditis, insulin-dependent diabetes mellitus, asthma, hypertension, chronic back pain, sleep apnea (uses CPAP) and prior paroxysmal atrial fibrillation presents for a sensation of rapid heartbeat noted earlier today. Patient reports that she hears a pounding in her ear whenever atrial fibrillation occurs; similar episodes have happened ?two or three times? in the past. No long-term rate-control therapy or anticoagulation has ever been prescribed. Possible triggers today include a Tatum?s frapp? (caffeine) consumed approximately 18 hours ago, increased stress and exertion from packing to move, and uncertain fluid status; she took furosemide yesterday while out all day but has not checked her weight recently. Denies chest pain, dyspnea or syncope. Sleeps well with daytime naps. Wants discharge by 10 AM to continue moving activities. No known family cardiac history due to adoption. Related Data Home Medications ?Medication ?Instructions ?Recorded ?Confirmed lidocaine 3 % topical cream 1 applic topical BID PRN P ain 09/09/23 11/22/24 [id number]-kcu-siez 18 mg-FA 400 1 tab PO DAILY 09/09/23 11/22/24 mcg-calcium 500 mg-vit K 50 mcg tablet (Women's Multivitamin) fluticasone propionate 50 1 spray intranasal DAILY 11/22/24 mcg/actuation nasal spray,suspension levothyroxine 200 mcg tablet 200 mcg PO QAM 09/01/24 0 11/22/24 (Synthroid) liothyronine 5 mcg tablet 10 mcg PO QAM 09/01/2411/22 Previous Rx's ?Medication ?Instructions ?Recorded Disposable nebulizer circuit #1 ea 11/06/21 sodium chloride 0.65 % nasal spray 2 spray intranasal Q4H PRN dry 04/08/23 aerosol (Saline Mist) nasal passages/infection #44 mL furosemide 40 mg tablet (Lasix) 40 mg PO QAM PRN edema #90 tabs 05/14/23 walker with seat/brakes #1 ea 08/27/23 neb tubing, mouth piece, hardware #1 ea 11/30/23 pen needle, diabetic 32 gauge x #100 ea 12/25/23 (TechLITE Pen Needle) ammonium lactate 12 % lotion See Rx Instructions .Rout e 04/13/24 .COMPLEX #227 grams blood-glucose sensor (Dexcom G7 #3 ea 07/20/24 Sensor device) blood-glucose,produce associate,cont #1 ea 07/20/24 (Dexcom G7 Cd Storage And Materials Make Up Helper) insulin glargine 100 unit/mL (3 See Rx Instructions .R oute 08/18/24 mL) subcutaneous pen (Lantus .COMPLEX #72 mL Solostar U-100 Insulin) enalapril maleate 20 mg tablet 30 mg (1.5 x 20 mg) PO BEDTIME for 10/18/24 blood pressure 30 days #45 tabs Humalog KwikPen Insulin 100 45 unit (0.45 mL) SUBCUT T ID #135 10/29/24 unit/mL subcutaneous (insulin mL lispro) Allergies Allergy/AdvReac Type Severity Reaction Status Date / Time tizanidine (From Zanaflex) Allergy Intermediate ADR-Itching Verified 11/22/24 09:50 albuterol Allergy ADR/ALGY-Pa Verified 11/22/24 09:50 lpitations amoxicillin Allergy na Verified 11/22/24 09:50 aspirin Allergy na Verified 11/22/24 09:50 codeine Allergy na Verified 11/22/24 09:50 fentanyl Allergy ADR-Confusi Verified 11/22/24 09:50 on gluten Allergy inflamatory Verified 11/22/24 09:50 response metformin Allergy na Verified 11/22/24 09:50 pineapple Allergy na Verified 11/22/24 09:50 psyllium Allergy sick, Verified 11/22/24 09:50 diarrhea, bloody stools red (food color) Allergy ADR-Hyperte Verified 11/22/24 09:50 nsion sulfamethoxazole (From Allergy na Verified 11/22/24 09:50 Bactrim) trimethoprim (From Bactrim) Allergy na Verified 11/22/24 09:50 PFSH ED 2 PFSH: Medical History Psychiatric care Type 2 diabetes mellitus with complication Hypertension, essential Breast cancer Obesity Intolerance to cold Goiter, nontoxic, multinodular Elevated transaminase level 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 Chronic low back pain Breast cancer treated with lumpectomy and radiation Fibromyalgia Polyarthralgia Grief Multiple personality disorder Cyrus's thyroiditis (~06/2020) Diabetes mellitus with hyperglycemia, with long-term current use of insulin AB (asthmatic bronchitis) Essential (primary) hypertension Chronic bilateral thoracic back pain Lumbar disc disease with radiculopathy Surgical History History of lumpectomy of right breast (08/30/16) Right breast lumpectomy with axillary sentinel lymph node biopsy History of total bilateral knee replacement Hx of cholecystectomy Hx of vaginal hysterectomy Family History Unknown Adopted [place] in WW[place] Social History Smoking and tobacco/nicotine status: never used tobacco/nicotine Second hand smoke exposure: No Alcohol intake: never Substance/Drug Use: never Adopted: Yes Caregiver/support person: No Lives independently: Yes Marital status: / Number of children: 1 service: No Current occupational status: unemployed and retired Do you think of yourself as: Straight/Heterosexual Current gender identity: Female Physical Exam 2 Const: COMMON NORMALS: no acute distress, patient oriented x3 and alert HENMT: COMMON NORMALS: normocephalic and atraumatic HEAD & SCALP: n ormocephalic and atraumatic Eye: COMMON NORMALS: Equal, round and reactive pupils present, EOMs intact bilaterally and no scleral icterus PUPIL: Yes Equal, round and reactive pupils present Resp: COMMON NORMALS: normal respiratory effort and No retractions Cardio: COMMON NORMALS: regular rate, regular rhythm and No murmurs present (Cardio) RATE: regular rate RHYTHM: regular rhythm GI: COMMON NORMALS: Normal to inspection, nondistended, normoactive bowel sounds present, Soft to palpation and non-tender PALPATION: Yes Soft to palpation Extremity: NARRATIVE EXTREMITY EXAM: trace edema on the feet and legs Neuro: COMMON NORMALS: patient oriented x3 SENSORIUM/ORIENTATION: Yes alert Skin: COMMON NORMALS: no rashes or lesions noted GENERAL SKIN EXAM: no rashes or lesions noted Course 2 Vital Signs: Vital signs: Vital Signs Temperature 97.7 F 10/29/24 01:30 Pulse Rate 67 10/29/24 04:06 Respiratory Rate 25 H 10/29/24 03:48 Blood Pressure 133/65 10/29/24 04:06 Pulse Oximetry 98 10/29/24 04:06 Oxygen Delivery Me thod Room Air 10/29/24 02:13 MDM - Arrhythmia/Palpitations Medical Decision Making Elderly female with known paroxysmal atrial fibrillation presents with subjective rapid heartbeat after caffeine intake, stress and possible fluid overload; no chest pain or shortness of breath reported. [Pertinent Vital Signs Not Available] Physical examination reveals no distress, clear lungs, regular rhythm and trace bilateral pedal edema. [Pertinent Labs Not Available] [Pertinent Imaging Results Not Available] Differential diagnosis centers on paroxysmal atrial fibrillation possibly precipitated by fluid retention, caffeine and stress; alternative considerations include supraventricular tachycardia or ectopy, though less likely given prior documented atrial fibrillation history. Ordered ECG, B-type natriuretic peptide, troponin, CBC, CMP and continuous telemetry; plan to consult on-call data storage specialist Dr. Reynolds if atrial fibrillation documented. If ECG and labs are normal, patient to be discharged home per her preference before 10 AM. Lab Data 10/29/24 02:30 10/29/24 02:30 Radiology Impressions Chest X-Ray 10/29/24 01:51 IMPRESSION: No acute findings. Laboratory Results WBC 6.18 10^3/uL (3.29-11.43) 10/29/24 02:30 RBC 4.48 10^6/uL (3.85-5.65) 10/29/24 02:30 Hgb 13.50 g/dL (11.27-16.99) 10/29/24 02:30 Hct 40.0 % (36-47) 10/29/24 02:30 MCV 89.3 fl (85-98) 10/29/24 02:30 MCH 30.1 pg (27-33) 10/29/24 02:30 MCHC 33.8 g/dL (30-55) 10/29/24 02:30 RDW 13.2 % (12.1-15.1) 10/29/24 02:30 Plt Count 159 10^3/cmm (157-399) 10/29/24 02:30 MPV 10.6 fL (7.4-10.4) H 10/29/24 02:30 Neut % (Auto) 53.8 % 10/29/24 02:30 Lymph % (Auto) 30.4 % 10/29/24 02:30 Wells % (Auto) 11.7 % 10/29/24 02:30 Eos % (Auto) 2.9 % 10/29/24 02:30 Baso % (Auto) 1.0 % 10/29/24 02:30 Neut # (Auto) 3.33 10^3/uL (1.8-7.7) 10/29/24 02:30 Lymph # (Auto) 1.9 10^3/uL (0.8-4.8) 10/29/24 02:30 Wells # (Auto) 0.7 10^3/uL (0.2-0.9) 10/29/24 02:30 Eos # (Auto) 0.2 10^3/uL (0.0-0.8) 10/29/24 02:30 Baso # (Auto) 0.1 10^3/uL (0.0-0.1) 10/29/24 02:30 Nucleated RBC % (auto) 0 % 10/29/24 02:30 Nucleated RBCs # 0.0 /100WBC 10/29/24 02:30 Sodium 143 mmol/L (136-145) 10/29/24 02:30 Potassium 3.8 mmol/L (3.5-5.1) 10/29/24 02:30 Chloride 109 mmol/L (98-107) H 10/29/24 02:30 Carbon Dioxide 23 mmol/L (22-29) 10/29/24 02:30 Anion Gap 14.8 (5-19) 10/29/24 02:30 BUN 16 mg/dL (8-23) 10/29/24 02:30 Creatinine 0.6 mg/dL (0.5-0.9) 10/29/24 02:30 GFR Calculation Not Reportable 10/29/24 02:30 Glucose 112 mg/dL (65-115) 10/29/24 02:30 Calculated Osmolality 298 mOsm/kg (285-295) H 10/29/24 02:30 Calcium 8.1 mg/dL (8.5-10.5) L 10/29/24 02:30 Total Bilirubin 0.3 mg/dL (0.15-1.2) 10/29/24 02:30 AST 34 U/L (0-32) H 10/29/24 02:30 ALT 37 U/L (0-33) H 10/29/24 02:30 Alkaline Phosphatase 42 U/L (35-105) 10/29/24 02:30 Troponin T Baseline 10 ng/L (0-10) 10/29/24 02:30 NT-Pro-B Natriuret Pep 85 pg/mL (0-450) 10/29/24 02:30 Total Protein 5.5 g/dL (6.6-8.7) L 10/29/24 02:30 Albumin 3.5 g/dL (3.5-5.2) 10/29/24 02:30 Globulin 2.0 g/dL (1.3-4.6) 10/29/24 02:30 TSH 3.57 uIU/mL (0.27-4.20) 10/29/24 02:30 All radiology interpretation(s) finalized by discharge EKG Data EKG 1: Interpretation: Time?0139?sinus rhythm, rate of 64, no ST segment elevation or depression, no T wave versions, QTc = 413 Other EKG comments: Chest X-Ray 10/29/24 01:51 IMPRESSION: No acute findings. Discharge Plan Discharge Patient Disposition: Home Clinical Impression: Palpitations Condition: Stable Prescriptions: No Action Women's Multivitamin 18 mg-400 mcg- 500 mg-50 mcg tablet 1 tab PO DAILY lidocaine 3 % cream 1 applic topical BID PRN (Reason: Pain) (DME) Disposable nebulizer circuit See Rx Instructions .ROUTE .MEDSUPPLY Qty: 1 2RF Rx Instructions: As directed Saline Mist 0.65 % aerosol,spray 2 spray intranasal Q4H PRN (Reason: dry nasal passages/infection) Qty: 44 0RF (DME) Dexcom G7 Sensor Device See Rx Instructions .ROUTE .MEDSUPPLY Qty: 3 2RF Rx Instructions: change every 10 days (DME) Dexcom G7 Cd Storage And Materials Make Up Helper Misc See Rx Instructions .ROUTE .MEDSUPPLY Qty: 1 0RF Rx Instructions: As directed fluticasone propionate 50 mcg/actuation spray,suspension 1 spray intranasal DAILY furosemide [Lasix] 40 mg tablet 40 mg PO QAM PRN (Reason: edema) Qty: 90 1RF (DME) walker with seat/brakes See Rx Instructions .Route .MEDSUPPLY Qty: 1 0RF Rx Instructions: As directed, length of need 99 months (DME) neb tubing, mouth piece, hardware See Rx Instructions .Route .MEDSUPPLY Qty: 1 0RF Rx Instructions: As directed (DME) pen needle, diabetic [TechLITE Pen Needle] 32 gauge x 5/32 needle See Rx Instructions .ROUTE .COMPLEX Qty: 100 6RF Dose Instruction: USE DIRECTED TWICE DAILY Rx Instructions: USE DIRECTED TWICE DAILY ammonium lactate 12 % lotion See Rx Instructions .ROUTE .COMPLEX Qty: 227 5RF Dose Instruction: APPLY TOPICALLY TO THE AFFECTED AREA ON LOWER EXTREMITIES FROM THE KNEES DOWN TWICE DAILY FOR DRY SKIN Rx Instructions: APPLY TOPICALLY TO THE AFFECTED AREA ON LOWER EXTREMITIES FROM THE KNEES DOWN TWICE DAILY FOR DRY SKIN. insulin glargine [Lantus Solostar U-100 Insulin] 100 unit/mL (3 mL) insulin pen See Rx Instructions .ROUTE .COMPLEX Qty: 72 1RF Dose Instruction: inject 40 units (0.4ml) SUBCUTANEOUSLY TWICE DAILY Rx Instructions: Inject 40 units in the morning and 20 units in the evening. enalapril maleate 20 mg tablet 30 mg PO BEDTIME 30 Days Qty: 45 0RF insulin lispro [Humalog KwikPen Insulin] 100 unit/mL insulin pen 45 unit SUBCUT TID Qty: 135 1RF liothyronine 5 mcg tablet 10 mcg PO QAM levothyroxine [Synthroid] 200 mcg tablet 200 mcg PO QAM Discharge Orders: Discharge ED (Routine); Ordered 10/29/24 Ordered By: Chino Padgett Referrals: Tomasz Drummond DO [Primary Care Provider, Family Practice] Discharge Diet: Usual diet Discharge Activity: Increase activity as tolerated Patient Instructions: Heart Palpitations (ED), Patient Portal & Sabas Instructions Activity Restrictions/Additional Instructions: Fortunately throughout your stay in the emergency department, your heart remained in sinus rhythm. EKG is reassuring. Troponin is not elevated. BNP, CBC, and CMP are unremarkable. Is safe to resume her normal medications and increase activity level gradually. Print Language: Hungarian Coding Level of Care Code ED Special Education Professional for Allen Llanos
[2024-10-29 02:13] VITALS: BP 139/64; PULSE 69; RESP 17; O2SAT 97
[2024-10-29 02:41] LABS: Hematocrit 40.0 % (36-47); Hemoglobin 13.50 g/dL (11.27-16.99); Mean Corpuscular HGB Conc 33.8 g/dL (30-55); Mean Corpuscular Hemoglobin 30.1 pg (27-33); Mean Corpuscular Volume 89.3 fl (85-98); Nucleated Red Blood Cells % 0 %; Platelet Count 159 10^3/cmm (157-399); Red Blood Count 4.48 10^6/uL (3.85-5.65); White Blood Count 6.18 10^3/uL (3.29-11.43)
[2024-10-29 03:19] LABS: Troponin(5th) Baseline 10 ng/L (0-10)
[2024-10-29 03:24] VITALS: BP 123/75; PULSE 66; RESP 20; O2SAT 98
[2024-10-29 03:26] LABS: Alanine Aminotransferase 37 U/L (0-33); Albumin Level 3.5 g/dL (3.5-5.2); Alkaline Phosphatase 42 U/L (35-105); Anion Gap 14.8 (5-19); Aspartate Amino Transferase 34 U/L (0-32); Blood Urea Nitrogen 16 mg/dL (8-23); Calcium 8.1 mg/dL (8.5-10.5); Carbon Dioxide 23 mmol/L (22-29); Chloride 109 mmol/L (98-107); Creatinine Clr Calc Pharmacy 68.7616; Globulin 2.0 g/dL (1.3-4.6); Glucose 112 mg/dL (65-115); NT Pro B Type Natriuretic Pept 85 pg/mL (0-450); Osmolality Calculated 298 mOsm/kg (285-295); Potassium 3.8 mmol/L (3.5-5.1); Sodium 143 mmol/L (136-145); Thyroid Stimulating Hormone 3.57 uIU/mL (0.27-4.20); Total Protein 5.5 g/dL (6.6-8.7)
[2024-10-29 03:48] VITALS: BP 133/65; PULSE 66; RESP 25; O2SAT 98
[2024-10-29 04:06] VITALS: BP 133/65; PULSE 67; O2SAT 98
== END 2024-10-29 04:07 | disposition home or self-care (01) ==
PROVIDERS: Emergency Provider Student in an Organized Health Care Education/Training Program; PCP Family Medicine
DX: R00.2 Palpitations (principal); Z79.4 Long term (current) use of insulin; E11.8 Type 2 diabetes mellitus with unspecified complications; I10 Essential (primary) hypertension; Z85.3 Personal history of malignant neoplasm of breast
CPT/HCPCS: 36415; 71045; 80053; 83880; 84443; 84484; 85025; 93005; 99285

== ENCOUNTER 2024-11-09 10:20 | Outpatient (CLI) | payer MEDICARE, SELFPAY ==
--- NOTE | 2024-11-09 11:00 | MR_ITS ---
WS: [id number] MRI RIGHT SHOULDER NONCONTRAST TECHNIQUE: Sagittal T2, coronal T1, T2 and proton density imaging. Axial gradient PDE imaging. CLINICAL INFORMATION: right shoulder injury COMPARISON: None. FINDINGS: Moderate degenerative arthritis AC joint with fluid and edema. Subacromial and subdeltoid fluid. High-grade tear involving the distal supraspinatus at the insertion with fluid signal defect measuring 1.2 cm. Tendinopathy supraspinatus. Tendinopathy infraspinatus. Small interstitial tears distal infraspinatus. Normal teres minor. Subscapularis tendon appears intact. Biceps tendon appears intact within the bicipital groove. Tendinopathy intra- articular biceps tendon. Advanced degenerative narrowing glenohumeral articulation with hypertrophic spurring about the humeral head and glenoid. MR/MR shoulder RT wo con* [id number] IMPRESSION: 1. Moderate degenerative arthritis AC joint with fluid and edema. Subacromia l and subdeltoid fluid 2. High-grade tear involving the distal supraspinatus at the insertion with fl uid signal defect measuring 1.2 cm. 3. Tendinopathy supraspinatus and infraspinatus. 4. Small interstitial tears infraspinatus distally 5. Biceps tendon intact within the bicipital groove. 6. Tendinopathy intra-articular biceps tendon. 7. Advanced degenerative arthritis glenohumeral articulation with hypertrophic spurring
== END 2024-11-09 10:21 | disposition home or self-care (01) ==
LOC: RAD 10:21
PROVIDERS: PCP Family Medicine; Visit Provider Specialist
DX: M19.011 Primary osteoarthritis, right shoulder (principal); M67.813 Other specified disorders of tendon, right shoulder; M75.101 Unspecified rotator cuff tear or rupture of right shoulder, not specified as traumatic
CPT/HCPCS: 73221

== ENCOUNTER → 2024-11-22 09:06 | Outpatient (BNVA) | payer MEDICARE, SELFPAY | PROVIDERS: PCP Family Medicine; Visit Provider Specialist | DX: M25.511 Pain in right shoulder (principal) | CPT/HCPCS: 99214 ==

== ENCOUNTER 2024-11-29 08:07 | Oncology outpatient (recurring) (ONCR) | payer MEDICARE, SELFPAY ==
[2024-11-29 08:59] LABS: Hematocrit 39.5 % (36-47); Hemoglobin 12.90 g/dL (11.27-16.99); Mean Corpuscular HGB Conc 32.7 g/dL (30-55); Mean Corpuscular Hemoglobin 30.5 pg (27-33); Mean Corpuscular Volume 93.4 fl (85-98); Nucleated Red Blood Cells % 0 %; Platelet Count 150 10^3/cmm (157-399); Red Blood Count 4.23 10^6/uL (3.85-5.65); White Blood Count 5.58 10^3/uL (3.29-11.43)
[2024-11-29 09:31] LABS: Alanine Aminotransferase 43 U/L (0-33); Albumin Level 3.7 g/dL (3.5-5.2); Alkaline Phosphatase 51 U/L (35-105); Anion Gap 16.2 (5-19); Aspartate Amino Transferase 53 U/L (0-32); Blood Urea Nitrogen 16 mg/dL (8-23); CA 15-3 15.9 U/mL (0-25); Calcium 8.5 mg/dL (8.5-10.5); Carbon Dioxide 23 mmol/L (22-29); Chloride 103 mmol/L (98-107); Creatinine Clr Calc Pharmacy 69.5514; Globulin 2.8 g/dL (1.3-4.6); Glucose 251 mg/dL (65-115); Osmolality Calculated 296 mOsm/kg (285-295); Potassium 4.2 mmol/L (3.5-5.1); Sodium 138 mmol/L (136-145); Total Protein 6.5 g/dL (6.6-8.7)
== END 2024-12-07 23:59 | disposition home or self-care (01) ==
PROVIDERS: PCP Family Medicine; Visit Provider Internal Medicine Medical Oncology
DX: C50.912 Malignant neoplasm of unspecified site of left female breast (principal); C50.411 Malignant neoplasm of upper-outer quadrant of right female breast; Z17.0 Estrogen receptor positive status [ER+]; Z92.3 Personal history of irradiation; Z90.12 Acquired absence of left breast and nipple
CPT/HCPCS: 36415; 80053; 85025; 86300; 99214

== ENCOUNTER → 2024-12-13 10:43 | Outpatient (BNVA) | payer MEDICARE, SELFPAY | PROVIDERS: PCP Family Medicine; Visit Provider Internal Medicine Rheumatology | DX: M13.0 Polyarthritis, unspecified (principal); M51.360 Other intervertebral disc degeneration, lumbar region with discogenic back pain only; G89.29 Other chronic pain; E06.3 Autoimmune thyroiditis; E11.65 Type 2 diabetes mellitus with hyperglycemia; Z79.4 Long term (current) use of insulin; Z86.59 Personal history of other mental and behavioral disorders; Z85.3 Personal history of malignant neoplasm of breast | CPT/HCPCS: 99214 ==

== ENCOUNTER 2025-01-15 19:42 | Emergency (ER) | payer MEDICARE, SELFPAY ==
--- OUTSIDE RECORDS SUMMARY | 2011-02-11 01:09 | XMS_ITS | Continuity of Care Document ---
Author Organization [facility] [facility] Address [address] [place] [address] Phone Care Team Providers Care Home Performance Laborer Name Role Phone Stas Grover MD Unavailable Unavailable Allergies, Adverse Reactions, Alerts Substance Reaction Status Criticality THIOPENTAL SODIUM Active No Informa tion metformin Active No Information THIOPENTAL SODIUM Active No Informa tion codeine Active No Information gluten Active No Information Medications Medication Instructions Dosage Effective Dates (start - stop) Status Comments Synthroid 125 mcg Tab take 1 tablet (125 MCG) by oral route every day 125 MCG - Active liothyronine 5 mcg Tab take 2 tablet by oral route every day - Active ramipril 5 mg Tab take 1 tablet (5MG) by oral route every bedtime - Active Niaspan Extended-Release 1,000 mg 24 hr Tab take 1 tablet (1000MG) by oral route every day at bedtime after a low-fat snack - Active Lovaza 1 gram Cap take 2 capsule (2G) by oral route 2 times every day 2 G - Active Aspir-81 81 mg Tab take 1 tablet (81MG) by oral route every day - Active chromium picolinate 200 mcg Tab daily - Active Vitamin D 50,000 unit Cap take 1 capsule ([id number]) by oral route 3 times Week - Active alendronate 70 mg Tab take 1 tablet (70M G) by oral route every week in the morning, at least 30 minutes before the first food, beverage, or medication of the day 70 MG - Active Depo-Estradiol 5 mg/mL IM Oil inject 1 milliliter (1MG) by intramuscular route every 4 weeks - Active testosterone cypionate 100 mg/mL IM Oil inject 0.5 milliliter (50MG) by intramuscular route every 4 weeks 50 MG - Active furosemide 20 mg Tab take 2 tablet by or al route every day as needed - Active Co Q-10 100 mg Cap take 1 Capsule by Or al route 3 times per Week - Active Advance Directives Directive Yes / No Effective Date File Name No Information Encounters Encounter Description Practice Location Reason(s) For Visit Diagnoses Date Provider [facility], [address], [place], [place], [address] [place] [address], tel:[phone] No Information 2010 Lenore Damon [facility] [address] [place] [address] & [address] [place] [address], [address] [place] [address], . tel:[phone] [facility], [address], [place], [address] [place] [address], tel:[phone] No Information 2010 Sepideh Dunn. [address] [place] [address], [address] [place] [address], . tel:[phone] [facility], [address], [place], [address] [place] [address], tel:[phone] No Information 2010 Sepideh Dunn. [address] [place] [address], [address] [place] [address], . tel:[phone] [facility], [address], [place], [address] [place] [address], tel:[phone] No Information 2010 Lenore Damon [facility], [address] [place] [address] 100 & [address], [place], [address] [place] [address], . tel:[phone] [facility], [address], [place], [address] [place] [address], tel:[phone] establish care recently move[place] here from [place] (chief complaint) No Information 2010 Lenore Mcclelland. [facility] [address] [facility], [facility] [address], [place], [place], [id number], [place]. tel:[phone] Family History Family Member Type Diagnosis Age At Onset No Information Payers Payer name Insurance type Covered alliance party ID Authoriza tion(s) [place] [id number] Social History Type Description Quantity Date Captured Comments Sex Female Smoking Status No Information Chief Complaint And Reason For Visit No Information Plan Of Treatment Date Type Action Status Goal Lipid Panel. Due on 011 due History Of Present Illness Encounter Date Complaint History Of Prese nt Illness No Information Instructions Date Instruction Additional Infor mation No Information Assessments Type Assessment Date No Information
--- OUTSIDE RECORDS SUMMARY | 2024-11-23 07:30 | XMS_ITS ---
Author Organization [facility] Address [address] [place] [address] Care Team Providers Care Business Rules Developer Name Role Phone Uriah Paz [phone] REASON FOR VISIT SELF REFERRED IRREGULAR HR Encounters Encounter Location Date Provider Diagnosis [facility] [address] [place] [address], [place] [address] 11/23/2024 Uriah Paz Plan Of Treatment Next Appt Details Provider Name:Uriah Paz , 01/20/2025 10:15:00 AM, [address] [place] [address], [place], [address], Provider Name:Uriah Paz , 03/31/2025 11:45:00 AM, [address] [place] [address], [place], [address], Progress Notes * JULES KHOURY VDOB:[birth year] (79 yo F)Acc No.[id number]:11/23/2024 Progress Notes Patient: Fe JULES NEWMAN V Provider: Ned Paz MD :1945 A ge:79 Y S ex:Female Date:11/23/2024 [address] [place] Subjective: * Chief Complaints: * S ELF REFERRED IRREGULAR HR * Electronic signature of Mervat Paz MD on 01/15/2025 at 07:48 PM COAL AND ASH SUPERVISOR Sign off status: Pending * Provider: Ned Paz MD Date: 0 11/23/2024 Generated for Printi ng/Faxing/eTransmitting on: 03/17/2024 07:48 PM COAL AND ASH SUPERVISOR
--- OUTSIDE RECORDS SUMMARY | 2025-01-10 04:15 | XMS_ITS ---
Author Organization [facility] Address [address] [place] [address] Care Team Providers Care Handbag Frames Inspector Name Role Phone Uriah Paz [phone] Encounters Encounter Location Date Provider Diagnosis [facility] [address] [place] [address], [place] [address] 01/10/2025 Uriah Paz Plan Of Treatment Next Appt Details Provider Name:Uriah Paz , 01/20/2025 10:15:00 AM, [address] [place] [address], [place], [address], Provider Name:Uriah Paz , 03/31/2025 11:45:00 AM, [address] [place] [address], [place], [address], Progress Notes * JULES KHOURY VDOB:[birth year] (79 yo F)Acc No.[id number]:01/10/2025 Patient: Fe JULES NEWAMN V Provider: Ned Paz MD :1945 A ge:79 Y S ex:Female Date:01/10/2025 Address[place] [id number] * Electronic signature of Mervat Paz MD on 01/15/2025 at 07:48 PM LADLE LINER HELPER Sign off status: Pending * Provider: Ned Paz MD Date: 03/12/2024 Generated for Printi ng/Faxing/eTransmitting on: 03/17/2024 07:48 PM LADLE LINER HELPER
[2025-01-15 19:44] VITALS: BP 177/82; PULSE 102; RESP 18; TEMP 36.8; O2SAT 97
--- OUTSIDE RECORDS SUMMARY | 2025-01-15 19:48 | XMS_ITS | Patient Health Record ---
Author Organization [facility] Address [address] [place], [place] [address] Care Team Providers Care Solar Technician Name Role Phone Anna Pateln Unavailable [phone] Evan Reynolds MD Unavailable Unavailable Allergies Allergen (clinical drug ingredient) Drug/Non Drug Allergy documented on EMR Reaction Allergy Type Onset Date Status aspirin Aspirin Unknown Drug Allergy Active metformin Metformin Unknown Drug Allergy Active Penicillin Unknown Drug Allergy Active Reason For Referral No Information Medications Medication SIG (Take, Route, Frequency, Duration) Notes Start Date End Date Status Synthroid 200 MCG Tablet Oral; Duration: 90 Active Fluticasone Propionate 50 MCG/ACT Suspension Nasal; Duration: 30 Ac tive Enalapril Maleate 20 MG Tablet Oral; Duration: 90 Active HumaLOG 100 UNIT/ML Solution Injection; Duration: 13 Active Triamcinolone Acetonide 0.1 % Ointment External; Duration: 30 Activ e Vasotec 2.5 MG Tablet 1 tablet Orally On ce a day; Duration: 30 day(s) 11/21/2022 Active Liothyronine Sodium 5 MCG Tablet TAKE 2 TABLETS BY MOUTH EVERY DAY at NOON Oral; Duration: 90 Active Furosemide 40 MG Tablet Oral; Duration: 90 Active Social History Tobacco Use: Social History Observation Description Date Details (start date - stop date) Never Smoker NA - NA Social History Drugs/Alcohol: Social Info Question Answer Notes Drugs Have you used drugs other than those for medical reasons in the past 12 months? No Alcohol Screen Did you have a drink containing alcohol in the past year? No Points 0 Interpretation Negative Tobacco Use: Social Info Question Answer Notes Tobacco Use/Smoking Smoking Status: nonsmoker Additional Details Category Social Info Options Details Miscellaneous: Exercise: none Caffeine: 1-2 cups per day -sodas Problems Problem Type SNOMED Code ICD Code Onset Dates Problem Status W/U Status Risk Notes Problem Obstructive sleep apnea syndrome (17777317) TOMI (obstructive sleep apnea) (G47.33) Active confirmed Problem Type II diabetes mellitus without complication (339062161) Type 2 diabetes mellitus without complications (E11.9) Active confirmed Problem Long-term current use of insulin (055827605) assistant terminal manager (current) use of insulin (Z79.4) Active confirmed Problem Pure hyperglyceridemia (071939186) High triglycerides (E78.1) Active confirmed Problem Acute arthritis (29735169) Acute arthritis (M19.90) Active confirmed Problem Morbid obesity (217055340) Morbid obesity (E66.01) Active confirmed Problem History of depression (916827626) History of depression (Z86.59) Active confirmed Problem High cholesterol (15850796) High cholesterol (E78.00) Active confirmed Problem Displacement of lumbar intervertebral disc without myelopathy (60718645) 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) Active confirmed Problem Body mass index 40+ - severely obese (107028027) BMI 45.0-49.9, adult (Z68.42) Active confirmed Problem Essential hypertension (45334874) Hypertension, unspecified type (I10) Active confirmed Problem Gastroesophageal reflux disease (775712710) Gastroesophageal reflux disease, unspecified whether esophagitis present (K21.9) Active confirmed Plan Of Treatment Future Test Test Name Order Date Comprehensive Metabolic Panel 11/21/2022 CBC 11/21/2022 H.PYLORI 11/21/2022 Insurance Providers Payer Name Payer Address Payer Phone Subscriber Number Group Number Insured Name Patient Relationship to Insured Coverage Start Date Coverage End Date Medicare Part B [address] [place] [phone] [id number] Alisha Hernandez Self - patient is the insured [facility] [address] [facility] [place] [address] [phone] [id number] PLAN C Alisha Hernandez Self - patient is the insured Medical (General) History Medical History History ICD Code Hypertension Diabetes Insulin Dep High Cholesterol High Triglycerides Sleep Apnea/Bypap Varicose Veins Low Back Syndrome Lumbar Disc Disorder Gallstones GERD H-Pylori Arthritis Irregular/Heavy Menstrual Periods Celiac Disease Depression Fibromyalgia Cyrus Asthma Surgical History Surgery Date(Month/Year) Hysterectomy 1974 TIA 1954 Gallbladder 1970 Lumpectomy 2015 Lt Knee Replacement 2012 Cataract Surgery OU 2022 Hospitalization History Reason Date(Month/Year) See surgical hx
--- OUTSIDE RECORDS SUMMARY | 2025-01-15 19:48 | XMS_ITS | Patient Health Record ---
Author Organization [facility] Address [address] [place] [address] Care Team Providers Care Saturation Diver Name Role Phone Uriah Paz [phone] Allergies Allergen (clinical drug ingredient) Drug/Non Drug Allergy documented on EMR Reaction Allergy Type Onset Date Status aspirin Aspirin Unknown Drug Allergy Active Gluten Gluten Unknown Allergy Active metformin metFORMIN Unknown Drug Allergy Active pineapple allergenic extract Pineapple (Diagnostic) Unknown Drug Allergy Activ e Results Component Value Reference Range Notes Echo Complete [id number] Reviewed date:12/29/2024 04:00:35 PM Interpretation: Performing Lab: Notes/Report: Tv Technician 30 days Reviewed date:12/29/2024 03:48:33 PM Interpretation: Performing Lab: Notes/Report: Electrocardiogram (EKG) - 93 000 Reviewed date:12/29/2024 03:55:23 PM Interpretation: Performing Lab: Notes/Report: Reason For Referral No Information Medications Medication SIG (Take, Route, Frequency, Duration) Notes Start Date End Date Status diphenhydrAMINE HCl 25 MG Capsule 1 capsule at bedtime as needed Orally Once a day Active Vasotec 10 MG Tablet 1 tablet Orally Onc e a day Active Omnipod DASH Pods (Gen 4) Active Synthroid 200 MCG Tablet 1 tablet in the morning on an empty stomach Orally Once a day Active Levemir 100 UNIT/ML Solution as directed Subcutaneous Active Liothyronine Sodium 25 MCG Tablet 1 tablet on an empty stomach Orally Once a day Active HumaLOG 100 UNIT/ML Solution as directed Subcutaneous Active Lasix 40 MG Tablet 1 tablet Orally Once a day Active Social History Tobacco Use: Social History [...] Use: Social Info Question Answer Notes Tobacco Control (Standard) Tobacco use: Nonsmoker Additional Details Category Social Info Options Details Drugs/Alcohol: Do you drink alcohol? 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) Active confirmed Problem Information temporarily unavailable Uncontrolled type 2 diabetes mellitus with hyperglycemia (E11.65) Active confirmed Problem Information temporarily unavailable Lumbar radiculopathy (M54.16) Active confirmed Problem Information temporarily unavailable Kyphosis (M40.209) Active confirmed Problem Information temporarily unavailable PVD (peripheral vascular disease) (I73.9) Active confirmed Problem Information temporarily unavailable Scoliosis (M41.9) Active confirmed Problem Information temporarily unavailable Hip pain (M25.559) Active confirmed Problem Information temporarily unavailable Acquired hypothyroidism (E03.9) Active confirmed Problem Information temporarily unavailable Degenerative disc disease, lumbar (M51.36) Active confirmed Problem Information temporarily unavailable Disc degeneration, lumbar (M51.36) Active confirmed Problem Information temporarily unavailable PAC (premature atrial contraction) (I49.1) Active confirmed Problem Information temporarily unavailable Sjogren syndrome, unspecified (M35.00) Active confirmed Vital Signs Heart Rate 84 /min 12/29/2024 Height-cm 165.1 cm 12/29/2024 Oximetry 96 % 12/29/2024 Blood pressure diastolic 58 mm Hg 12/29/2024 Weight-kg 122.92 kg 12/29/2024 Height 65 in 12/29/2024 Blood pressure systolic 122 mm Hg 12/29/2024 Weight 271 lbs 12/29/2024 BMI 45.09 kg/m2 12/29/2024 Encounters Encounter Location Date Provider Diagnosis [address] [place] [address] 12/29/2024 Uriah Paz SOB (shortness of breath) R06.02 ; Other chest pain R07.89 ; PAC (premature atrial contraction) I49.1 ; Sjogren syndrome, unspecified M35.00 ; Cognitive impairment R41.89 ; Type 2 diabetes mellitus with hyperglycemia E11.65 ; residential (current) use of insulin Z79.4 ; Acquired hypothyroidism E03.9 ; Essential (primary) hypertension I10 and PVD (peripheral vascular disease) I73.[address] [place] [address] 01/13/2025 Uriah Paz [address] [place] [address] 01/10/2025 Uriah Paz Assessments Encounter Date Diagnosis (ICD Code) Assessment Notes Treatment Notes Treatment Clinical Notes Section Notes 12/29/2024 Other chest pain (ICD-10 - R07.89) Given her episodic chest discomfort, obtain coronary CTA (+ FFR if indicated). Device was applied today. Patient was instructed on the number of days to wear device. In order to record symptoms patient must follow the prompts on the provided smart phone. Patient was instructed that the device is water resistant. They can wear the device in the shower as long as the device itself does not become submerged in water. There are extra patches in the kit provided, to allow for additional dressing changes should dressing become loose. The importance of keeping the device box was stressed. Patient will need to place the device into the box and take this to the nearest UPS drop box once monitoring period complete. We will contact them with the results once the report is finalized. 12/29/2024 SOB (shortness of breath) (ICD-10 - R06.02) Obtain echo for routine structural evaluation. 12/29/2024 PAC (premature atrial contraction) (ICD-10 - I49.1) Obtain 30-day campus monitor for further evaluation of palpitations. 12/29/2024 Sjogren syndrome, unspecified (ICD-10 - M35.00) 12/29/2024 Cognitive impairment (ICD-10 - R41.89) The patient reports memory impairment and is concerned about her risk for Klamath's disease, Parkinson's disease, etc., and has expressed interest in genetic testing. I have recommended [id number] r genetic testing, which can be ordered online. 12/29/2024 Type 2 diabetes mellitus with hyperglycemia (ICD-10 - E11.65) Maintained on HumaLOG and Levemir. 12/29/2024 residential (current) use of insulin (ICD-10 - Z79.4) 12/29/2024 Acquired hypothyroidism (ICD-10 - E03.9) Maintained on Synthroid. 12/29/2024 Essential (primary) hypertension (ICD-10 - I10) 12/29/2024 PVD (peripheral vascular disease) (ICD-10 - I73.9) 12/29/2024 Other Follow up in 6 months, or sooner if needed. Lis Gongora, am scribing for Uriah Paz MD. IUriah MD, personally performed the services prescribed in this documentation, as scribed by Lis Hyde, and it is both accurate and complete. Plan Of Treatment Pending Test Test Name Order Date Basic Metabolic Panel (BMP) 08944 2024 Lumbosacral Spine AP/Lat-[id number] MRI Lumbar Spine w/o Cont-13531 09/10/19 MRI Lumbar Spine w/o Cont-[id number] 10/09/19 Schedule Confirmation 10/09/2023 Schedule Confirmation 10/09/2023 Schedule Confirmation 01/31/2025 Schedule Confirmation 01/31/2025 Schedule Confirmation 01/31/2025 IH Lumbosacral Spine AP/Lat - [id number] 08/03/2023 CTA Coronary with FFR if Indicated-[id number] 12/29/2024 Next Appt Details Provider Name:Uriah Paz , 01/20/2025 10:15:00 AM, [address] [place], [address], Provider Name:Uriah Paz , 03/31/2025 11:45:00 AM, [address] [place], [address], Insurance Providers Payer Name Payer Address Payer Phone Subscriber Number Group Number Insured Name Patient Relationship to Insured Coverage Start Date Coverage End Date [place] Medicare [address] [place] TEJADA [phone] [id number] JULES KHOURY Self - patient is the insured [facility] Medicare Supplement [address] [place] Zelaya [phone] [id number] JULES KHOURY Self - patient is the insured Medical (General) History Medical History History ICD Code Measles Mumps Chicken Pox Whooping Cough Pneumonia Heart Disease Arthritis Blood/ Plasma Transfusion Back trouble High Blood pressure asthma hives bronchitis Mitral Valve Prolaspe sjogren syndrome diabetes mellitus fibromyalgia myofascial pain syndrome Osteoarthritis CELIAC DISEASE c-pap at night Surgical History Surgery Date(Month/Year) MELANOMA REMOVAL ON SHOULDER Cholecystectomy 1972 BILAT KNEE REPLACEMENT 2009 BILAT CATARACTS 2021 CANCER SURGERY 2023 Hospitalization History Reason Date(Month/Year) HIGH HR 06/2024
--- NOTE | 2025-01-15 20:28 | USR_ITS ---
PROCEDURE INFORMATION: Exam: US Duplex Right Lower Extremity Veins, Limited Exam date and time: 01/15/2025 9:32 PM Age: 79 years old Clinical indication: Pain; Leg, lower; Right; Additional info: Rle pain swelling TECHNIQUE: Imaging protocol: Real-time duplex ultrasound of the right extremity with 2-D dumont scale, color Doppler flow and spectral waveform analysis including responses to compression and other maneuvers (when performed) with image documentation. Limited exam was focused on the right lower extremity veins. COMPARISON: CT chest abdpel w/*[id number] 04/22/2024 11:57 AM FINDINGS: Right deep veins: Unremarkable. The common femoral, femoral, proximal profunda femoral and popliteal veins are patent without thrombus. Normal Doppler waveforms. Normal compressibility and/or augmentation response. Superficial veins: Greater saphenous vein at the saphenofemoral junction is patent without thrombus. Soft tissues: Mild diffuse soft tissue edema. Impression. Other: Technically limited evaluation secondary to mild diffuse soft tissue edema. Somewhat limited sonographic windows of the superficial femoral vein and venous structures below the level of the knee. US/[place] [id number] IMPRESSION: No evidence of deep vein thrombosis within the limitations of the this evaluation.
== END 2025-01-15 23:12 | disposition left against medical advice (07) ==
PROVIDERS: Emergency Provider Family Medicine; PCP Family Medicine
DX: Z01.89 Encounter for other specified special examinations (principal); M79.604 Pain in right leg; M79.89 Other specified soft tissue disorders; Z53.21 Procedure and treatment not carried out due to patient leaving prior to being seen by health care provider
CPT/HCPCS: 93971

== ENCOUNTER 2025-02-24 10:03 | Outpatient (CLI) | payer MEDICARE, SELFPAY ==
--- NOTE | 2025-02-24 10:45 | MM_ITS ---
WS: [id number] Right breast diagnostic 3D tomosynthesis digital mammogram, 02/24/2025 Clinical Data: hst of breast cancer Comparison: 07/14/2023, 08/26/2022, 09/23/2019, 08/11/2018, 07/17/2017, 08/30/2016, 08/06/2016, 07/18/2016, 06/19/2016, 04/17/2015, 01/24/2011. Findings: The right breast shows a spiculated density in the anterior aspect seen best on the cc view unchanged. The RMLO view shows dystrophic calcifications unchanged. The skin is thickened from treatment. There are biopsy clips in the right axilla. MM/MM diag RT tomosynthesis [id number] Impression: 1. Post treatment changes of the right breast showing a spiculated unchanged de nsity, skin thickening and dystrophic calcification. 2. Recommend 1 year follow-up. DENSITY: There are scattered areas of fibroglandular density. BIRADS: 2 - Benign. FOLLOW UP: 1 Year Follow-up The CAD field checker was used.
== END 2025-02-24 10:04 | disposition home or self-care (01) ==
LOC: RAD 10:06
PROVIDERS: PCP Family Medicine; Visit Provider Family Medicine
DX: Z12.31 Encounter for screening mammogram for malignant neoplasm of breast (principal); R92.1 Mammographic calcification found on diagnostic imaging of breast; R92.8 Other abnormal and inconclusive findings on diagnostic imaging of breast; R92.323 Mammographic fibroglandular density, bilateral breasts
CPT/HCPCS: 77061; G0279

== ENCOUNTER → 2025-03-07 07:23 | Outpatient (BNVA) | payer MEDICARE, SELFPAY | PROVIDERS: PCP Family Medicine; Visit Provider Podiatrist Foot & Ankle Surgery | DX: L60.0 Ingrowing nail (principal); R60.0 Localized edema; E11.65 Type 2 diabetes mellitus with hyperglycemia; Z79.4 Long term (current) use of insulin; I73.9 Peripheral vascular disease, unspecified; L60.3 Nail dystrophy; L03.115 Cellulitis of right lower limb | CPT/HCPCS: 11730; 99214; J9999 ==